=== PATIENT | female | born 1980 | race Caucasian/White ===

== ENCOUNTER 2016-09-11 19:09 | Emergency (ER) | payer MEDICAID ==
[~2016-09-11] VITALS: Ht 162.6 cm; Wt 68.0 kg
[~2016-09-11 19:09] MED LIST: CLIN1CAP6 PO; MAGICADU2 SWISH-SWAL; ZANT150T2 PO
[2016-09-11 19:13] VITALS: BP 128/76; PULSE 98; RESP 14; TEMP 98.2; O2SAT 96
== END 2016-09-11 22:10 | disposition left against medical advice (07) ==
LOC: NED 19:09
DX: R50.9 Fever, unspecified (principal)
CPT/HCPCS: 99281

== ENCOUNTER 2016-09-21 12:05 | Emergency (ER) | payer MEDICAID ==
[~2016-09-21] VITALS: Ht 162.6 cm; Wt 86.4 kg
[2016-09-21 12:07] VITALS: BP 119/68; PULSE 84; RESP 14; TEMP 98; O2SAT 98
--- NOTE | 2016-09-21 12:49 | PD ---
HPI . nausea and vomiting since yesterday Chief Complaint: Abdominal Pain Time Seen by Provider: 12:48 Travel History International Travel<30 days: No Contact w/Intl Traveler<30days: No Traveled to known affect area: No History of Present Illness HPI 36-year-old female with anxiety and depression here stating that she is 10 weeks and has had nausea for 1 day. Patient says she has been unable to keep down any food or liquids and was concerned about dehydration. She was treated approximately 2 weeks ago at another hospital for urinary tract infection. She tells me that she is urinating frequently and often time coincides with her vomiting. She denies any abdominal pain. She is concerned that she may have the flu. She has not yet established with an LAW RESEARCHER in the area. Patient denies any fever, chills, shortness of breath, chest pain, abdominal pain, weakness or fatigue. PFSH Past Medical History Arthritis: Yes Bipolar Disorder: Yes Anxiety: Yes Depression: Yes Cancer: No Cardiovascular Problems: No Diabetes: No Headaches: No Psychiatric: Yes (Reports treatment for bipolar disorder since age 13) Schizophrenia: Yes Seizures: No ?: : 8 Para: 5 Social History Alcohol Use: Yes Tobacco Use: Yes (07/27 ppd) Substance Use: Yes Allergies-Medications (Allergen,Severity, Reaction): Coded Allergies: Erythromycin (Verified Allergy, Severe, Anaphylaxis, 09/21/16) Penicillin (Verified Allergy, Severe, Anaphylaxis, 09/21/16) Naproxen (Verified Allergy, Intermediate, Hives, 09/21/16) Sulfa (Verified Allergy, Unknown, 09/21/16) Reported Meds & Prescriptions Reported Meds & Active Scripts Active Reglan (Metoclopramide HCl) 5 Mg Tab 5 Mg PO TIDAC Zantac (Ranitidine HCl) 150 Mg Tab 150 Mg PO BID Clindamycin (Clindamycin HCl) 300 Mg Cap 300 Mg PO TID Magic Mouthwash Adult Liq (Multi-Ingredient Mouthwash/Gargle) 120 Ml Susp 5 Ml SWISH-SWAL QID Each 5 mL contains: Nystatin 200,000 units, Diphenhydramine 4.25 mg, Viscous Lidocaine 10 mg, Talley syrup 0.8 mL Review of Systems General / Constitutional: No: Fever Eyes: No: Visual changes HENT: No: Headaches Cardiovascular: No: Chest Pain or Discomfort Respiratory: No: Shortness of Breath Gastrointestinal: Positive: Nausea, Vomiting, No: Abdominal Pain Genitourinary: No: Dysuria Musculoskeletal: No: Pain Skin: No Rash Neurologic: No: Weakness Psychiatric: No: Depression Endocrine: No: Polydipsia Hematologic/Lymphatic: No: Easy Bruising Physical Exam Narrative GENERAL: AAO x 3, no acute distress, Well-nourished, well-developed patient. Comfortable without any signs of distress. SKIN: Warm and dry. No visible rashes or bruising. HEAD: Normocephalic and atraumatic. EYES: No scleral icterus. No injection or drainage. EOM intact, PERRLA ENT: No nasal drainage noted. Mucous membranes pink. Airway patent. NECK: Supple, trachea midline. No JVD. CARDIOVASCULAR: Regular rate and rhythm without murmurs, gallops, or rubs. RESPIRATORY: Breath sounds equal bilaterally. No accessory muscle use. No rhonchi or rales. GASTROINTESTINAL: Abdomen soft, non-tender, nondistended. EXTREMITIES: No cyanosis or edema. BACK: Nontender without obvious deformity. No CVA tenderness. PSYCH: AAO x 3, normal affect. Data Data Last Documented VS Vital Signs Date Time Temp Pulse Resp B/P Pulse Ox O2 Delivery O2 Flow Rate FiO2 09/21/16 15:02 148/61 09/21/16 12:07 98.0 84 14 98 Orders Complete Blood Count With Diff (09/21/16 12:56) Urinalysis - C+S If Indicated (09/21/16 12:56) Influenzae A/B Antigen (09/21/16 12:56) Beta Hcg (Quant/Titer) (09/21/16 12:59) Sodium Chlor 0.9% 1000 Ml Inj (Ns 1000 M (09/21/16 14:00) Prochlorperazine Inj (Compazine Inj) (09/21/16 14:00) Basic Metabolic Panel (Bmp) (09/21/16 13:30) Metoclopramide Inj (Reglan Inj) (09/21/16 14:15) Sodium Chlor 0.9% 1000 Ml Inj (Ns 1000 M (09/21/16 15:30) Labs Laboratory Tests Test 09/21/16 13:30 White Blood Count 17.6 TH/MM3 Red Blood Count 4.74 MIL/MM3 Hemoglobin 14.5 GM/DL Hematocrit 42.8 % Mean Corpuscular Volume 90.2 FL Mean Corpuscular Hemoglobin 30.5 PG Mean Corpuscular Hemoglobin 33.8 % Concent Red Cell Distribution Width 12.9 % Platelet Count 310 TH/MM3 Mean Platelet Volume 8.7 FL Neutrophils (%) (Auto) 74.7 % Lymphocytes (%) (Auto) 20.0 % Monocytes (%) (Auto) 4.7 % Eosinophils (%) (Auto) 0.2 % Basophils (%) (Auto) 0.4 % Neutrophils # (Auto) 13.1 TH/MM3 Lymphocytes # (Auto) 3.5 TH/MM3 Monocytes # (Auto) 0.8 TH/MM3 Eosinophils # (Auto) 0.0 TH/MM3 Basophils # (Auto) 0.1 TH/MM3 CBC Comment DIFF FINAL Differential Comment Urine Color YELLOW Urine Turbidity CLEAR Urine pH 6.0 Urine Specific [place] 1.030 Urine Protein TRACE mg/dL Urine Glucose (UA) NEG mg/dL Urine Ketones 80 mg/dL Urine Occult Blood NEG Urine Nitrite NEG Urine Bilirubin NEG Urine Urobilinogen LESS THAN 2.0 MG/DL Urine Leukocyte Esterase NEG Urine RBC 3 /hpf Urine WBC 2 /hpf Urine Squamous Epithelial 4 /hpf Cells Urine Mucus MANY /lpf Microscopic Urinalysis Comment CULT NOT INDICATED Sodium Level 139 MEQ/L Potassium Level 4.3 MEQ/L Chloride Level 107 MEQ/L Carbon Dioxide Level 22.4 MEQ/L Anion Gap 10 MEQ/L Blood Urea Nitrogen 12 MG/DL Creatinine 0.62 MG/DL Estimat Glomerular Filtration 108 ML/MIN Rate Random Glucose 78 MG/DL Calcium Level 9.2 MG/DL Human Chorionic Gonadotropin, [id number] MIU/ML Quant [facility] Medical Decision Making Medical Screen Exam Complete: Yes Emergency Medical Condition: Yes Medical Record Reviewed: Yes Differential Diagnosis Gastroenteritis, hyperemesis gravidarum, influenza Narrative Course 36-year-old female with anxiety and depression here stating that she is 10 weeks and has had nausea for 1 day. Patient says she has been unable to keep down any food or liquids and was concerned about dehydration. She was treated approximately 2 weeks ago at another hospital for urinary tract infection. She tells me that she is urinating frequently and often time coincides with her vomiting. She denies any abdominal pain. She is concerned that she may have the flu. She has not yet established with an LAW RESEARCHER in the area. Patient denies any fever, chills, shortness of breath, chest pain, abdominal pain, weakness or fatigue. Labs ordered. Results appreciated. Laboratory Tests Test 09/21/16 13:30 White Blood Count 17.6 TH/MM3 Red Blood Count 4.74 MIL/MM3 Hemoglobin 14.5 GM/DL Hematocrit 42.8 % Mean Corpuscular Volume 90.2 FL Mean Corpuscular Hemoglobin 30.5 PG Mean Corpuscular Hemoglobin 33.8 % Concent Red Cell Distribution Width 12.9 % Platelet Count 310 TH/MM3 Mean Platelet Volume 8.7 FL Neutrophils (%) (Auto) 74.7 % Lymphocytes (%) (Auto) 20.0 % Monocytes (%) (Auto) 4.7 % Eosinophils (%) (Auto) 0.2 % Basophils (%) (Auto) 0.4 % Neutrophils # (Auto) 13.1 TH/MM3 Lymphocytes # (Auto) 3.5 TH/MM3 Monocytes # (Auto) 0.8 TH/MM3 Eosinophils # (Auto) 0.0 TH/MM3 Basophils # (Auto) 0.1 TH/MM3 CBC Comment DIFF FINAL Differential Comment Urine Color YELLOW Urine Turbidity CLEAR Urine pH 6.0 Urine Specific [place] 1.030 Urine Protein TRACE mg/dL Urine Glucose (UA) NEG mg/dL Urine Ketones 80 mg/dL Urine Occult Blood NEG Urine Nitrite NEG Urine Bilirubin NEG Urine Urobilinogen LESS THAN 2.0 MG/DL Urine Leukocyte Esterase NEG Urine RBC 3 /hpf Urine WBC 2 /hpf Urine Squamous Epithelial 4 /hpf Cells Urine Mucus MANY /lpf Microscopic Urinalysis Comment CULT NOT INDICATED Sodium Level 139 MEQ/L Potassium Level 4.3 MEQ/L Chloride Level 107 MEQ/L Carbon Dioxide Level 22.4 MEQ/L Anion Gap 10 MEQ/L Blood Urea Nitrogen 12 MG/DL Creatinine 0.62 MG/DL Estimat Glomerular Filtration 108 ML/MIN Rate Random Glucose 78 MG/DL Calcium Level 9.2 MG/DL Human Chorionic Gonadotropin, [id number] MIU/ML Quant Date/Time Procedure Status Source Growth 09/21/16 13:30 Influenza Types A,B Antigen ([facility]) - Final Complete Nasal Washing NEGATIVE FOR FLU A AND B ANTIGEN.... discussed with Dr. Boyd. Will provide 2 liters of fluid and discharge. Patient has been instructed to f/u with endoscopy support specialist Provided short rx of Reglan Patient verbalized understanding of instructions, questions were answered, and thanked me for their care. I advised them if their condition worsens, please return to the nearest emergency room for further care. Diagnosis Primary Impression: Nausea & vomiting Qualified Code: R11.2 - Non-intractable vomiting with nausea, unspecified vomiting type Additional Impression: Hyperemesis gravidarum Patient Instructions: General Instructions, Hyperemesis Gravidarum (ED) Additional Instructions: Please return to emergency department if your symptoms return or worsen. Follow up with your primary care provider. You will need to establish with an ob /scrum project manager as soon as possible. Take medications as prescribed. Med/Other Pt SpecificInfo: Prescription(s) given Scripts Metoclopramide (Reglan)5 Mg Tab5 Mg PO TIDAC #20 TAB Ref 0 Prov:Shanta Seymour 09/21/16 Disposition: 01 DISCHARGE HOME Condition: Stable Shanta Seymour Sep 21, 2016 12:49
[2016-09-21] MEDS ORDERED: SODIUM CHLOR 0.9% 1000 ML INJ 1,000 ML IV ONE ×2 (14:00→15:30)
[2016-09-21] MEDS ORDERED: PROCHLORPERAZINE INJ 10 MG/2 ML VIAL IVS ONE (14:00)
[2016-09-21 14:02] LABS: AUTOMATED NEUTROPHIL # 13.1 TH/MM3 (1.8-7.7); BASOPHIL # 0.1 TH/MM3 (0-0.2); BASOPHIL % 0.4 % (0.0-2.0); EOSINOPHIL % 0.2 % (0.0-4.0); HEMATOCRIT 42.8 % (35.0-46.0); HEMO FLAGS DIFF FINAL; LYMPHOCYTE # 3.5 TH/MM3 (1.0-4.8); MEAN CELL VOLUME 90.2 FL (80.0-100.0); MEAN CORPUSCULAR HEMOGLOBIN 30.5 PG (27.0-34.0); MEAN CORPUSCULAR HGB CONC 33.8 % (32.0-36.0); MONO % 4.7 % (0.0-8.0); NEUT % 74.7 % (16.0-70.0); PLATELET COUNT 310 TH/MM3 (150-450); RED BLOOD COUNT 4.74 MIL/MM3 (4.00-5.30); RED CELL DISTRIBUTION WIDTH 12.9 % (11.6-17.2); WHITE BLOOD COUNT 17.6 TH/MM3 (4.0-11.0)
[2016-09-21] MEDS ORDERED: METOCLOPRAMIDE HCL 10 MG/2 ML VIAL IV PUSH ONE (14:15)
[2016-09-21 14:20] LABS: BICARBONATE 22.4 MEQ/L (21.0-32.0)
[2016-09-21 14:23] LABS: POTASSIUM 4.3 MEQ/L (3.5-5.1)
[2016-09-21 14:36] LABS: BLOOD, URINE NEG (NEG); COMMENT (UR) CULT NOT INDICATED; CULTURE IF INDICATED CULT NOT INDICATED; GLUCOSE,URINE NEG (NEG); KETONE, URINE 80 mg/dL (NEG); MUCUS URINE MANY /lpf (OCC); NITRITE,URINE NEG (NEG); SQUAMOUS EPITHELIAL CELL URINE 4 /hpf (0-5); URINE COLOR YELLOW (YELLW/STRAW)
[2016-09-21 15:02] VITALS: BP 148/61
[2016-09-21] MEDS ORDERED: REGL5TAB PO (15:48)
[2016-09-21 16:46] VITALS: BP 142/75
== END 2016-09-21 16:50 | disposition home or self-care (01) ==
LOC: NEPC 12:05
DX: O21.0 Mild hyperemesis gravidarum (principal); R35.0 Frequency of micturition; F17.200 Nicotine dependence, unspecified, uncomplicated; Z87.39 Personal history of other diseases of the musculoskeletal system and connective tissue; Z86.59 Personal history of other mental and behavioral disorders; Z3A.10 10 weeks gestation of pregnancy
CPT/HCPCS: 80048; 81001; 84702; 85025; 87804; 96361; 96374; 99284; J2765; J7030

== ENCOUNTER 2016-12-28 04:00 | Emergency (ER) | payer MEDICAID ==
[~2016-12-28] VITALS: Ht 162.6 cm; Wt 90.0 kg
[~2016-12-28 04:00] MED LIST changes: +REGL5TAB PO
[2016-12-28 04:01] VITALS: BP 105/63; PULSE 79; RESP 18; TEMP 97.9; O2SAT 98
[2016-12-28 04:51] LABS: BLOOD, URINE NEG (NEG); GLUCOSE,URINE NEG (NEG); KETONE, URINE NEG (NEG); NITRITE,URINE NEG (NEG); PH, URINE 5.5 (5.0-8.5); URINE COLOR YELLOW (YELLW/STRAW)
[2016-12-28 04:56] LABS: WBC, URINE 0-2 /hpf (0-5)
[2016-12-28 04:57] LABS: BACTERIA, URINE RARE /hpf; COMMENT (UR) CULT NOT INDICATED; CULTURE IF INDICATED CULT NOT INDICATED; SQUAMOUS EPITHELIAL CELL URINE > 8 /hpf (0-5)
--- NOTE | 2016-12-28 06:25 | PD ---
HPI Chief Complaint: Complaint Time Seen by Provider: 04:31 Travel History International Travel<30 days: No Contact w/Intl Traveler<30days: No Traveled to known affect area: No History of Present Illness HPI The patient is a 36 year old female reportedly at 6 months gestation who presents to the [facility] emergency department with a history of abdominal cramping that began last night. She reports having a cramping sensation over her bladder with stress incontinence when she coughs. The patient reports that she believes she has a urinary tract infection. She denies having any vaginal discharge or vaginal bleeding. The patient reports that her due date is in April. The patient reports that she is feeling the baby move well. The patient reports that her [facility] The patient denies any recent fevers, cough, congestion, neck pain, chest pain, shortness of breath, vomiting, diarrhea, or neurologic symptoms. 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 Arthritis: Yes Bipolar Disorder: Yes Anxiety: Yes Depression: Yes Cancer: No Cardiovascular Problems: No Diabetes: No Headaches: No Psychiatric: Yes (Reports treatment for bipolar disorder since age 13) Schizophrenia: Yes Seizures: No ?: LMP: 05/2016 : 8 Para: 5 Past Surgical History Narrative Surgical The patient's past surgical history is reportedly none. Social History Alcohol Use: No Tobacco Use: Yes (2 packs over a week) Substance Use: No Allergies-Medications (Allergen,Severity, Reaction): Coded Allergies: Erythromycin (Verified Allergy, Severe, Anaphylaxis, 09/21/16) Penicillin (Verified Allergy, Severe, Anaphylaxis, 09/21/16) Naproxen (Verified Allergy, Intermediate, Hives, 09/21/16) Sulfa (Verified Allergy, Unknown, 09/21/16) Reported Meds & Prescriptions Reported Meds & Active Scripts Active Reglan (Metoclopramide HCl) 5 Mg Tab 5 Mg PO TIDAC Zantac (Ranitidine HCl) 150 Mg Tab 150 Mg PO BID Clindamycin (Clindamycin HCl) 300 Mg Cap 300 Mg PO TID Magic Mouthwash Adult Liq (Multi-Ingredient Mouthwash/Gargle) 120 Ml Susp 5 Ml SWISH-SWAL QID Each 5 mL contains: Nystatin 200,000 units, Diphenhydramine 4.25 mg, Viscous Lidocaine 10 mg, Talley syrup 0.8 mL Review of Systems Except as stated in HPI: all other systems reviewed are Neg General / Constitutional: No: Fever Eyes: No: Visual changes HENT: No: Headaches Cardiovascular: No: Chest Pain or Discomfort Respiratory: No: Shortness of Breath Gastrointestinal: Positive: Abdominal Pain, No: Nausea, Vomiting, Diarrhea Genitourinary: Positive: Urgency, Frequency, Dribbling, Incontinence, No: Dysuria, Discharge, Vaginal Bleeding Musculoskeletal: No: Pain Skin: No Rash Neurologic: No: Weakness Psychiatric: No: Depression Endocrine: No: Polydipsia Hematologic/Lymphatic: No: Easy Bruising Physical Exam Narrative General: The patient is a well-developed well-nourished female in no acute distress. Head and Neck exam: Head is normocephalic atraumatic. Eyes: EOMI, pupils are equal round and reactive to light. Nose: Midline septum with pink mucous membranes Mouth: Dentition unremarkable. Moist mucus membranes. Posterior oropharynx is not erythematous. No tonsillar hypertrophy. Uvula midline. Airway patent. Neck: No palpable lymphadenopathy. No nuchal rigidity. No thyromegaly. Cardiovascular: Regular rate and rhythm without murmurs, gallops, or rubs. Lungs: Clear to auscultation bilaterally. No wheezes, rhonchi, or rales. Abdomen: Soft, with the fundus well above the umbilicus on palpation. No tenderness on palpation of the 4 quadrants of the abdomen No guarding, rebound, or rigidity. Negative [place] sign. Normal bowel sounds are audible. No tenderness on palpation of McBurney's point. Extremities: No clubbing or cyanosis. The patient has trace pedal edema bilateral lower extremities. 2+ pulses in all 4 extremities. No calf tenderness on palpation. Back: No costovertebral angle tenderness to palpation. Neurologic Exam: Cranial nerves 2-12 were intact on exam. Strength is 5/5 in all 4 extremities. No sensory deficits noted. The patient is oriented to person, place, time, and situation. Skin Exam: No rash noted. Intact skin that is warm and dry. Data Data Last Documented VS Vital Signs Date Time Temp Pulse Resp B/P Pulse Ox O2 Delivery O2 Flow Rate FiO2 6//17 04:01 97.9 79 18 105/63 98 Room Air Orders Urinalysis - C+S If Indicated (12/28/16 04:31) Gc And Chlamydia Pcr (12/28/16 05:25) Wet Prep Profile (12/28/16 05:25) Ed Urine Pregnancytest Poc (12/28/16 05:25) Labs Laboratory Tests Test 12/28/16 04:30 Urine Color YELLOW Urine Turbidity HAZY Urine pH 5.5 Urine Specific [place] 1.010 Urine Protein NEG mg/dL Urine Glucose (UA) NEG mg/dL Urine Ketones NEG mg/dL Urine Occult Blood NEG Urine Nitrite NEG Urine Bilirubin NEG Urine Urobilinogen LESS THAN 2.0 MG/DL Urine Leukocyte Esterase NEG Urine WBC 0-2 /hpf Urine Squamous Epithelial > 8 /hpf Cells Urine Bacteria RARE /hpf Microscopic Urinalysis Comment CULT NOT INDICATED MDM Medical Decision Making Medical Screen Exam Complete: Yes Emergency Medical Condition: Yes Medical Record Reviewed: Yes Differential Diagnosis labor, versus urinary tract infection, versus dehydration, versus premature rupture of membranes Narrative Course During the course of the patients emergency department visit, the patients history, examination, and differential diagnosis were reviewed with the patient. Initially, the patient's nurse was not aware that the patient was as far along as she is in this . Initially, the patient had not reported cramping in the suprapubic area. After my initial evaluation of the patient, it was deemed necessary for the patient to be evaluated in OB ED. I explained this patient is a patient could be in labor, versus have premature rupture of membranes, however in spite of this the patient refused to go to labor and delivery. She reports that she will instead follow-up with her OB/ [employer] ABATEMENT TECHNICIAN later today. I explained that if she is in labor reports experiencing cervical dilatation this could be too late for treatment. In spite of this the patient has elected to leave AGAINST MEDICAL ADVICE. The patients laboratory studies were reviewed and remarkable for a urinalysis that shows hazy urine, greater than 8 squamous epithelial cells. Bedside test is positive. AMA: The risks of leaving against medical advice without further evaluation treatment were discussed with the patient. These risks include premature delivery, versus demise, versus endometritis. The patient indicated understanding of these risks and appeared to have the capacity to make this decision. Diagnosis Primary Impression: Abdominal pain affecting Referrals: Registered Art Therapist Patient Instructions: Abdominal Pain in (ED), General Instructions Disposition: 07 AGAINST MEDICAL ADVICE Condition: Stable Gabrielle Vazquez MD Dec 28, 2016 06:25
== END 2016-12-28 06:25 | disposition left against medical advice (07) ==
LOC: NEPE 04:00 → HOBED 06:25
DX: O26.899 Other specified pregnancy related conditions, unspecified trimester (principal); R10.9 Unspecified abdominal pain; Z3A.00 Weeks of gestation of pregnancy not specified
CPT/HCPCS: 81001; 84703; 99282

== ENCOUNTER 2017-01-17 11:27 | Emergency (ER) | payer MEDICAID ==
[2017-01-17] MEDS ORDERED: ONDANSETRON HCL 4 MG/2 ML VIAL IV ONE (12:00)
[2017-01-17] MEDS ORDERED: METOCLOPRAMIDE HCL 10 MG/2 ML VIAL IV PUSH ONE (12:00)
[2017-01-17] MEDS ORDERED: LACTATED RINGER'S 1000 ML INJ 1,000 ML IV SCH (12:00)
[2017-01-17] MEDS ORDERED: PROM25TA10 PO (12:11)
--- NOTE | 2017-01-17 12:11 | PD ---
HPI Chief Complaint Nausea and vomiting Date Seen: Jan 17, 2017 Travel History International Travel<30 Days: No Contact w/Intl Traveler<30Days: No Known Affected Area: No History of Present Illness HPI Patient is 36-year-old white female A2 at 28 weeks who presents complaining of nausea and vomiting last several days. Denies bleeding or rupture the membranes baby is moving, no contractions seen, and heart rate tracing is reactive 28 weeks [facility] but that was discharged from them because she keep her appointments she's trying to get a new doctor in the area locally. She denies fever or diarrhea Para: 5 : 8 History Obstetric History Obstetric History 5 vaginal deliveries 2 early losses and 1 termination Social History Alcohol Use: No Tobacco Use: Yes Substance Abuse: No Allergies-Medications (Allergen,Severity, Reaction): Coded Allergies: Erythromycin (Verified Allergy, Severe, Anaphylaxis, 09/21/16) Penicillin (Verified Allergy, Severe, Anaphylaxis, 09/21/16) Naproxen (Verified Allergy, Intermediate, Hives, 09/21/16) Sulfa (Verified Allergy, Unknown, 09/21/16) Home Meds Active Scripts Metoclopramide (Reglan)5 Mg Tab5 Mg PO TIDAC #20 TAB Ref 0 Prov:Shanta Seymour 09/21/16 Ranitidine (Zantac)150 Mg [id number] Mg PO BID #60 TAB Ref 0 Prov:Amy Rubin MD 07/11/16 Clindamycin 300 Mg [id number] Mg PO TID #21 CAP Ref 0 Prov:Amy Rubin MD 07/11/16 Hpmblywi-Dpczhzatdglqkvd-Swrgswnks Liq (Magic Mouthwash Adult Liq)120 Ml Susp5 Ml SWISH-SWAL QID #120 ML Ref 0 Each 5 mL contains: Nystatin 200,000 units, Diphenhydramine 4.25 mg, Viscous Lidocaine 10 mg, Talley syrup 0.8 mL Prov:Maricruz Rutherford MD 05/31/16 Review of Systems General / Constitutional: No: Fever, Weight Gain, Chills, Other Eyes: No: Diploplia, Blurred Vision, Visual changes, Pain, Photophobia HENT: No: Headaches, Vertigo, Lightheadedness Cardiovascular: No: Irregular Rhythm, Chest Pain or Discomfort, Palpitations, Tachycardia, Syncope, Varicosities, Edema, Cyanosis Respiratory: No: Cough, Short of Breath, Other Gastrointestinal: Nausea, Vomiting, No: Diarrhea Genitourinary: No: Decreased Urinary Output, Oliguria Musculoskeletal: No: Limited ROM, Weakness, Cramping, Edema, Pain Skin: No Rash, No Itching, No Dryness, No Lumps, No Change in Pigmentation, No Change in Nails, No Alopecia, No Lesions Neurologic: No: Weakness, Dizziness, Syncope, Focal Abnormalities, Coordination Problem, Headache, Slurred Speech, Seizures Psychiatric: No: Depression, Suicidal Ideations, Homicidal Ideation Endocrine: No: Heat Intolerance, Cold Intolerance, Polydipsia, Polyuria, Other Physical Exam Narrative GENERAL: Well-nourished, well-developed patient. SKIN: Warm and dry. HEAD: Normocephalic and atraumatic. EYES: No scleral icterus. No injection or drainage. ENT: No nasal drainage noted. Mucous membranes pink. Airway patent. NECK: Supple, trachea midline. No JVD. CARDIOVASCULAR: Regular rate and rhythm without murmurs, gallops, or rubs. RESPIRATORY: Breath sounds equal bilaterally. No accessory muscle use. BREASTS: Bilateral exam showed no masses , no retractions, no nipple discharge. ABDOMEN/GI: Abdomen soft, non-tender, bowel sounds present, no rebound, no guarding Gravid to [-28] weeks size Fundal Height: [28-] GENITOURINARY: External Genitalia: intact and normal in appearance BUS glands: [-] Cervix: [-] Dilatation: [Closed-] Effacement: [-] Thick Station: [-3] Membranes: [intact ] Uterine Contractions: [none-] FHT's: Category: [1-] Baseline: [133-] Reactive: [-yes] Variability: [mod-] Decels: [0-] EXTREMITIES: No cyanosis or edema. BACK: Nontender without obvious deformity. No CVA tenderness. NEUROLOGICAL: Awake and alert. Motor and sensory grossly within normal limits. Five out of 5 muscle strength in all muscle groups. Normal speech. Data Data Orders Vital Signs (Adult) .ON ADMISSION (01/17/17 11:58) ^ Labor Status (01/17/17 11:58) Urinalysis - C+S If Indicated (01/17/17 11:58) Comprehensive Metabolic Panel (01/17/17 11:58) Lactated Ringer's 1000 Ml Inj (Lr 1000 M (01/17/17 11:58) Ondansetron Inj (Zofran Inj) (01/17/17 12:00) Ob/Psych Drug Screen, Urine (01/17/17 11:58) Metoclopramide Inj (Reglan Inj) (01/17/17 12:00) MDM Interpretation(s) Patient is 36-year-old white female A2 28 weeks presents complaining of nausea and vomiting for a few days to a week, denies bleeding or leakage of fluid baby is active heart rate tracing is reactive and she is not damaris. Cervix is closed. Patient received a liter of IV fluid for hydration IV Zofran 4 mg and a prescription for Phenergan by mouth to use at home also instructed on bland diet and how to proceed to take in foods Plan Plan for her to continue bland diet at home also, increase oral fluid intake, Tylenol as needed when necessary, continue to use Phenergan orally and follow up with her OB provider in the near future. Bedrest, heating pad or hot bath or discomforts Diagnosis Diagnosis: Primary Impression: Nausea and vomiting during Disposition: 01 DISCHARGE HOME Condition: Stable Scripts Promethazine (Phenergan)25 Mg [id number] Mg PO Q6H PRN (NAUSEA OR VOMITING) #20 TAB Ref 0 Prov:Dylon Arroyo II, MD 01/17/17 Dylon Arroyo II, MD Jan 17, 2017 12:11
== END 2017-01-17 13:10 | disposition home or self-care (01) ==
LOC: HOBED 11:27
DX: O21.2 Late vomiting of pregnancy (principal); Z3A.28 28 weeks gestation of pregnancy
CPT/HCPCS: 96361; 96374; 99284; J2405; J7120

== ENCOUNTER 2017-02-08 18:10 | Emergency (ER) | payer MEDICAID ==
[~2017-02-08 18:10] MED LIST changes: +PROM25TA10 PO
--- NOTE | 2017-02-08 19:14 | PD ---
HPI Chief Complaint Cramping with occasional nausea Date Seen: Feb 08, 2017 Time Seen: 19:10 Travel History International Travel<30 Days: No Contact w/Intl Traveler<30Days: No Known Affected Area: No History of Present Illness HPI 36-year-old who is at 28 weeks 6 days comes in complaining of occasional pelvic cramping with nausea. Patient is successfully treating her nausea with Phenergan but ran out of her prescription. She was discharged from her OB practice due to missed appointments. Patient states that she occasionally has some lower abdominal cramping but none is present now. Patient is not had any emesis several days and is able to keep down fluids and solid food. She is looking for an OB practice to reinitiate her care. Para: 5 : 8 Miscarriage: 2 : 1 History Past Medical History Medical History: Denies Significant Hx Obstetric History Obstetric History Spontaneous vaginal delivery at term 5 Past Surgical History Surgical History: No Previous Surgery Family History Family History: Negative Social History Alcohol Use: No Tobacco Use: No Substance Abuse: No Allergies-Medications (Allergen,Severity, Reaction): Coded Allergies: Erythromycin (Verified Allergy, Severe, Anaphylaxis, 09/21/16) Penicillin (Verified Allergy, Severe, Anaphylaxis, 09/21/16) Naproxen (Verified Allergy, Intermediate, Hives, 09/21/16) Sulfa (Verified Allergy, Unknown, 09/21/16) Home Meds Active Scripts Promethazine (Phenergan)25 Mg [id number] Mg PO Q6H PRN (NAUSEA OR VOMITING) #20 TAB Ref 0 Prov:Dylon Arroyo II, MD 01/17/17 Metoclopramide (Reglan)5 Mg Tab5 Mg PO TIDAC #20 TAB Ref 0 Prov:Shanta Seymour 09/21/16 Ranitidine (Zantac)150 Mg [id number] Mg PO BID #60 TAB Ref 0 Prov:Amy Rubin MD 07/11/16 Clindamycin 300 Mg [id number] Mg PO TID #21 CAP Ref 0 Prov:Amy Rubin MD 07/11/16 Huzhypbz-Njentmcjobbdjep-Mesobpeax Liq (Magic Mouthwash Adult Liq)120 Ml Susp5 Ml SWISH-SWAL QID #120 ML Ref 0 Each 5 mL contains: Nystatin 200,000 units, Diphenhydramine 4.25 mg, Viscous Lidocaine 10 mg, Talley syrup 0.8 mL Prov:Maricruz Rutherford MD 05/31/16 Review of Systems Except as stated in HPI: all other systems reviewed are Neg Physical Exam Narrative GENERAL: Well-nourished, well-developed patient. SKIN: Warm and dry. HEAD: Normocephalic and atraumatic. EYES: No scleral icterus. No injection or drainage. ENT: No nasal drainage noted. Mucous membranes pink. Airway patent. NECK: Supple, trachea midline. No JVD. CARDIOVASCULAR: Regular rate and rhythm without murmurs, gallops, or rubs. RESPIRATORY: Breath sounds equal bilaterally. No accessory muscle use. BREASTS: Bilateral exam showed no masses , no retractions, no nipple discharge. ABDOMEN/GI: Abdomen soft, non-tender, bowel sounds present, no rebound, no guarding Gravid to [-28] weeks size Fundal Height: [-] GENITOURINARY: External Genitalia: intact and normal in appearance BUS glands: [-Normal] Cervix: [Posterior-] Dilatation: [Closed-] Effacement: [-Long] Station: [-High] Presentation: [Vertex-] Membranes: [intact ] Uterine Contractions: [-Absent] FHT's: Category: [-1] Baseline: [140-] Reactive: [-Moderate] Variability: [-Moderate] Decels: [-Absent] EXTREMITIES: No cyanosis or edema. BACK: Nontender without obvious deformity. No CVA tenderness. NEUROLOGICAL: Awake and alert. Motor and sensory grossly within normal limits. Five out of 5 muscle strength in all muscle groups. Normal speech. Data Data Vital Signs Reviewed: Yes [facility] Medical Record Reviewed: Yes Plan 36-year-old at 28 weeks 6 days no signs of labor at this time, patient has nausea and desires medication but she has no emesis. Patient was referred to care for women for transfer of care Phenergan was sent electronically to [facility] for the patient Diagnosis Diagnosis: Primary Impression: 28 weeks gestation of Additional Impressions: Advanced maternal age in multigravida Nausea and vomiting during Pelvic pain during in third trimester, antepartum Disposition: 01 DISCHARGE HOME Mackenzie Nolasco MD Feb 08, 2017 19:14
[2017-02-08] MEDS ORDERED: PROM25TA10 PO (19:18)
== END 2017-02-08 19:34 | disposition home or self-care (01) ==
LOC: HOBED 18:10
DX: O09.523 Supervision of elderly multigravida, third trimester (principal); O21.9 Vomiting of pregnancy, unspecified; O26.893 Other specified pregnancy related conditions, third trimester; R10.2 Pelvic and perineal pain; Z3A.28 28 weeks gestation of pregnancy
CPT/HCPCS: 99283

== ENCOUNTER 2017-04-29 07:51 | Inpatient (IN) | payer MEDICAID ==
[~2017-04-29] VITALS: Ht 162.6 cm; Wt 104.5 kg
[2017-04-29] VITALS (46 sets, daily range): BP systolic 88–126; BP diastolic 25–96; PULSE 76–165; RESP 18–20; TEMP 98.1–99.6
[~2017-04-29 07:51] MED LIST changes: -CLIN1CAP6 PO; -MAGICADU2 SWISH-SWAL; -REGL5TAB PO; -ZANT150T2 PO
[2017-04-29] MEDS ORDERED: LACTATED RINGER'S 1000 ML INJ 1,000 ML IV SCH (08:59)
[2017-04-29] MEDS ORDERED: LACTATED RINGER'S 1000 ML INJ 1,000 ML IV PRN (08:59)
[2017-04-29] MEDS ORDERED: LIDOCAINE HCL 1% 50 ML VIAL I-DERMAL PRN (09:00)
[2017-04-29] MEDS ORDERED: CITRIC ACID-SODIUM CITRATE LIQ 30 ML UDC PO SCH (09:00)
[2017-04-29] MEDS ORDERED: ONDANSETRON HCL 4 MG/2 ML VIAL IV PUSH PRN (09:00)
[2017-04-29] MEDS ORDERED: SODIUM CHLORID 0.9% 500 ML INJ 500 ML IV PRN (09:00)
[2017-04-29] MEDS ORDERED: MINERAL OIL 10 ML VIAL TOPICAL PRN (09:00)
[2017-04-29] MEDS ORDERED: LIDOCAINE HCL 1% 50 ML VIAL INFIL PRN (09:00)
[2017-04-29] MEDS ORDERED: OXYTOCIN 30 UNITS-500ML PREMIX 500 ML IV ONE (09:00)
[2017-04-29] MEDS ORDERED: OXYTOCIN 30 UNITS-500ML PREMIX 500 ML IV SCH ×2 (09:15→18:15)
[2017-04-29 09:18] LABS: AUTOMATED NEUTROPHIL # 12.1 TH/MM3 (1.8-7.7); BASOPHIL % 0.1 % (0.0-2.0); EOSINOPHIL # 0.1 TH/MM3 (0-0.4); EOSINOPHIL % 0.8 % (0.0-4.0); HEMATOCRIT 34.5 % (35.0-46.0); HEMO FLAGS DIFF FINAL; LYMPH % 23.6 % (9.0-44.0); LYMPHOCYTE # 4.1 TH/MM3 (1.0-4.8); MEAN CELL VOLUME 89.2 FL (80.0-100.0); MEAN CORPUSCULAR HGB CONC 33.6 % (32.0-36.0); MONO % 5.4 % (0.0-8.0); NEUT % 70.1 % (16.0-70.0); PLATELET COUNT 277 TH/MM3 (150-450); RED BLOOD COUNT 3.87 MIL/MM3 (4.00-5.30); RED CELL DISTRIBUTION WIDTH 13.6 % (11.6-17.2); WHITE BLOOD COUNT 17.3 TH/MM3 (4.0-11.0)
[2017-04-29] MEDS ORDERED: SODIUM CHLOR 0.9% 1000 ML INJ 1,000 ML IV PRN (09:19)
[2017-04-29 09:41] LABS: BACTERIA, URINE FEW /hpf; BLOOD, URINE TRACE (NEG); COMMENT (UR) CULT NOT INDICATED; CULTURE IF INDICATED CULT NOT INDICATED; GLUCOSE,URINE NEG (NEG); KETONE, URINE NEG (NEG); MUCUS URINE FEW /lpf (OCC); NITRITE,URINE NEG (NEG); PH, URINE 6.5 (5.0-8.5); SQUAMOUS EPITHELIAL CELL URINE 9 /hpf (0-5); URINE COLOR YELLOW (YELLW/STRAW)
--- NOTE | 2017-04-29 09:54 | PD ---
HPI Chief Complaint scheduled induction (Aarti Barry MD R1) Travel History International Travel<30 Days: No Contact w/Intl Traveler<30Days: No Known Affected Area: No (Aarti Barry MD R1) History of Present Illness HPI 36y/o @40/2 weeks presenting for scheduled induction. OB is Dr. Del Rosario. States induction was recommended due to baby's size (8lb. 6oz). +contractions +FM -leakage of fluid +vaginal blood spotting (noted since yesterday) course has been uneventful. GBS negative. Denies h/a, visual change, upper abdominal pain, leg swelling, dysuria. Weeks Gestation: 40 Para: 5 : 8 Miscarriage: 1 : 2 (Aarti Barry MD) History Past Medical History Medical History: Denies Significant Hx (Aarti Barry MD) Past Surgical History Surgical History: No Previous Surgery (Aarti Barry MD) Family History Narrative Family History Mom: ovarian cancer which was treated and in remission. Unfortunately, returned and spread to brain, causing . (Aarti Barry MD R1) Social History Alcohol Use: No Tobacco Use: Yes (2cigarretes/day) Substance Abuse: No (Aarti Barry MD) Allergies-Medications (Allergen,Severity, Reaction): Coded Allergies: erythromycin base (Unverified Allergy, Severe, Anaphylaxis, 04/28/17) penicillin G (Unverified Allergy, Severe, Anaphylaxis, 04/28/17) naproxen (Unverified Allergy, Intermediate, Hives, 04/28/17) Sulfa (Sulfonamide Antibiotics) (Unverified Allergy, Unknown, 04/28/17) Home Meds Active Scripts Promethazine (Phenergan) 25 Mg Tablet, 25 MG PO ONCE for Nausea/Vomiting, #20 TAB 1 Refill Prov:Chay Lyle MD 03/23/17 Promethazine (Phenergan) 25 Mg Tablet, 25 MG PO Q6H Y for NAUSEA OR VOMITING, # 20 TAB 1 Refill Prov:Carmella Burns 02/26/17 Review of Systems General / Constitutional: No: Fever, Chills Eyes: No: Blurred Vision, Visual changes HENT: No: Headaches Cardiovascular: No: Chest Pain or Discomfort, Palpitations Respiratory: No: Cough Gastrointestinal: Abdominal Pain (contractions since last evening), No: Nausea , Vomiting, Diarrhea Genitourinary: Vaginal Bleeding (spotted last evening), No: Urgency, Frequency , Dysuria, Discharge Musculoskeletal: No: Limited ROM, Weakness Skin: No Rash, No Itching, No Lesions Neurologic: No: Focal Abnormalities, Coordination Problem (Kenia Stiles MD ) Physical Exam Vital Signs Date Time Temp Pulse Resp B/P (MAP) Pulse Ox O2 Delivery O2 Flow Rate FiO2 04/29/17 08:30 98.7 20 04/29/17 08:23 87 110/64 (79) Narrative GENERAL: Well-nourished, well-developed patient. SKIN: Warm and dry. HEAD: Normocephalic and atraumatic. EYES: No scleral icterus. No injection or drainage. NECK: Supple, No JVD. CARDIOVASCULAR: Regular rate and rhythm without murmurs, gallops, or rubs. RESPIRATORY: Breath sounds equal bilaterally. No accessory muscle use. ABDOMEN/GI: Abdomen soft, non-tender, bowel sounds present, no rebound, no guarding Gravid to 40 weeks size GENITOURINARY: External Genitalia: intact and normal in appearance Cervix: post Dilatation: 4cm Effacement: 50% Station: -2 Presentation: [-] Membranes: [-] Uterine Contractions: yes FHT's: Category: 1 Baseline: 120 Reactive: yes Variability: mod Decels: no EXTREMITIES: No cyanosis or edema. NEUROLOGICAL: Awake and alert. Motor and sensory grossly within normal limits. Normal speech. (Aarti Barry MD R1) Data Data Orders Orders Admit To Inpatient (04/29/17 ) Code Status (04/29/17 08:59) Vital Signs (Adult) .Per protocol (04/29/17 08:59) Activity Oob Ad Leeann (04/29/17 08:59) Heart (04/29/17 08:59) Amnioinfusion (04/29/17 08:59) Urinary Catheter Management .ONCE (04/29/17 08:59) Diet Liquid (04/29/17 Breakfast) Lactated Ringer's 1000 Ml Inj (Lr 1000 M (04/29/17 08:59) Lactated Ringer's 1000 Ml Inj (Lr 1000 M (10/5/17 08:59) Sodium Chlorid 0.9% 500 Ml Inj (Ns 500 M (04/29/17 09:00) Sodium Chlor 0.9% 1000 Ml Inj (Ns 1000 M (04/29/17 09:19) Lidocaine 1% Inj (50 Ml) (Xylocaine 1% I (04/29/17 09:00) Citric Acid-Sodium Citrate Liq (Bicitra (04/29/17 09:00) Ondansetron Inj (Zofran Inj) (04/29/17 09:00) Fentanyl Inj (Fentanyl Inj) (04/29/17 09:00) Fentanyl Inj (Fentanyl Inj) (04/29/17 09:00) Complete Blood Count With Diff (04/29/17 08:59) Hold Clot (04/29/17 08:59) Abo/Rh Blood Type (04/29/17 08:59) Resp Oxygen Non Rebreathe Mask (04/29/17 ) ^ Epidural / Intrathecal Infus (04/29/17 08:59) Oxytocin 30 Units-500ml Premix (Pitocin (04/29/17 09:00) Lidocaine 1% Inj (50 Ml) (Xylocaine 1% I (04/29/17 09:00) Light Mineral Oil (Muri-Lube Oil) (04/29/17 09:00) Inpatient Certification (04/29/17 ) ^ Non Stress Test (04/29/17 09:10) Response To Medication .Post New Med Administration, Reaction (04/29/17 09:10) ^ Discontinue Medication (04/29/17 09:10) Oxytocin 30 Units-500ml Premix (Pitocin (04/29/17 09:15) Urinalysis - C+S If Indicated (04/29/17 09:21) Specimen To Be Collected PRN (04/29/17 09:21) Labs Laboratory Tests Test 04/29/17 08:20 White Blood Count 17.3 Red Blood Count 3.87 Hemoglobin 11.6 Hematocrit 34.5 Mean Corpuscular Volume 89.2 Mean Corpuscular Hemoglobin 30.0 Mean Corpuscular Hemoglobin Concent 33.6 Red Cell Distribution Width 13.6 Platelet Count 277 Mean Platelet Volume 10.4 Neutrophils (%) (Auto) 70.1 Lymphocytes (%) (Auto) 23.6 Monocytes (%) (Auto) 5.4 Eosinophils (%) (Auto) 0.8 Basophils (%) (Auto) 0.1 Neutrophils # (Auto) 12.1 Lymphocytes # (Auto) 4.1 Monocytes # (Auto) 0.9 Eosinophils # (Auto) 0.1 Basophils # (Auto) 0.0 CBC Comment DIFF FINAL Differential Comment Urine Color YELLOW Urine Turbidity HAZY Urine pH 6.5 Urine Specific [place] 1.017 Urine Protein NEG Urine Glucose (UA) NEG Urine Ketones NEG Urine Occult Blood TRACE Urine Nitrite NEG Urine Bilirubin NEG Urine Urobilinogen LESS THAN 2.0 Urine Leukocyte Esterase LARGE Urine RBC 3 Urine WBC 7 Urine Squamous Epithelial Cells 9 Urine Bacteria FEW Urine Mucus FEW Microscopic Urinalysis Comment CULT NOT INDICATED (Aarti Barry MD R1) MDM Interpretation(s) 36 y/o @ 40/2weeks admitted for labor induction. Plan - GBS negative, mom is smoker, baby expected weight 8lb 12 oz - FHT reassuring - cervix soft and dilated at 4 cm - start pitocin - expectant management DW Dr. Stiles (Aarti Barry MD R1) Attending Attestation 40 weeks Grandmultiparous Latent labor with irregular UC Augmentation of labor with Pitocin/AROM today Discussed with patient risks of PPH and shoulder dystocia. CAT I FHT. (Kenia Stiles MD) Diagnosis Diagnosis: Primary Impression: 40 weeks gestation of Aarti Barry MD R1 Apr 29, 2017 09:54 Kenia Stiles MD Apr 29, 2017 10:08
--- NOTE | 2017-04-29 10:06 | HHI.HP ---
History & Physical H&P HPI HPI Chief Complaint scheduled induction Travel History International Travel<30 Days: No Contact w/Intl Traveler<30Days: No Known Affected Area: No History of Present Illness HPI 36y/o @40/2 weeks presenting for scheduled induction. OB is Dr. Del Rosario. States induction was recommended due to baby's size (8lb. 6oz). +contractions +FM -leakage of fluid +vaginal blood spotting (noted since yesterday) course has been uneventful. GBS negative. Denies h/a, visual change, upper abdominal pain, leg swelling, dysuria. Weeks Gestation: 40 Para: 5 : 8 Miscarriage: 1 : 2 History (Limited) History Past Medical History Medical History: Denies Significant Hx Past Surgical History Surgical History: No Previous Surgery Family History Narrative Family History Mom: ovarian cancer which was treated and in remission. Unfortunately, returned and spread to brain, causing . Social History Alcohol Use: No Tobacco Use: Yes (2cigarretes/day) Substance Abuse: No Allergies-Medications Allergies-Medications (Allergen,Severity, Reaction): Coded Allergies: erythromycin base (Unverified Allergy, Severe, Anaphylaxis, 04/28/17) penicillin G (Unverified Allergy, Severe, Anaphylaxis, 04/28/17) naproxen (Unverified Allergy, Intermediate, Hives, 04/28/17) Sulfa (Sulfonamide Antibiotics) (Unverified Allergy, Unknown, 04/28/17) Home Meds Active Scripts Promethazine (Phenergan) 25 Mg Tablet, 25 MG PO ONCE for Nausea/Vomiting, #20 TAB 1 Refill Prov:Chay Lyle MD 03/23/17 Promethazine (Phenergan) 25 Mg Tablet, 25 MG PO Q6H Y for NAUSEA OR VOMITING, # 20 TAB 1 Refill Prov:Carmella Burns 02/26/17 ROS Review of Systems Physical Exam Physical Exam Vital Signs Date Time Temp Pulse Resp B/P (MAP) Pulse Ox O2 Delivery O2 Flow Rate FiO2 04/29/17 08:30 98.7 20 04/29/17 08:23 87 110/64 (79) Narrative GENERAL: Well-nourished, well-developed patient. SKIN: Warm and dry. HEAD: Normocephalic and atraumatic. EYES: No scleral icterus. No injection or drainage. NECK: Supple, No JVD. CARDIOVASCULAR: Regular rate and rhythm without murmurs, gallops, or rubs. RESPIRATORY: Breath sounds equal bilaterally. No accessory muscle use. ABDOMEN/GI: Abdomen soft, non-tender, bowel sounds present, no rebound, no guarding Gravid to 40 weeks size GENITOURINARY: External Genitalia: intact and normal in appearance Cervix: post Dilatation: 4cm Effacement: 50% Station: -2 Presentation: [-] Membranes: [-] Uterine Contractions: yes FHT's: Category: 1 Baseline: 120 Reactive: yes Variability: mod Decels: no EXTREMITIES: No cyanosis or edema. NEUROLOGICAL: Awake and alert. Motor and sensory grossly within normal limits. Normal speech. Data Data Data Orders Orders Admit To Inpatient (04/29/17 ) Code Status (04/29/17 08:59) Vital Signs (Adult) .Per protocol (04/29/17 08:59) Activity Oob Ad Leeann (04/29/17 08:59) Heart (04/29/17 08:59) Amnioinfusion (04/29/17 08:59) Urinary Catheter Management .ONCE (04/29/17 08:59) Diet Liquid (04/29/17 Breakfast) Lactated Ringer's 1000 Ml Inj (Lr 1000 M (04/29/17 08:59) Lactated Ringer's 1000 Ml Inj (Lr 1000 M (04/29/17 08:59) Sodium Chlorid 0.9% 500 Ml Inj (Ns 500 M (04/29/17 09:00) Sodium Chlor 0.9% 1000 Ml Inj (Ns 1000 M (04/29/17 09:19) Lidocaine 1% Inj (50 Ml) (Xylocaine 1% I (04/29/17 09:00) Citric Acid-Sodium Citrate Liq (Bicitra (04/29/17 09:00) Ondansetron Inj (Zofran Inj) (04/29/17 09:00) Fentanyl Inj (Fentanyl Inj) (04/29/17 09:00) Fentanyl Inj (Fentanyl Inj) (04/29/17 09:00) Complete Blood Count With Diff (04/29/17 08:59) Hold Clot (04/29/17 08:59) Abo/Rh Blood Type (04/29/17 08:59) Resp Oxygen Non Rebreathe Mask (04/29/17 ) ^ Epidural / Intrathecal Infus (04/29/17 08:59) Oxytocin 30 Units-500ml Premix (Pitocin (04/29/17 09:00) Lidocaine 1% Inj (50 Ml) (Xylocaine 1% I (04/29/17 09:00) Light Mineral Oil (Muri-Lube Oil) (04/29/17 09:00) Inpatient Certification (04/29/17 ) ^ Non Stress Test (04/29/17 09:10) Response To Medication .Post New Med Administration, Reaction (04/29/17 09:10) ^ Discontinue Medication (04/29/17 09:10) Oxytocin 30 Units-500ml Premix (Pitocin (04/29/17 09:15) Urinalysis - C+S If Indicated (04/29/17 09:21) Specimen To Be Collected PRN (04/29/17 09:21) Labs Laboratory Tests Test 04/29/17 08:20 White Blood Count 17.3 Red Blood Count 3.87 Hemoglobin 11.6 Hematocrit 34.5 Mean Corpuscular Volume 89.2 Mean Corpuscular Hemoglobin 30.0 Mean Corpuscular Hemoglobin Concent 33.6 Red Cell Distribution Width 13.6 Platelet Count 277 Mean Platelet Volume 10.4 Neutrophils (%) (Auto) 70.1 Lymphocytes (%) (Auto) 23.6 Monocytes (%) (Auto) 5.4 Eosinophils (%) (Auto) 0.8 Basophils (%) (Auto) 0.1 Neutrophils # (Auto) 12.1 Lymphocytes # (Auto) 4.1 Monocytes # (Auto) 0.9 Eosinophils # (Auto) 0.1 Basophils # (Auto) 0.0 CBC Comment DIFF FINAL Differential Comment Urine Color YELLOW Urine Turbidity HAZY Urine pH 6.5 Urine Specific [place] 1.017 Urine Protein NEG Urine Glucose (UA) NEG Urine Ketones NEG Urine Occult Blood TRACE Urine Nitrite NEG Urine Bilirubin NEG Urine Urobilinogen LESS THAN 2.0 Urine Leukocyte Esterase LARGE Urine RBC 3 Urine WBC 7 Urine Squamous Epithelial Cells 9 Urine Bacteria FEW Urine Mucus FEW Microscopic Urinalysis Comment CULT NOT INDICATED MDM MDM Interpretation(s) 36 y/o @ 40/2weeks admitted for labor induction. Plan - GBS negative, mom is smoker, baby expected weight 8lb 12 oz - FHT reassuring - cervix soft and dilated at 4 cm - start pitocin - expectant management DW Dr. Stiles Diagnosis Diagnosis: Primary Impression: 40 weeks gestation of (Aarti Barry MD R1) H&P 40 weeks Grandmultiparous Latent labor with irregular UC Augmentation of labor with Pitocin/AROM today Discussed with patient risks of PPH and shoulder dystocia. CAT I FHT. (Kenia Stiles MD) Aarti Barry MD R1 Apr 29, 2017 10:06 Kenia Stiles MD Apr 29, 2017 10:08
[2017-04-29] MEDS ORDERED: DIPHTH/TETANUS/ACEL PERTUSSIS (BOOSTER) 0.5 ML VIAL/PFS IM ONE (16:00)
[2017-04-29] MEDS ORDERED: MEASLES, MUMPS, RUBELLA VACCINE 0.5 ML VIAL SQ ONE (16:00)
[2017-04-29] MEDS ORDERED: DOCUSATE SODIUM 50 MG/SENNA 8.6 MG TAB PO PRN (18:15)
[2017-04-29] MEDS ORDERED: WITCH HAZEL 50%/GLYCERIN 12.5% 40 PAD JAR TOPICAL PRN (18:15)
[2017-04-29] MEDS ORDERED: SODIUM CHLORIDE 0.9% FLUSH 10 ML FLUSH IV FLUSH PRN (18:15)
[2017-04-29] MEDS ORDERED: oxyCODONE/ACETAMINOPHEN 5 MG/325 MG TAB PO PRN (18:15)
[2017-04-29] MEDS ORDERED: BENZOCAINE 20% TOPICAL SPRAY 60 ML CAN TOPICAL PRN (18:15)
[2017-04-29] MEDS ORDERED: ONDANSETRON ODT 4 MG TAB PO PRN (18:15)
[2017-04-29] MEDS ORDERED: ALUMINUM/MAGNESIUM/SIMETH 30 ML CUP PO PRN (18:15)
[2017-04-29] MEDS ORDERED: ACETAMINOPHEN 325 MG TAB PO PRN (18:15)
[2017-04-29] MEDS ORDERED: ZOLPIDEM TARTRATE 5 MG TAB PO PRN (18:15)
--- NOTE | 2017-04-29 18:19 | PD.OB.DELI ---
Weeks gestation: 40 Gest age assessed date: Apr 29, 2017 Gest age assessed time: 10:00 Pt started active labor?: Yes Active labor start date: Apr 29, 2017 Medical induction of labor?: Yes Artificial rupture of membrane: Yes Artificial ROM date: Apr 29, 2017 Artifical ROM time: 11:00 Anesthesia: None Episiotomy: None Vaginal Delivery: Normal Presentation: Occiput posterior Nuchal Cord: x1 Delayed cord clamping (45 sec): Yes Infant: Female Delivery date: Apr 29, 2017 Delivery time: 18:07 One Minute : 8 Five Minute : 9 Weight: 3785g Placenta: Spontaneous delivery, Intact, 3 vessel cord Laceration: No lacerations Estimated blood loss: 250cc Additional Information Supervised by Juanita Jaramillo MD, R3 Apr 29, 2017 18:19
[2017-04-29] MEDS: oxyCODONE/ACETAMINOPHEN 5 MG/325 MG TAB PO PRN ×2 (19:08→23:02)
[2017-04-29] MEDS ORDERED: SODIUM CHLORIDE 0.9% FLUSH 10 ML FLUSH IV FLUSH SCH (21:00)
[2017-04-30 02:00] VITALS: BP 100/54; PULSE 92; RESP 18; TEMP 97.9
[2017-04-30 07:41] VITALS: BP 104/69; PULSE 83; RESP 18; TEMP 98.2; O2SAT 98
[2017-04-30] MEDS: oxyCODONE/ACETAMINOPHEN 5 MG/325 MG TAB PO PRN ×4 (08:40→21:36)
--- NOTE | 2017-04-30 09:30 | HHI.OB ---
Subjective Post Day: 1 Remarks day #1. AFVSS overnight. Pain controlled with medications. Decreased lochia. Denies dysuria. No breast tenderness. She is feeding the baby via breast/bottle. Appetite good. No nausea or vomiting. Endorses flatus. No bowel movement. Ambulating well. Denies calf pain, shortness of breath, or cough. Otherwise, she is doing well this morning and has no other complaints. Objective Vitals/I&O Vital Signs Date Time Temp Pulse Resp B/P (MAP) Pulse Ox O2 Delivery O2 Flow Rate FiO2 04/30/17 07:41 98.2 18 98 04/30/17 07:41 83 104/69 (81) 04/30/17 02:00 97.9 18 04/30/17 02:00 92 100/54 (69) 04/29/17 22:05 90 95/52 (66) 04/29/17 22:05 98.1 18 04/29/17 20:35 18 04/29/17 20:31 99 110/58 (75) 04/29/17 20:20 18 04/29/17 20:15 95 104/56 (72) 04/29/17 20:05 18 04/29/17 20:01 153 89/58 (68) 04/29/17 19:50 98.9 18 04/29/17 19:45 109/96 (100) 04/29/17 19:35 18 04/29/17 19:35 98.9 04/29/17 19:34 91 103/53 (70) 04/29/17 19:31 91 115/84 (94) 04/29/17 19:01 98 121/45 (70) 04/29/17 18:50 20 04/29/17 18:35 20 04/29/17 18:31 94 122/49 (73) 04/29/17 18:22 94 126/46 (72) 04/29/17 18:20 99.6 20 04/29/17 18:01 138 103/65 (78) 04/29/17 17:30 128 112/64 (80) 04/29/17 17:00 90 112/73 (86) 04/29/17 16:23 20 04/29/17 16:22 120 92/38 (56) 04/29/17 15:30 90 110/58 (75) 04/29/17 15:00 102/73 (83) 04/29/17 15:00 119 04/29/17 14:30 117/78 (91) 04/29/17 14:00 86 125/66 (85) 04/29/17 13:30 88 108/60 (76) 04/29/17 13:12 98.5 04/29/17 13:08 20 04/29/17 13:04 85 100/53 (69) 04/29/17 13:02 88/72 (77) 04/29/17 12:31 76 106/56 (73) 04/29/17 12:15 18 04/29/17 12:00 90 106/69 (81) 04/29/17 11:45 18 04/29/17 11:32 139 104/32 (56) 04/29/17 11:15 82 112/65 (81) 04/29/17 11:09 18 04/29/17 10:20 165 105/52 (69) 04/29/17 10:16 95 04/29/17 10:04 85 105/54 (71) 04/29/17 10:01 84 102/25 (50) 04/29/17 09:47 102/54 (70) Objective Remarks GENERAL: Well-nourished, well-developed patient. CARDIOVASCULAR: Regular rate and rhythm without murmurs, gallops, or rubs. RESPIRATORY: Breath sounds equal bilaterally. No accessory muscle use. ABDOMEN/GI: Abdomen soft, non-tender. Fundus: Firm, non-tender at umbilicus. GENITOURINARY: Light to moderate bleeding. EXTREMITIES: No cyanosis or edema, non-tender, without signs of DVT. Medications and IVs Current Medications Medications (Trade) Dose Ordered Sig/Elena Route Start Time Stop Time Status Last Admin (NS Flush) 2 ml BID IV FLUSH 04/29/17 21:00 (NS Flush) 2 ml UNSCH PRN IV FLUSH 04/29/17 18:15 (Tylenol) 650 mg Q4H PRN PO 04/29/17 18:15 (Percocet 5-325 Mg) 1 tab Q4H PRN PO 04/29/17 18:15 (Percocet 5-325 Mg) 2 tab Q4H PRN PO 04/29/17 18:15 04/30/17 08:40 (Americaine 20% Top Spr) 1 spray Q4H PRN TOPICAL 04/29/17 18:15 (Tucks Pads) 1 applic QID PRN TOPICAL 04/29/17 18:15 (Sonia-Colace) 2 tab Q12H PRN PO 04/29/17 18:15 (Ambien) 5 mg HS PRN PO 04/29/17 18:15 (Mag-Al Plus Susp Liq) 15 ml Q8H PRN PO 04/29/17 18:15 (Zofran Odt) 4 mg Q6H PRN PO 04/29/17 18:15 Assessment/Plan Assessment and Plan 36y/o who is PPD#1 s/p . -Continue routine care. -Percocet and Motrin PRN pain. -Encouraged OOB. Advised pelvic rest for 6 wks. -Will need a f/u appt. within 6 wks. -Re: ctrl, she is undecided -D/c in 1-2 more days. dw OB attending Pete Brown MD, R2 Apr 30, 2017 09:30
[2017-04-30 20:30] VITALS: BP 103/66; PULSE 92; RESP 16; TEMP 98.2; O2SAT 98
[2017-05-01] MEDS: oxyCODONE/ACETAMINOPHEN 5 MG/325 MG TAB PO PRN ×3 (01:40→10:01)
[2017-05-01] MEDS ORDERED: SENN1TAB PO (07:51)
[2017-05-01] MEDS ORDERED: OXYC1TAB63 PO (07:51)
[2017-05-01 07:57] VITALS: BP 105/65; PULSE 80; RESP 18; TEMP 98
--- NOTE | 2017-05-01 08:15 | HHI.DCPOC ---
Discharge Care Plan Diagnosis: (1) care following vaginal delivery Report Symptoms to Your Doctor -Temperature above 100.5 degrees -Redness, of incision or excessive or foul smelling drainage -Unusual pain or calf pain -Increased vaginal bleeding -Painful or difficulty urinating -Feelings of extreme sadness or anxiety after 2 weeks Goals to Promote Your Health * To prevent worsening of your condition and complications * To maintain your health at the optimal level Directions to Meet Your Goals Take your medications as prescribed Follow your dietary instruction Follow activity as directed Ensure plenty of rest for recovery Drink fluids for hydration Keep your appointments as scheduled Take your immunizations and boosters as scheduled If your symptoms worsen call your PCP, if no PCP go to Urgent Care Center or Emergency Room Smoking is Dangerous to Your Health. Avoid second hand smoke Call the 24-hour crisis hotline for domestic abuse at Pete Brown MD, R2 May 01, 2017 08:15
--- NOTE | 2017-05-01 08:15 | HHI.OB ---
Subjective Post Day: 2 Remarks day #2. AFVSS overnight. Pain minimal. Decreased lochia. Denies dysuria. No breast tenderness. She is feeding the baby via bottle. Appetite good. No nausea or vomiting. Endorses flatus. Endorses bowel movement. Ambulating well. Denies calf pain, shortness of breath, or cough. Otherwise, she is doing well this morning and has no other complaints. Objective Vitals/I&O Vital Signs Date Time Temp Pulse Resp B/P (MAP) Pulse Ox O2 Delivery O2 Flow Rate FiO2 05/01/17 07:57 80 18 105/65 (78) 05/01/17 07:57 98.0 04/30/17 20:30 98.2 92 16 103/66 (78) 98 Objective Remarks GENERAL: Well-nourished, well-developed patient. CARDIOVASCULAR: Regular rate and rhythm without murmurs, gallops, or rubs. RESPIRATORY: Breath sounds equal bilaterally. No accessory muscle use. ABDOMEN/GI: Abdomen soft, non-tender. Fundus: Firm, non-tender at umbilicus. GENITOURINARY: Light to moderate bleeding. EXTREMITIES: No cyanosis or edema, non-tender, without signs of DVT. Medications and IVs Current Medications Medications (Trade) Dose Ordered Sig/Elena Route Start Time Stop Time Status Last Admin (NS Flush) 2 ml BID IV FLUSH 04/29/17 21:00 (NS Flush) 2 ml UNSCH PRN IV FLUSH 04/29/17 18:15 (Tylenol) 650 mg Q4H PRN PO 04/29/17 18:15 (Percocet 5-325 Mg) 1 tab Q4H PRN PO 04/29/17 18:15 (Percocet 5-325 Mg) 2 tab Q4H PRN PO 04/29/17 18:15 05/01/17 05:40 (Americaine 20% Top Spr) 1 spray Q4H PRN TOPICAL 04/29/17 18:15 (Tucks Pads) 1 applic QID PRN TOPICAL 04/29/17 18:15 (Sonia-Colace) 2 tab Q12H PRN PO 04/29/17 18:15 (Ambien) 5 mg HS PRN PO 04/29/17 18:15 (Mag-Al Plus Susp Liq) 15 ml Q8H PRN PO 04/29/17 18:15 (Zofran Odt) 4 mg Q6H PRN PO 04/29/17 18:15 Assessment/Plan Assessment and Plan 36y/o who is PPD#2 s/p . -Continue routine care. -Percocet and Motrin PRN pain. -Encouraged OOB. Advised pelvic rest for 6 wks. -Will need a f/u appt. within 6 wks. -Re: ctrl, she would like the depo shot -D/c today dw OB attending Pete Brown MD, R2 May 01, 2017 08:14
[2017-05-01] MEDS ORDERED: medroxyPROGESTERone ACETATE SUSP 150 MG/ML SYRINGE IM ONE (09:00)
[2017-05-03 09:39] LABS: BATH SALTS (MDPV) UR NEG (NEG); ECSTASY (MDMA) UR NEG (NEG); GABAPENTIN UR NEG (NEG); HEROIN (6-ACETYLMORPHINE) UR NEG (NEG); HYDROMORPHONE U NEG (NEG); K2 SPICE UR NEG (NEG); OBMETHADONE UR NEG (NEG); PHENCYCLIDINE URINE NEG (NEG)
[2017-05-17] MEDS ORDERED: IBUP800T23 PO (10:18)
== END 2017-05-01 11:19 | disposition home or self-care (01) | DRG 775 ==
LOC: H2EB 07:51 → H1EA 20:54
PROVIDERS: ADMIT Obstetrics & Gynecology; ATTEND Obstetrics & Gynecology
PROC: 10907ZC Drainage of Amniotic Fluid, Therapeutic from Products of Conception, Via Natural or Artificial Opening (ICD-10-PCS; principal; 2017-04-29)
PROC: 10E0XZZ Delivery of Products of Conception, External Approach (ICD-10-PCS; 2017-04-29)
DX: O99.334 Smoking (tobacco) complicating childbirth (principal); O69.81X0 Labor and delivery complicated by cord around neck, without compression, not applicable or unspecified; Z37.0 Single live birth; Z3A.40 40 weeks gestation of pregnancy
CPT/HCPCS: 59025; 80307; 81001; 85025; 86900; 86901; 87641; G0481; J1050; J2590; J3010; J7120

== ENCOUNTER 2017-05-11 00:58 | Inpatient (IN) | payer MEDICAID ==
[~2017-05-11] VITALS: Ht 157.5 cm; Wt 81.3 kg
[2017-05-11] VITALS (8 sets, daily range): BP systolic 117–139; BP diastolic 53–74; PULSE 53–70; RESP 14–20; TEMP 97.6–98.3; O2SAT 94–100
[~2017-05-11 00:58] MED LIST changes: +OXYC1TAB63 PO; -PROM25TA10 PO; +SENN1TAB PO
--- NOTE | 2017-05-11 02:08 | PD ---
HPI Chief Complaint: Pain: Acute or Chronic Time Seen by Provider: 01:46 Travel History International Travel<30 days: No Contact w/Intl Traveler<30days: No Traveled to known affect area: No History of Present Illness HPI The patient is a 36 year old female who presents to the [facility] emergency department with a history of flank pain that began left flank pain that began Ike AM. It is constant. It is a throbbing sensation. It radiates down into the left side of the abdomen. She has had urinary frequency and urgency with urinating over the last 2 days. She has also had diarrhea a few times per day since delivering. She reports that she delivered on April 29. She denies having an epidural. She denies having a catheter placed while she was in the hospital. She reports that this was a term vaginal delivery. She reports that her baby is a 8 lb 6 ounces. She denies breast-feeding. She reports that her lochia is decreasing. She denies having any foul odor to her discharge. On review of systems, the patient denies having any known fevers, recent cough or congestion, neck pain, chest pain, shortness of breath, or neurologic symptoms. [facility] Past Medical History Narrative Medical The patient's past medical history is significant for anxiety, depression, arthritis. She denies any prior history of kidney stones. Arthritis: Yes Bipolar Disorder: Yes Anxiety: Yes Depression: Yes Cancer: No Cardiovascular Problems: No Diabetes: No Headaches: No Psychiatric: Yes (Reports treatment for bipolar disorder since age 13) Schizophrenia: Yes Seizures: No : 8 Para: 5 Past Surgical History Surgical History: No Previous Surgery Social History Alcohol Use: No Tobacco Use: Yes (3-4 cigarretes/day) Substance Use: No Allergies-Medications (Allergen,Severity, Reaction): Coded Allergies: erythromycin base (Unverified Allergy, Severe, Anaphylaxis, 05/11/17) penicillin G (Unverified Allergy, Severe, Anaphylaxis, 05/11/17) naproxen (Unverified Allergy, Intermediate, Hives, 05/11/17) Sulfa (Sulfonamide Antibiotics) (Unverified Allergy, Unknown, 05/11/17) Reported Meds & Prescriptions Reported Meds & Active Scripts Active Oxycodone-Acetaminophen 5-325 mg Tab 1 Tab PO Q4H PRN Senna Plus 8.6-50 mg (Sennosides-Docusate Sodium) 8.6 Mg-50 Mg Tab 2 Tab PO Q12H PRN Narrative Medication motrin Review of Systems Except as stated in HPI: all other systems reviewed are Neg General / Constitutional: No: Fever Eyes: No: Visual changes HENT: No: Headaches Cardiovascular: No: Chest Pain or Discomfort Respiratory: No: Shortness of Breath Gastrointestinal: Positive: Diarrhea, Abdominal Pain, Changes in Bowel Habits, No: Nausea, Vomiting, Indigestion, Loss of Appetite Genitourinary: Positive: Urgency, Frequency, Flank Pain (left ) Musculoskeletal: No: Pain Skin: No Rash Neurologic: No: Weakness Psychiatric: No: Depression Endocrine: No: Polydipsia Hematologic/Lymphatic: No: Easy Bruising Physical Exam Narrative General: The patient is a well-developed well-nourished female, uncomfortable appearing on arrival holding her left flank. Head and Neck exam: Head is normocephalic atraumatic. Eyes: EOMI, pupils are equal round and reactive to light. Nose: Midline septum with pink mucous membranes Mouth: Dentition unremarkable. Moist mucus membranes. Posterior oropharynx is not erythematous. No tonsillar hypertrophy. Uvula midline. Airway patent. Neck: No palpable lymphadenopathy. No nuchal rigidity. No thyromegaly. Cardiovascular: Regular rate and rhythm without murmurs, gallops, or rubs. Lungs: Clear to auscultation bilaterally. No wheezes, rhonchi, or rales. Abdomen: Soft, with reported tenderness on palpation in the left upper and left lower quadrant of the abdomen, no other tenderness on palpation of the other quadrants of the abdomen. No guarding, rebound, or rigidity. Normal bowel sounds are audible. No tenderness on palpation of McBurney's point. Negative Medeiros's sign. Extremities: No clubbing, cyanosis, or edema. 2+ pulses in all 4 extremities. No calf tenderness on palpation. Back: No spinous process tenderness to palpation. Left-sided CVA tenderness is noted on palpation Neurologic Exam: Grossly nonfocal. Skin Exam: No rash noted. Intact skin that is warm and dry. Data Data Last Documented VS Vital Signs Date Time Temp Pulse Resp B/P (MAP) Pulse Ox O2 Delivery O2 Flow Rate FiO2 05/11/17 01:01 98.1 66 16 119/66 (83) 99 Orders Orders Complete Blood Count With Diff (05/11/17 01:48) Comprehensive Metabolic Panel (05/11/17 01:48) C-Reactive Protein (Crp) (05/11/17 01:48) Lipase (05/11/17 01:48) Urinalysis - C+S If Indicated (05/11/17 01:48) Iv Access Insert/Monitor (05/11/17 01:48) Ecg Monitoring (05/11/17 01:48) Oximetry (05/11/17 01:48) Urine Culture (05/11/17 02:00) Ct Abd/Pel W/O Iv Contrast (05/11/17 02:55) Sodium Chlor 0.9% 1000 Ml Inj (Ns 1000 M (05/11/17 03:30) Morphine Inj (Morphine Inj) (05/11/17 03:30) Ondansetron Inj (Zofran Inj) (05/11/17 03:30) Ciprofloxacin 400 Mg Premix (Cipro 400 M (05/11/17 03:45) Ketorolac Inj (Toradol Inj) (05/11/17 04:45) Admit Order (Ed Use Only) (05/11/17 05:32) Labs Laboratory Tests Test 05/11/17 02:00 05/11/17 02:20 05/11/17 02:50 Urine Color YELLOW Urine Turbidity HAZY Urine pH 5.5 Urine Specific [place] 1.031 Urine Protein 30 mg/dL Urine Glucose (UA) NEG mg/dL Urine Ketones NEG mg/dL Urine Occult Blood MOD Urine Nitrite NEG Urine Bilirubin NEG Urine Urobilinogen LESS THAN 2.0 MG/DL Urine Leukocyte Esterase LARGE Urine RBC 76 /hpf Urine WBC /hpf Urine Squamous Epithelial Cells 5 /hpf Urine Transitional Epithelial Cells 2 /hpf Urine Amorphous Sediment RARE Urine Bacteria MANY /hpf Urine Mucus FEW /lpf Microscopic Urinalysis Comment CULTURE INDICATED Blood Urea Nitrogen 17 MG/DL Creatinine 1.07 MG/DL Random Glucose 88 MG/DL Total Protein 6.9 GM/DL Albumin 2.9 GM/DL Calcium Level 8.2 MG/DL Alkaline Phosphatase 137 U/L Aspartate Amino Transf (AST/SGOT) 25 U/L Alanine Aminotransferase (ALT/SGPT) 25 U/L Total Bilirubin 0.4 MG/DL Sodium Level 141 MEQ/L Potassium Level 4.3 MEQ/L Chloride Level 111 MEQ/L Carbon Dioxide Level 20.9 MEQ/L Anion Gap 9 MEQ/L Estimat Glomerular Filtration Rate 57 ML/MIN C-Reactive Protein 1.33 MG/DL Lipase 72 U/L White Blood Count 16.5 TH/MM3 Red Blood Count 4.01 MIL/MM3 Hemoglobin 11.9 GM/DL Hematocrit 36.1 % Mean Corpuscular Volume 90.0 FL Mean Corpuscular Hemoglobin 29.6 PG Mean Corpuscular Hemoglobin Concent 32.9 % Red Cell Distribution Width 13.8 % Platelet Count 490 TH/MM3 Mean Platelet Volume 8.0 FL Neutrophils (%) (Auto) 74.2 % Lymphocytes (%) (Auto) 19.5 % Monocytes (%) (Auto) 4.5 % Eosinophils (%) (Auto) 0.9 % Basophils (%) (Auto) 0.9 % Neutrophils # (Auto) 12.3 TH/MM3 Lymphocytes # (Auto) 3.2 TH/MM3 Monocytes # (Auto) 0.8 TH/MM3 Eosinophils # (Auto) 0.1 TH/MM3 Basophils # (Auto) 0.1 TH/MM3 CBC Comment DIFF FINAL Differential Comment MDM Medical Decision Making Medical Screen Exam Complete: Yes Emergency Medical Condition: Yes Medical Record Reviewed: Yes Interpretation(s) Last Impressions Abdomen/Pelvis CT 05/11/17 0255 Signed Impressions: Service Date/Time: Thursday, May 11, 2017 03:43 - CONCLUSION: 1. 2 mm left ureterovesical junction stone 2. Cholelithiasis Tho Otoole MD Differential Diagnosis Pyelonephritis, versus kidney stone, versus endometritis, versus septic thrombophlebitis Narrative Course During the course of the patients emergency department visit, the patients history, examination, and differential diagnosis were reviewed with the patient. The patient had IV access obtained and blood work sent for analysis. The patient was placed on a respite provider with oximetry and blood pressure monitoring. A CT scan of the abdomen and pelvis was ordered to evaluate for possible underlying kidney stone. The patient was initially provided normal saline IV fluids, morphine for pain, Zofran for nausea. The patient continued to have pain and was given Toradol 15 mg IV. The patients laboratory studies were reviewed and remarkable for a white count of 16.5, hemoglobin 11.9, platelets 490 with 74.2 neutrophils, CMP is remarkable for a chloride of 111, CO2 20.9, creatinine 1.07, calcium 8.2, alkaline phosphatase 137, C-reactive protein 1.33, lipase 72. Urinalysis shows large leukocyte esterase, 76 RBCs, innumerable WBCs, many bacteria, culture indicated. The patient was given Cipro 400 mg IV for antibiotic coverage for a urinary tract infection. Radiology studies were reviewed and remarkable for a CT scan of the abdomen and pelvis that shows a 2 mm left UVJ stone, cholelithiasis, no other acute abnormality. Given the patient's signs of pyelonephritis associated with a UVJ stone, and intractable pain, the patient will be admitted to the hospital for continued IV fluids. The patients results were discussed with the patient, including the plan of care. I explained that further testing and/ or monitoring is indicated based on the patients history, examination, and/ or laboratory findings. Therefore, I recommended admission for additional evaluation. The patient expressed understanding and was agreeable with this plan. The patient was admitted to the hospital in stable condition and [facility] Sepsis Criteria SIRS Criteria (2 or more): WBC > 80295, < 4000 or > 10% bands Physician Communication Physician Communication The patient's case was discussed with Dr. Lopez who did agree to admit the patient for further evaluation and treatment at this time. Diagnosis Primary Impression: Pyelonephritis Additional Impression: Left ureteral calculus Admitting Information Admitting Physician Requests: Admit Gabrielle Vazquez MD May 11, 2017 02:07
[2017-05-11 02:38] LABS: BACTERIA, URINE MANY /hpf; BLOOD, URINE MOD (NEG); COMMENT (UR) CULTURE INDICATED; CULTURE IF INDICATED CULTURE INDICATED; GLUCOSE,URINE NEG (NEG); KETONE, URINE NEG (NEG); MUCUS URINE FEW /lpf (OCC); NITRITE,URINE NEG (NEG); PH, URINE 5.5 (5.0-8.5); SQUAMOUS EPITHELIAL CELL URINE 5 /hpf (0-5); TRANSITIONAL EPI CELLS, URINE 2 /hpf; URINE COLOR YELLOW (YELLW/STRAW)
[2017-05-11 02:53] LABS: ALKALINE PHOSPHATASE 137 U/L (45-117); TOTAL BILIRUBIN ADULT 0.4 MG/DL (0.2-1.0)
[2017-05-11 03:05] LABS: ALT (GPT) 25 U/L (10-53); ANION GAP 9 MEQ/L (5-15); AST (GOT) 25 U/L (15-37); BICARBONATE 20.9 MEQ/L (21.0-32.0); BLOOD UREA NITROGEN 17 MG/DL (7-18); CHLORIDE 111 MEQ/L (98-107); GLOMERULAR FILTRATION RATE 57 ML/MIN (>89); POTASSIUM 4.3 MEQ/L (3.5-5.1); SODIUM (NA) 141 MEQ/L (136-145)
[2017-05-11 03:18] LABS: AUTOMATED NEUTROPHIL # 12.3 TH/MM3 (1.8-7.7); BASOPHIL # 0.1 TH/MM3 (0-0.2); BASOPHIL % 0.9 % (0.0-2.0); EOSINOPHIL # 0.1 TH/MM3 (0-0.4); EOSINOPHIL % 0.9 % (0.0-4.0); HEMATOCRIT 36.1 % (35.0-46.0); HEMO FLAGS DIFF FINAL; LYMPH % 19.5 % (9.0-44.0); LYMPHOCYTE # 3.2 TH/MM3 (1.0-4.8); MEAN CORPUSCULAR HEMOGLOBIN 29.6 PG (27.0-34.0); MEAN CORPUSCULAR HGB CONC 32.9 % (32.0-36.0); MONO % 4.5 % (0.0-8.0); NEUT % 74.2 % (16.0-70.0); PLATELET COUNT 490 TH/MM3 (150-450); RED BLOOD COUNT 4.01 MIL/MM3 (4.00-5.30); RED CELL DISTRIBUTION WIDTH 13.8 % (11.6-17.2); WHITE BLOOD COUNT 16.5 TH/MM3 (4.0-11.0)
[2017-05-11] MEDS ORDERED: SODIUM CHLOR 0.9% 1000 ML INJ 1,000 ML IV ONE (03:30)
[2017-05-11] MEDS ORDERED: ONDANSETRON HCL 4 MG/2 ML VIAL IV PUSH ONE (03:30)
[2017-05-11] MEDS ORDERED: MORPHINE SULFATE 4 MG/ML INJ IV PUSH ONE (03:30)
[2017-05-11] MEDS ORDERED: CIPROFLOXACIN 400 MG PREMIX 200 ML IV ONE (03:45)
--- NOTE | 2017-05-11 04:39 | RADRPT ---
EXAM DATE/TIME: 05/11/2017 03:43 [place] COMPARISON: No previous studies available for comparison. INDICATIONS : Left flank and pelvic pain, post . ORAL CONTRAST: No oral contrast ingested. RADIATION DOSE: 12.71 CTDIvol (mGy) MEDICAL HISTORY : None SURGICAL HISTORY : Back surgery. ENCOUNTER: Initial ACUITY: 1 day PAIN SCALE: 6/10 LOCATION: Left flank TECHNIQUE: Volumetric scanning of the abdomen and pelvis was performed. Using automated exposure control and ad justment of the mA and/or kV according to patient size, radiation dose was kept as low as reasonably achievable to obtain optimal diagnostic quality images. DICOM format image data is available electro nically for review and comparison. FINDINGS: The visualized portion of the liver and spleen are normal. There is a single stone within the gallbla dder without wall thickening or pericholecystic fluid measuring 4 mm. The pancreas demonstrates no ev idence of mass and there is no dilatation of the pancreatic duct. The adrenal glands are unremarkable . The right kidney is unremarkable. There is a 2 mm left ureterovesical junction stone with mild hydr onephrosis. There is an enlarged uterus. No free fluid is identified. CONCLUSION: 1. 2 mm left ureterovesical junction stone 2. Cholelithiasis Tho Otoole MD on May 11, 2017 at 4:35 Board Certified Radiologist. This report was verified electronically.
[2017-05-11] MEDS ORDERED: KETOROLAC TROMETHAMINE 30 MG/ML (IVP) VIAL IV PUSH ONE (04:45)
[2017-05-11] MEDS ORDERED: NALOXONE HCL 0.4 MG/ML AMP IV PUSH PRN ×2 (06:00→18:30)
[2017-05-11] MEDS ORDERED: SODIUM CHLORIDE 0.9% FLUSH 10 ML FLUSH IV FLUSH PRN (06:00)
[2017-05-11] MEDS: SODIUM CHLOR 0.9% 1000 ML INJ 1,000 ML IV SCH ×3 (06:45→23:50)
[2017-05-11] MEDS: HYDROmorphone HCL PF 1 MG/ML VIAL IV PUSH PRN ×2 (06:45→10:47)
--- NOTE | 2017-05-11 08:52 | PD.PN.STU ---
Subjective Remarks CC: low back pain HPI: Pt is a 36yo female with a h/o arthritis, depression, anxiety, schizophrenia and bipolar disorder who presented in the ER early this morning for severe low back pain. Pt reports left-sided back pain starting a couple of days ago that was relieved by motrin. The pain worsened through Wednesday and was associated with increased urinary frequency, Lt abdominal pain and pressure, nausea, and fever/chills. She recently had a full term vaginal delivery on 04/29 with no epidural and reports that the pelvic pressure she is experiencing feels worse than when she felt post-. She denies experiencing these symptoms in the past and any h/o kidney stones. She reports h /o of UTI's and reports that "this pain feels different from a UTI". She rates the pain at a 7/10 currently, but at its worst a 10/10 and radiates from the back to the front of the abdomen mostly on the left side. She describes the pain as dull, constant, and throbbing. Aggravating factors include palpation and increased pressure. Alleviating factors include standing up. Reports " seeing spots" due to the pain, pleuritic chest pain and mild SOB she attributes to the back pain, abdominal pain, leg swelling, leg pain on the shins, increased urinary frequency, dark brown urine, nausea, fever, chills, diarrhea ( >5 BM/day), increased straining for a BM, blood in the stools, decreased appetite and oral intake, and inability to sleep due to the pain. She reports continued lochia but is decreasing. Denies MOORE, lightheadedness, cough, vomiting , extremity weakness, paresthesias, rash, bruising, and malodorous vaginal discharge. PMH: arthritis, depression, anxiety, schizophrenia, bipolar disorder PSH: no prior hospitalizations other than during labor and delivery. FH: mother had ovarian cancer with brain mets and at 46yo. father from a car accident when pt was a year old. 2 brothers are living and healthy. denies family history of DM, HTN, or CAD. SH: denies alcohol and illegal drug use. reports smoking 2-3 cigarettes/day Allergies: penicillin, azithromycin, and sulfas- reports anaphylaxis when she was a child, never taken them since. naproxen- breaks out in hives Objective Vitals Vital Signs Date Time Temp Pulse Resp B/P (MAP) Pulse Ox O2 Delivery O2 Flow Rate FiO2 05/11/17 06:29 05/11/17 06:07 70 14 139/74 (95) 99 Room Air 05/11/17 01:01 98.1 66 16 119/66 (83) 99 I/O 05/10/17 05/10/17 05/10/17 05/11/17 05/11/17 05/11/17 07:00 15:00 23:00 07:00 15:00 23:00 Intake Total 1200 ml Balance 1200 ml Intake IV Total 1200 ml Result Diagram: 05/11/17 0250 05/11/17 0220 Other Results Laboratory Tests Test 05/11/17 02:00 05/11/17 02:20 05/11/17 02:50 Urine Turbidity HAZY (CLEAR) Urine Protein 30 mg/dL (NEG-TRACE) Urine Occult Blood MOD (NEG) Urine Leukocyte Esterase LARGE (NEG) Urine RBC 76 /hpf (0-3) Urine Bacteria MANY /hpf (NONE) Urine Mucus FEW /lpf (OCC) Creatinine 1.07 MG/DL (0.50-1.00) Albumin 2.9 GM/DL (3.4-5.0) Calcium Level 8.2 MG/DL (8.5-10.1) Alkaline Phosphatase 137 U/L (45-117) Chloride Level 111 MEQ/L (98-107) Carbon Dioxide Level 20.9 MEQ/L (21.0-32.0) Estimat Glomerular Filtration Rate 57 ML/MIN (>89) C-Reactive Protein 1.33 MG/DL (0.00-0.30) Lipase 72 U/L (73-393) White Blood Count 16.5 TH/MM3 (4.0-11.0) Platelet Count 490 TH/MM3 (150-450) Neutrophils (%) (Auto) 74.2 % (16.0-70.0) Neutrophils # (Auto) 12.3 TH/MM3 (1.8-7.7) Imaging Last Impressions Abdomen/Pelvis CT 05/11/17 0258 Signed Impressions: Service Date/Time: Thursday, May 11, 2017 03:43 - CONCLUSION: 1. 2 mm left ureterovesical junction stone 2. Cholelithiasis Tho Otoole MD Objective Remarks GENERAL: pleasant, WDWN, tired-appearing obese female who was in NAD SKIN: Warm and dry. HEAD: Atraumatic. Normocephalic. EYES: Pupils equal and round. EOMI. No scleral icterus. No injection or drainage. ENT: No nasal bleeding or discharge. Mucous membranes pink and moist. NECK: Trachea midline. No JVD. CARDIOVASCULAR: Regular rate and rhythm. S1 and S2 heard, no murmurs, gallops, rubs. RESPIRATORY: No accessory muscle use. Clear to auscultation. Breath sounds equal bilaterally. GASTROINTESTINAL: Bowel sounds heard in all 4 quadrants. No erythema or ecchymoses. Abdomen soft, nondistended, but tender to palpation that is worse on the LLQ. No rebound or rigidity. No masses or hernias appreciated. Mild guarding when palpated on the left side. Hepatic and splenic margins not palpable. Negative Medeiros's sign. MUSCULOSKELETAL: Able to move all 4 extremities with no difficulty. No obvious deformities. No clubbing or cyanosis. Mild LE edema bilaterally. Anterior shins and right calf mildly tender to palpation. Dorsalis pedis and posterior tibial arteries 2+ bilaterally. NEUROLOGICAL: Awake, alert, and orientedx4 to self, place, time, and situation. No obvious cranial nerve deficits. Motor grossly within normal limits. Five out of 5 muscle strength in the arms and legs. Normal speech. PSYCHIATRIC: Appropriate mood and affect; insight and judgment normal. Medications and IVs Reported Meds & Active Scripts Active Oxycodone-Acetaminophen 5-325 mg Tab 1 Tab PO Q4H PRN Senna Plus 8.6-50 mg (Sennosides-Docusate Sodium) 8.6 Mg-50 Mg Tab 2 Tab PO Q12H PRN Current Medications Medications (Trade) Dose Ordered Sig/Elena Route Start Time Stop Time Status Last Admin (NS Flush) 2 ml UNSCH PRN IV FLUSH 05/11/17 06:00 (NS Flush) 2 ml BID IV FLUSH 05/11/17 09:00 (Narcan Inj) 0.4 mg UNSCH PRN IV PUSH 05/11/17 06:00 Ciprofloxacin/ Dextrose 200 ml @ 200 mls/hr Q12H IV 05/11/17 16:00 (Dilaudid Pf Inj) 0.2 mg Q4H PRN IV PUSH 05/11/17 06:00 05/11/17 06:45 Sodium Chloride 1,000 ml @ 125 mls/hr Q8H IV 05/11/17 06:00 05/11/17 06:45 A/P Assessment and Plan Pyelonephritis - CT abdomen/pelvis showed 2 mm left ureterovesical junction stone with mild hydronephrosis and no free fluid cont IVF cont ciprofloxacin cont pain management urine culture pending Urology consulted Cholelithiasis- asymptomatic CT abdomen/pelvis showed a single 4mm stone within the gallbladder without wall thickening or pericholecystic fluid Leukocytosis WBC 16.5 cont IVF and cipro monitor labs Pleuritic Chest Pain cont EKG monitoring Nausea on zofran Diarrhea cont IVF monitor labs Tobacco Use- counseled and discussed tobacco cessation Discussed at length with Miss Penny Del Cid MS III. Agree with above Penny Del Cid M3 May 11, 2017 08:52 Riddhi Velez MD May 11, 2017 16:48
[2017-05-11] MEDS: SODIUM CHLORIDE 0.9% FLUSH 10 ML FLUSH IV FLUSH SCH ×2 (09:00→21:00)
[2017-05-11] MEDS ORDERED: HYDROmorphone HCL PF 0.5 MG/0.5 ML SYRINGE IV PRN (11:45)
[2017-05-11] MEDS ORDERED: oxyCODONE/ACETAMINOPHEN 5 MG/325 MG TAB PO PRN (14:00)
--- NOTE | 2017-05-11 14:00 | PD.CONS ---
HPI Service Urology Consult Requested By Dr. Velez Reason for Consult Left ureteral calculus Primary Care Physician Unknown Diagnosis: History of Present Illness 36-year-old female with no prior history nephrolithiasis and who recently had a normal spontaneous vaginal delivery on April 29 of this year who presented to the emergency room with a 24 hour history of left flank pain that has gotten progressively worse. The patient also reports lower urinary tract symptoms of frequency and urgency over the past 48 hours. Workup in the emergency room included a CT scan stone protocol that demonstrated a 2 mm left distal ureteral calculus. Patient was admitted for IV hydration, analgesic support and a urology consult was placed. At the time of consultation, the patient was resting comfortably with her pain well controlled. She denies fever or shaking chills. She denies any previous urologic history. I reviewed the actual CT scan images and concur with the radiologist impression. Review of Systems Constitutional: DENIES: Fever, Chills Gastrointestinal: COMPLAINS OF: Abdominal pain (left lower abdomen) Genitourinary: COMPLAINS OF: Urinary frequency, Urgency, DENIES: Hematuria Musculoskeletal: COMPLAINS OF: Back pain (left flank) Except as stated in HPI: all other systems reviewed are Neg Past Family Social History Past Medical History Anxiety/depression Arthritis Bipolar disorder Past Surgical History Denies prior major surgery Status post recent full-term normal spontaneous vaginal delivery Reported Medications Refer to EMR Allergies: Coded Allergies: erythromycin base (Unverified Allergy, Severe, Anaphylaxis, 05/11/17) penicillin G (Unverified Allergy, Severe, Anaphylaxis, 05/11/17) naproxen (Unverified Allergy, Intermediate, Hives, 05/11/17) Sulfa (Sulfonamide Antibiotics) (Unverified Allergy, Unknown, 05/11/17) Active Ordered Medications Refer to EMR Family History Reviewed and noncontributory Social History Smoker of 3-4 cigarettes per day Denies history of alcohol or intravenous drug abuse Physical Exam Vital Signs Date Time Temp Pulse Resp B/P (MAP) Pulse Ox O2 Delivery O2 Flow Rate FiO2 05/11/17 12:37 53 05/11/17 12:00 98.2 66 20 117/53 (74) 97 05/11/17 08:00 98.1 59 20 128/61 (83) 97 05/11/17 06:29 05/11/17 06:07 70 14 139/74 (95) 99 Room Air 05/11/17 01:01 98.1 66 16 119/66 (83) 99 Physical Exam GENERAL: This is a well-nourished, well-developed patient, in no apparent distress. SKIN: No rashes, ecchymoses or lesions. Cool and dry. HEAD: Atraumatic. Normocephalic. No temporal or scalp tenderness. EYES: Pupils equal round and reactive. Extraocular motions intact. No scleral icterus. No injection or drainage. ENT: Nose without bleeding, purulent drainage or septal hematoma. Throat without erythema, tonsillar hypertrophy or exudate. Uvula midline. Airway patent. NECK: Trachea midline. No JVD or lymphadenopathy. Supple, nontender, no meningeal signs. CARDIOVASCULAR: Regular rate and rhythm without murmurs, gallops, or rubs. RESPIRATORY: Clear to auscultation. Breath sounds equal bilaterally. No wheezes , rales, or rhonchi. GASTROINTESTINAL: Abdomen soft, non-tender, nondistended. No hepato-splenomegaly , or palpable masses. No guarding. GENITOURINARY: No CVA tenderness. Bladder not distended MUSCULOSKELETAL: Extremities without clubbing, cyanosis, or edema. No joint tenderness, effusion, or edema noted. No calf tenderness. Negative Homans sign bilaterally. NEUROLOGICAL: Awake and alert. Cranial nerves II through XII intact. Motor and sensory grossly within normal limits. Five out of 5 muscle strength in all muscle groups. Normal speech. Lab results reviewed: Yes Laboratory Tests Test 05/11/17 02:00 05/11/17 02:20 05/11/17 02:50 Urine Color YELLOW Urine Turbidity HAZY Urine pH 5.5 Urine Specific [place] 1.031 Urine Protein 30 Urine Glucose (UA) NEG Urine Ketones NEG Urine Occult Blood MOD Urine Nitrite NEG Urine Bilirubin NEG Urine Urobilinogen LESS THAN 2.0 Urine Leukocyte Esterase LARGE Urine RBC 76 Urine WBC Urine Squamous Epithelial Cells 5 Urine Transitional Epithelial Cells 2 Urine Amorphous Sediment RARE Urine Bacteria MANY Urine Mucus FEW Microscopic Urinalysis Comment CULTURE INDICATED Blood Urea Nitrogen 17 Creatinine 1.07 Random Glucose 88 Total Protein 6.9 Albumin 2.9 Calcium Level 8.2 Alkaline Phosphatase 137 Aspartate Amino Transf (AST/SGOT) 25 Alanine Aminotransferase (ALT/SGPT) 25 Total Bilirubin 0.4 Sodium Level 141 Potassium Level 4.3 Chloride Level 111 Carbon Dioxide Level 20.9 Anion Gap 9 Estimat Glomerular Filtration Rate 57 C-Reactive Protein 1.33 Lipase 72 White Blood Count 16.5 Red Blood Count 4.01 Hemoglobin 11.9 Hematocrit 36.1 Mean Corpuscular Volume 90.0 Mean Corpuscular Hemoglobin 29.6 Mean Corpuscular Hemoglobin Concent 32.9 Red Cell Distribution Width 13.8 Platelet Count 490 Mean Platelet Volume 8.0 Neutrophils (%) (Auto) 74.2 Lymphocytes (%) (Auto) 19.5 Monocytes (%) (Auto) 4.5 Eosinophils (%) (Auto) 0.9 Basophils (%) (Auto) 0.9 Neutrophils # (Auto) 12.3 Lymphocytes # (Auto) 3.2 Monocytes # (Auto) 0.8 Eosinophils # (Auto) 0.1 Basophils # (Auto) 0.1 CBC Comment DIFF FINAL Differential Comment Date/Time Source Procedure Growth Status 05/11/17 02:00 Urine Random Urine Urine Culture Pending Worksheet Result Diagram: 05/11/17 0250 05/11/17 0220 Personally reviewed images: Yes Imaging Last Impressions Abdomen/Pelvis CT 05/11/17 0255 Signed Impressions: Service Date/Time: Thursday, May 11, 2017 03:43 - CONCLUSION: 1. 2 mm left ureterovesical junction stone 2. Cholelithiasis hTo Otoole MD Assessment and Plan Assessment and Plan Urologic impression: #1 left flank pain related to a 2 mm left distal ureteral calculus #2 due to size location of the stone there is a good chance that it will pass spontaneously Recommendations: #1 IV hydration #2 analgesic support #3 strain all urine #4 regular diet #5 discharged home when stone passes or when pain well managed with oral meds Davion Francis MD May 11, 2017 13:59
[2017-05-11] MEDS: CIPROFLOXACIN 400 MG PREMIX 200 ML IV SCH (16:00)
--- NOTE | 2017-05-11 16:41 | HHI.HP ---
HPI Service [facility] Primary Care Physician Unknown Admission Diagnosis Pyleonephritis, left ureteral stone Diagnoses: Chief Complaint: pain Travel History International Travel<30 Days: No Contact w/Intl Traveler <30 Da: No Traveled to Known Affected Are: No History of Present Illness 36yo female with a h/o arthritis, depression, anxiety, schizophrenia and bipolar disorder who presented in the ER early this morning for severe low back pain. Pt reports left-sided back pain starting a couple of days ago that was relieved by motrin. The pain worsened through Wednesday and was associated with increased urinary frequency, Lt abdominal pain and pressure, nausea, and fever/chills. She recently had a full term vaginal delivery on 04/29 with no epidural and reports that the pelvic pressure she is experiencing feels worse than when she felt post-. She denies experiencing these symptoms in the past and any h/o kidney stones. She reports h/o of UTI's and reports that "this pain feels different from a UTI". She rates the pain at a 7/10 currently, but at its worst a 10/10 and radiates from the back to the front of the abdomen mostly on the left side. She describes the pain as dull, constant, and throbbing. Aggravating factors include palpation and increased pressure. Alleviating factors include standing up. Reports "seeing spots" due to the pain , pleuritic chest pain and mild SOB she attributes to the back pain, abdominal pain, leg swelling, leg pain on the shins, increased urinary frequency, dark brown urine, nausea, fever, chills, diarrhea (>5 BM/day), increased straining for a BM, blood in the stools, decreased appetite and oral intake, and inability to sleep due to the pain. She reports continued lochia but is decreasing. Denies MOORE, lightheadedness, cough, vomiting, extremity weakness, paresthesias, rash, bruising, and malodorous vaginal discharge. Review of Systems Except as stated in HPI: all other systems reviewed are Neg Past Family Social History Past Medical History arthritis, depression, anxiety, schizophrenia, bipolar disorder Past Surgical History no prior hospitalizations other than during labor and delivery. Reported Medications Reported Meds & Active Scripts Active Oxycodone-Acetaminophen 5-325 mg Tab 1 Tab PO Q4H PRN Senna Plus 8.6-50 mg (Sennosides-Docusate Sodium) 8.6 Mg-50 Mg Tab 2 Tab PO Q12H PRN Allergies: Coded Allergies: erythromycin base (Unverified Allergy, Severe, Anaphylaxis, 05/11/17) penicillin G (Unverified Allergy, Severe, Anaphylaxis, 05/11/17) naproxen (Unverified Allergy, Intermediate, Hives, 05/11/17) Sulfa (Sulfonamide Antibiotics) (Unverified Allergy, Unknown, 05/11/17) Family History mother had ovarian cancer with brain mets and at 46yo. father from a car accident when pt was a year old. 2 brothers are living and healthy. denies family history of DM, HTN, or CAD. Social History denies alcohol and illegal drug use. reports smoking 2-3 cigarettes/day Physical Exam Vital Signs Vital Signs Date Time Temp Pulse Resp B/P (MAP) Pulse Ox O2 Delivery O2 Flow Rate FiO2 05/11/17 12:37 53 05/11/17 12:00 98.2 66 20 117/53 (74) 97 05/11/17 08:00 98.1 59 20 128/61 (83) 97 05/11/17 06:29 05/11/17 06:07 70 14 139/74 (95) 99 Room Air 05/11/17 01:01 98.1 66 16 119/66 (83) 99 Physical Exam GENERAL: This is a well-nourished, well-developed patient, in no apparent distress. SKIN: No rashes, ecchymoses or lesions. Cool and dry. HEAD: Atraumatic. Normocephalic. No temporal or scalp tenderness. EYES: Pupils equal round and reactive. Extraocular motions intact. No scleral icterus. No injection or drainage. ENT: Nose without bleeding, purulent drainage or septal hematoma. Throat without erythema, tonsillar hypertrophy or exudate. Uvula midline. Airway patent. NECK: Trachea midline. No JVD or lymphadenopathy. Supple, nontender, no meningeal signs. CARDIOVASCULAR: Regular rate and rhythm without murmurs, gallops, or rubs. RESPIRATORY: Clear to auscultation. Breath sounds equal bilaterally. No wheezes , rales, or rhonchi. GASTROINTESTINAL: Bowel sounds heard in all 4 quadrants. No erythema or ecchymoses. Abdomen soft, nondistended, but tender to palpation that is worse on the LLQ. No rebound or rigidity. No masses or hernias appreciated. Mild guarding when palpated on the left side. Hepatic and splenic margins not palpable. Negative Medeiros's sign. MUSCULOSKELETAL: Able to move all 4 extremities with no difficulty. No obvious deformities. No clubbing or cyanosis. Mild LE edema bilaterally. Anterior shins and right calf mildly tender to palpation. Dorsalis pedis and posterior tibial arteries 2+ bilaterally. NEUROLOGICAL: Awake and alert. Cranial nerves II through XII intact. Motor and sensory grossly within normal limits. Five out of 5 muscle strength in all muscle groups. Normal speech. Laboratory Laboratory Tests Test 05/11/17 02:00 05/11/17 02:20 05/11/17 02:50 Urine Color YELLOW Urine Turbidity HAZY Urine pH 5.5 Urine Specific [place] 1.031 Urine Protein 30 Urine Glucose (UA) NEG Urine Ketones NEG Urine Occult Blood MOD Urine Nitrite NEG Urine Bilirubin NEG Urine Urobilinogen LESS THAN 2.0 Urine Leukocyte Esterase LARGE Urine RBC 76 Urine WBC Urine Squamous Epithelial Cells 5 Urine Transitional Epithelial Cells 2 Urine Amorphous Sediment RARE Urine Bacteria MANY Urine Mucus FEW Microscopic Urinalysis Comment CULTURE INDICATED Blood Urea Nitrogen 17 Creatinine 1.07 Random Glucose 88 Total Protein 6.9 Albumin 2.9 Calcium Level 8.2 Alkaline Phosphatase 137 Aspartate Amino Transf (AST/SGOT) 25 Alanine Aminotransferase (ALT/SGPT) 25 Total Bilirubin 0.4 Sodium Level 141 Potassium Level 4.3 Chloride Level 111 Carbon Dioxide Level 20.9 Anion Gap 9 Estimat Glomerular Filtration Rate 57 C-Reactive Protein 1.33 Lipase 72 White Blood Count 16.5 Red Blood Count 4.01 Hemoglobin 11.9 Hematocrit 36.1 Mean Corpuscular Volume 90.0 Mean Corpuscular Hemoglobin 29.6 Mean Corpuscular Hemoglobin Concent 32.9 Red Cell Distribution Width 13.8 Platelet Count 490 Mean Platelet Volume 8.0 Neutrophils (%) (Auto) 74.2 Lymphocytes (%) (Auto) 19.5 Monocytes (%) (Auto) 4.5 Eosinophils (%) (Auto) 0.9 Basophils (%) (Auto) 0.9 Neutrophils # (Auto) 12.3 Lymphocytes # (Auto) 3.2 Monocytes # (Auto) 0.8 Eosinophils # (Auto) 0.1 Basophils # (Auto) 0.1 CBC Comment DIFF FINAL Differential Comment Date/Time Source Procedure Growth Status 05/11/17 02:00 Urine Random Urine Urine Culture Pending Worksheet Result Diagram: 05/11/1724905/11/17219 Imaging Last Impressions Abdomen/Pelvis CT 05/11/17254 Signed Impressions: Service Date/Time: Thursday, May 11, 2017 03:43 - CONCLUSION: 1. 2 mm left ureterovesical junction stone 2. Cholelithiasis MD Canelo Vera VTE Risk Assessment Canelo VTE Risk Assessment: No/Low Risk (score <= 1) Caprini Risk Assessment Model Point Value = 1 Point Value = 2 Point Value = 3 Point Value = 5 Age 41-60 Minor surgery BMI > 25 kg/m2 Swollen legs Varicose veins or History of unexplained or recurrent spontaneous Oral contraceptives or hormone replacement Sepsis (< 1 month) Serious lung disease, including pneumonia (< 1 month) Abnormal pulmonary function Acute myocardial infarction Congestive heart failure (< 1 month) History of inflammatory bowel disease Medical patient at bed rest Age 61-74 Arthroscopic surgery Major open surgery (> 45 min) Laparoscopic surgery (> 45 min) Malignancy Confined to bed (> 72 hours) Immobilizing plaster cast Central venous access Age >= 75 History of VTE Family history of VTE Factor V Leiden Prothrombin [id number] Lupus anticoagulant Anticardiolipin antibodies Elevated serum homocysteine Heparin-induced thrombocytopenia Other congenital or acquired thrombophilia Stroke (< 1 month) Elective arthroplasty Hip, pelvis, or leg fracture Acute spinal cord injury (< 1 month) Prophylaxis Regimen Total Risk Factor Score Risk Level Prophylaxis Regimen 0-1 Low Early ambulation 2 Moderate Order ONE of the following: *Sequential Compression Device (SCD) *Heparin 5000 units SQ BID 3-4 Higher Order ONE of the following medications: *Heparin 5000 units SQ TID *Enoxaparin/Lovenox 40 mg SQ daily (WT < 150 kg, CrCl > 30 mL/min) *Enoxaparin/Lovenox 30 mg SQ daily (WT < 150 kg, CrCl > 10-29 mL/min) *Enoxaparin/Lovenox 30 mg SQ BID (WT < 150 kg, CrCl > 30 mL/min) AND/OR *Sequential Compression Device (SCD) 5 or more Highest Order ONE of the following medications: *Heparin 5000 units SQ TID (Preferred with Epidurals) *Enoxaparin/Lovenox 40 mg SQ daily (WT < 150 kg, CrCl > 30 mL/min) *Enoxaparin/Lovenox 30 mg SQ daily (WT < 150 kg, CrCl > 10-29 mL/min) *Enoxaparin/Lovenox 30 mg SQ BID (WT < 150 kg, CrCl > 30 mL/min) AND *Sequential Compression Device (SCD) Assessment and Plan Assessment and Plan Pyelonephritis - CT abdomen/pelvis showed 2 mm left ureterovesical junction stone with mild hydronephrosis and no free fluid cont IVF cont ciprofloxacin cont pain management urine culture pending Urology consulted Cholelithiasis- asymptomatic CT abdomen/pelvis showed a single 4mm stone within the gallbladder without wall thickening or pericholecystic fluid Leukocytosis WBC 16.5 cont IVF and cipro monitor labs Pleuritic Chest Pain cont EKG monitoring Nausea on zofran Diarrhea cont IVF monitor labs Tobacco Use- counseled and discussed tobacco cessation DVT ppx ambulation DC plan Poss DC tomorrow if improves on po antibiotic and pain meds Discussed Condition With patient, nurse, family at bedside Physician Certification 2 Midnight Certification Type: Admission for Inpatient Services Order for Inpatient Services The services are ordered in accordance with Medicare regulations or non- Medicare payer requirements, as applicable. In the case of services not specified as inpatient-only, they are appropriately provided as inpatient services in accordance with the 2-midnight benchmark. Estimated LOS (days): 3 days is the estimated time the patient will need to remain in the hospital, assuming treatment plan goals are met and no additional complications. Post-Hospital Plan: Home Riddhi Velez MD May 11, 2017 16:41
[2017-05-11] MEDS ORDERED: HYDROmorphone HCL PF 1 MG/ML VIAL IV PUSH PRN (18:30)
[2017-05-11] MEDS: oxyCODONE/ACETAMINOPHEN 5 MG/325 MG TAB PO PRN (18:45)
[2017-05-12] VITALS: BP 111/56; PULSE 61; RESP 18; TEMP 98; O2SAT 96
[2017-05-12] MEDS: oxyCODONE/ACETAMINOPHEN 5 MG/325 MG TAB PO PRN ×2 (01:00→07:53)
[2017-05-12] MEDS: CIPROFLOXACIN 400 MG PREMIX 200 ML IV SCH (03:01)
[2017-05-12 04:00] VITALS: BP 114/57; PULSE 63; RESP 18; TEMP 98.2; O2SAT 97
[2017-05-12 07:17] VITALS: PULSE 58
[2017-05-12 08:37] VITALS: BP 108/59; PULSE 61; RESP 20; TEMP 98.4; O2SAT 98
[2017-05-12] MEDS: SODIUM CHLORIDE 0.9% FLUSH 10 ML FLUSH IV FLUSH SCH (09:00)
[2017-05-12] MEDS ORDERED: SENN1TAB PO (10:05)
[2017-05-12] MEDS ORDERED: OXYC1TAB63 PO (10:05)
[2017-05-12] MEDS ORDERED: CIPR500T2 PO (10:05)
--- NOTE | 2017-05-12 10:05 | HHI.DCPOC ---
Discharge Care Plan Goals to Promote Your Health * To prevent worsening of your condition and complications * To maintain your health at the optimal level Directions to Meet Your Goals Take your medications as prescribed Follow your dietary instruction Follow activity as directed Keep your appointments as scheduled Take your immunizations and boosters as scheduled If your symptoms worsen call your PCP, if no PCP go to Urgent Care Center or Emergency Room Smoking is Dangerous to Your Health. Avoid second hand smoke Call the 24-hour hour crisis hotline for domestic abuse at Riddhi Velez MD May 12, 2017 10:05
[2017-05-12 10:45] LABS: AUTOMATED NEUTROPHIL # 8.1 TH/MM3 (1.8-7.7); BASOPHIL # 0.1 TH/MM3 (0-0.2); BASOPHIL % 0.4 % (0.0-2.0); EOSINOPHIL # 0.2 TH/MM3 (0-0.4); EOSINOPHIL % 1.3 % (0.0-4.0); HEMATOCRIT 36.1 % (35.0-46.0); HEMO FLAGS DIFF FINAL; LYMPHOCYTE # 3.9 TH/MM3 (1.0-4.8); MEAN CELL VOLUME 90.9 FL (80.0-100.0); MONO % 3.6 % (0.0-8.0); NEUT % 63.7 % (16.0-70.0); PLATELET COUNT 483 TH/MM3 (150-450); RED BLOOD COUNT 3.97 MIL/MM3 (4.00-5.30); RED CELL DISTRIBUTION WIDTH 13.8 % (11.6-17.2); WHITE BLOOD COUNT 12.7 TH/MM3 (4.0-11.0)
[2017-05-12 11:15] LABS: BICARBONATE 19.9 MEQ/L (21.0-32.0); POTASSIUM 3.4 MEQ/L (3.5-5.1)
[2017-05-17] MEDS ORDERED: IBUP800T23 PO (10:18)
== END 2017-05-12 11:15 | disposition home or self-care (01) | DRG 690 ==
LOC: NEPC 00:58 → NEDA 05:35 → N05A 07:06
PROVIDERS: ADMIT Hospitalist; ATTEND Hospitalist
DX: N13.6 Pyonephrosis (principal); N20.1 Calculus of ureter; M54.5 Low back pain; M19.90 Unspecified osteoarthritis, unspecified site; F20.9 Schizophrenia, unspecified; F31.9 Bipolar disorder, unspecified; G47.00 Insomnia, unspecified; Z72.0 Tobacco use; Z80.41 Family history of malignant neoplasm of ovary
CPT/HCPCS: 74176; 80048; 80053; 81001; 83690; 85025; 86140; 87077; 87086; 87186; 94150; 96365; 96375; J1170; J0744; J1885; J2270; J2405; J7030

== ENCOUNTER 2017-06-04 17:52 | Emergency (ER) | payer MEDICAID ==
[~2017-06-04] VITALS: Ht 160 cm; Wt 86.0 kg
[~2017-06-04 17:52] MED LIST changes: +CIPR500T2 PO; +IBUP1TAB7 PO; +PROCHCT RECTAL; +TUCKPAD5 TOPICAL
[2017-06-04 17:53] VITALS: BP 133/68; PULSE 81; RESP 16; TEMP 98.9; O2SAT 99
[2017-06-04] MEDS ORDERED: SODIUM CHLOR 0.9% 1000 ML INJ 1,000 ML IV SCH (19:52)
[2017-06-04] MEDS ORDERED: ONDANSETRON HCL 4 MG/2 ML VIAL IVP ONE (20:00)
[2017-06-04] MEDS ORDERED: MORPHINE SULFATE 4 MG/ML INJ IV PUSH ONE (20:00)
--- NOTE | 2017-06-04 20:14 | PD ---
HPI Chief Complaint: Flank/Kidney Pain Time Seen by Provider: 19:47 Travel History International Travel<30 days: No Contact w/Intl Traveler<30days: No Traveled to known affect area: No History of Present Illness HPI 36-year-old female that presents to the ED for evaluation of left flank pain. Per patient she's had a history of kidney stones and feels similar. Per patient she is not sure she didn't pass the stone or she has any 1. She was recently seen on April a week after she gave to her child secondary to the flank pain. She was found to have a kidney stone as well as infection. She was admitted for 2 days and released. Per patient for the most per the pain seemed to have improve but never completely went away. She states that today the pain became more severe which is what prompted her evaluation. He denies any nausea or vomiting. She denies but states that she is not sure. She did go the Depo-Provera shot. She denies any chest pain or shortness of breath. Pain per patient is 7 out of 10 minutes significant to the point where she cannot sit on the left flank. Denies any numbness, tilling , weakness. No injuries. No vaginal discharge or bleeding. States that she does have some diarrhea on occasion. Denies any recent surgeries. She had a vaginal delivery. She is not breast-feeding currently. She does have allergies to different medications. PFSH Past Medical History Arthritis: Yes Bipolar Disorder: Yes Anxiety: Yes Depression: Yes Cancer: No Cardiovascular Problems: No Diabetes: No Endocrine: No Genitourinary: No Headaches: No Immune Disorder: No Musculoskeletal: No Neurologic: No Psychiatric: Yes (Reports treatment for bipolar disorder since age 13) Reproductive: No Respiratory: No Schizophrenia: Yes Seizures: No ?: Not : 8 Para: 5 Social History Alcohol Use: No Tobacco Use: Yes (3-4 cigarretes/day) Substance Use: Yes (etoh) Allergies-Medications (Allergen,Severity, Reaction): Coded Allergies: erythromycin base (Unverified Allergy, Severe, Anaphylaxis, 05/17/17) penicillin G (Unverified Allergy, Severe, Anaphylaxis, 05/17/17) naproxen (Unverified Allergy, Intermediate, Hives, 05/17/17) Sulfa (Sulfonamide Antibiotics) (Unverified Allergy, Unknown, 05/17/17) Reported Meds & Prescriptions Reported Meds & Active Scripts Active Hydrocodone-Acetaminophen 5-325 mg Tab 1 Tab PO Q6H PRN Cipro (Ciprofloxacin HCl) 500 Mg Tab 500 Mg PO BID 7 Days Tucks Medicated Topical (Witch Doris Topical) 50 % Pad 1 Pad TOPICAL Q4H PRN Proctofoam Hc Rectal (Hydrocortisone/Pramoxine) 1-1% Foam 1 Applic RECTAL Q8H PRN 14 Days Ibuprofen 800 Mg Tab 800 Mg PO Q6HR PRN Ciprofloxacin (Ciprofloxacin HCl) 500 Mg Tab 500 Mg PO BID Oxycodone-Acetaminophen 5-325 mg Tab 1 Tab PO Q4H PRN Senna Plus 8.6-50 mg (Sennosides-Docusate Sodium) 8.6 Mg-50 Mg Tab 2 Tab PO Q12H PRN Review of Systems Except as stated in HPI: all other systems reviewed are Neg Physical Exam Narrative GENERAL: SKIN: Warm and dry. HEAD: Atraumatic. Normocephalic. EYES: Pupils equal and round. No scleral icterus. No injection or drainage. ENT: No nasal bleeding or discharge. Mucous membranes pink and moist. Tongue is midline. No uvula deviation. NECK: Trachea midline. No JVD. CARDIOVASCULAR: Regular rate and rhythm. No murmurs, S3, S4. RESPIRATORY: No accessory muscle use. Clear to auscultation. Breath sounds equal bilaterally. GASTROINTESTINAL: Abdomen soft, non-tender, nondistended. Hepatic and splenic margins not palpable. Left CVA tenderness noted on exam. MUSCULOSKELETAL: Extremities without clubbing, cyanosis, or edema. No obvious deformities. Full range of motion of the upper and lower extremities bilaterally. 2+ pulses bilaterally. NEUROLOGICAL: Awake and alert. No obvious cranial nerve deficits. Motor grossly within normal limits. Five out of 5 muscle strength in the arms and legs. Normal speech. PSYCHIATRIC: Appropriate mood and affect; insight and judgment normal. Data Data Last Documented VS Vital Signs Date Time Temp Pulse Resp B/P (MAP) Pulse Ox O2 Delivery O2 Flow Rate FiO2 06/04/17 17:53 98.9 81 16 133/68 (89) 99 Orders Orders Complete Blood Count With Diff (06/04/17 19:52) Comprehensive Metabolic Panel (06/04/17 19:52) Lipase (06/04/17 19:52) Urinalysis - C+S If Indicated (06/04/17 19:52) Ct Abd/Pel W/O Iv Contrast (06/04/17 19:52) Iv Access Insert/Monitor (06/04/17 19:52) Ecg Monitoring (06/04/17 19:52) Morphine Inj (Morphine Inj) (06/04/17 20:00) Ondansetron Inj (Zofran Inj) (06/04/17 20:00) Sodium Chlor 0.9% 1000 Ml Inj (Ns 1000 M (06/04/17 19:52) Ed Urine Pregnancytest Poc (06/04/17 19:52) Urine Culture (06/04/17 19:57) Ciprofloxacin 400 Mg Premix (Cipro 400 M (06/04/17 20:45) Ed Discharge Order (06/04/17 20:57) Labs Laboratory Tests Test 06/04/17 19:57 06/04/17 20:05 Urine Color YELLOW Urine Turbidity CLOUDY Urine pH 5.5 Urine Specific [place] 1.019 Urine Protein 30 mg/dL Urine Glucose (UA) NEG mg/dL Urine Ketones NEG mg/dL Urine Occult Blood TRACE Urine Nitrite NEG Urine Bilirubin NEG Urine Urobilinogen LESS THAN 2.0 MG/DL Urine Leukocyte Esterase LARGE Urine RBC 53 /hpf Urine WBC 173 /hpf Urine WBC Clumps RARE Urine Squamous Epithelial Cells 109 /hpf Urine Amorphous Sediment MOD Urine Bacteria MOD /hpf Urine Mucus FEW /lpf Microscopic Urinalysis Comment CULTURE INDICATED White Blood Count 13.3 TH/MM3 Red Blood Count 4.27 MIL/MM3 Hemoglobin 12.9 GM/DL Hematocrit 38.2 % Mean Corpuscular Volume 89.6 FL Mean Corpuscular Hemoglobin 30.2 PG Mean Corpuscular Hemoglobin Concent 33.8 % Red Cell Distribution Width 13.5 % Platelet Count 324 TH/MM3 Mean Platelet Volume 8.9 FL Neutrophils (%) (Auto) 48.9 % Lymphocytes (%) (Auto) 42.6 % Monocytes (%) (Auto) 5.2 % Eosinophils (%) (Auto) 1.8 % Basophils (%) (Auto) 1.5 % Neutrophils # (Auto) 6.5 TH/MM3 Lymphocytes # (Auto) 5.7 TH/MM3 Monocytes # (Auto) 0.7 TH/MM3 Eosinophils # (Auto) 0.2 TH/MM3 Basophils # (Auto) 0.2 TH/MM3 CBC Comment AUTO DIFF Blood Urea Nitrogen 10 MG/DL Creatinine 0.91 MG/DL Random Glucose 81 MG/DL Total Protein 7.3 GM/DL Albumin 3.6 GM/DL Calcium Level 8.8 MG/DL Alkaline Phosphatase 101 U/L Aspartate Amino Transf (AST/SGOT) 20 U/L Alanine Aminotransferase (ALT/SGPT) 29 U/L Total Bilirubin 0.7 MG/DL Sodium Level 139 MEQ/L Potassium Level 3.9 MEQ/L Chloride Level 107 MEQ/L Carbon Dioxide Level 24.0 MEQ/L Anion Gap 8 MEQ/L Estimat Glomerular Filtration Rate 69 ML/MIN Lipase 137 U/L MDM Medical Decision Making Medical Screen Exam Complete: Yes Emergency Medical Condition: Yes Medical Record Reviewed: Yes Interpretation(s) CBC & BMP Diagram 06/04/17 20:05 Total Protein 7.3, Albumin 3.6, Calcium Level 8.8, Alkaline Phosphatase 101, Aspartate Amino Transf (AST/SGOT) 20, Alanine Aminotransferase (ALT/SGPT) 29, Total Bilirubin 0.7 Urine shows signs of infection. Last Impressions Abdomen/Pelvis CT 06/04/171951 Signed Impressions: Service Date/Time: Sunday, June 04, 2017 20:10 - CONCLUSION: 1. The previously seen left UVJ stone has passed. No remaining hydronephrosis. 2. 1 mm nonobstructing right renal stone. 3. Cholelithiasis. Chava Richardson Jr., MD Differential Diagnosis Flank pain versus kidney stone versus pyelonephritis versus pelvic pain versus UTI versus muscle strain versus acute on chronic pain Narrative Course 36-year-old female that presents to the ED for evaluation of left flank pain. Patient was properly examined and was found to have signs and symptoms consistent with appears to be flank pain. Unclear etiology at this time. Concerning for kidney stone versus infection. Labs and imaging were ordered. Patient was given IV pain medications and antiemetics as well as fluids. Labs and imaging showed signs of infection. No sign of kidney stone. Patient was pressure. This time I recommend trial of antibiotics. Patient was given a dose of Cipro here IV. She was given a prescription for Cipro and Lortab to use only as needed. Drink plenty of fluids. Follow with PCP. See ED worsening symptoms. She agrees and understands plan. Diagnosis Primary Impression: Pyelonephritis Patient Instructions: General Instructions, Narcotic given in the ED Additional Instructions: Take medications as prescribed. Follow-up with PCP. See ED for any worsening symptoms. Do not drink or drive while taking pain medication. Apply ice or heat as needed for pain Drink plenty of fluids. Med/Other Pt SpecificInfo: Prescription(s) given Scripts Hydrocodone-Acetaminophen (Hydrocodone-Acetaminophen) 5-325 mg Tab 1 TAB PO Q6H Y for PAIN, #12 TAB 0 Refills Prov: Daryl Lennon MD 06/04/17 Ciprofloxacin (Cipro) 500 Mg Tab 500 MG PO BID for Infection for 7 Days, #14 TAB 0 Refills Prov: Daryl Lennon MD 06/04/17 Disposition: 01 DISCHARGE HOME Condition: Ortega Huerta Jun 04, 2017 20:14
[2017-06-04 20:21] LABS: AUTOMATED NEUTROPHIL # 6.5 TH/MM3 (1.8-7.7); BASOPHIL # 0.2 TH/MM3 (0-0.2); BASOPHIL % 1.5 % (0.0-2.0); EOSINOPHIL # 0.2 TH/MM3 (0-0.4); EOSINOPHIL % 1.8 % (0.0-4.0); HEMATOCRIT 38.2 % (35.0-46.0); LYMPH % 42.6 % (9.0-44.0); LYMPHOCYTE # 5.7 TH/MM3 (1.0-4.8); MEAN CELL VOLUME 89.6 FL (80.0-100.0); MEAN CORPUSCULAR HEMOGLOBIN 30.2 PG (27.0-34.0); MEAN CORPUSCULAR HGB CONC 33.8 % (32.0-36.0); MONO % 5.2 % (0.0-8.0); NEUT % 48.9 % (16.0-70.0); PLATELET COUNT 324 TH/MM3 (150-450); RED BLOOD COUNT 4.27 MIL/MM3 (4.00-5.30); RED CELL DISTRIBUTION WIDTH 13.5 % (11.6-17.2); WHITE BLOOD COUNT 13.3 TH/MM3 (4.0-11.0)
[2017-06-04 20:23] LABS: HEMO FLAGS AUTO DIFF
--- NOTE | 2017-06-04 20:23 | RADRPT ---
EXAM DATE/TIME: 06/04/2017 20:10 [facility] COMPARISON: CT ABDOMEN & PELVIS W/O CONTRAST, May 11, 2017, 3:43. INDICATIONS : Left flank pain; possible renal calculi. ORAL CONTRAST: No oral contrast ingested. RADIATION DOSE: 8.49 CTDIvol (mGy) MEDICAL HISTORY : Renal calculi. SURGICAL HISTORY : None. ENCOUNTER: Subsequent ACUITY: 1 month PAIN SCALE: 7/10 LOCATION: Left flank abdomen TECHNIQUE: Volumetric scanning of the abdomen and pelvis was performed. Using automated exposure control and ad justment of the mA and/or kV according to patient size, radiation dose was kept as low as reasonably achievable to obtain optimal diagnostic quality images. DICOM format image data is available electro nically for review and comparison. FINDINGS: LOWER LUNGS: The visualized lower lungs are clear. LIVER: Homogeneous density without lesion. There is no dilation of the biliary tree. Small calcified gallst ones within an otherwise normal-appearing gallbladder. SPLEEN: Normal size without lesion. PANCREAS: Within normal limits. KIDNEYS: Normal in size and shape. There is no mass or hydronephrosis. A 1 mm stone is seen involving the low er pole of the right kidney. No ureteral stones. The previously seen stone at the left UVJ has passed . No hydronephrosis remaining on the left. ADRENAL GLANDS: Within normal limits. VASCULAR: There is no aortic aneurysm. BOWEL/MESENTERY: The stomach, small bowel, and colon demonstrate no acute abnormality. There is no free intraperitone al air or fluid. ABDOMINAL WALL: Within normal limits. RETROPERITONEUM: There is no lymphadenopathy. BLADDER: No wall thickening or mass. REPRODUCTIVE: Within normal limits. INGUINAL: There is no lymphadenopathy or hernia. MUSCULOSKELETAL: Within normal limits for patient age. CONCLUSION: 1. The previously seen left UVJ stone has passed. No remaining hydronephrosis. 2. 1 mm nonobstructing right renal stone. 3. Cholelithiasis. Chava Richardson Jr., MD on June 04, 2017 at 20:18 Board Certified Radiologist. This report was verified electronically.
[2017-06-04 20:31] LABS: BACTERIA, URINE MOD /hpf; BLOOD, URINE TRACE (NEG); COMMENT (UR) CULTURE INDICATED; CULTURE IF INDICATED CULTURE INDICATED; GLUCOSE,URINE NEG (NEG); KETONE, URINE NEG (NEG); MUCUS URINE FEW /lpf (OCC); NITRITE,URINE NEG (NEG); PH, URINE 5.5 (5.0-8.5); SQUAMOUS EPITHELIAL CELL URINE 109 /hpf (0-5); URINE COLOR YELLOW (YELLW/STRAW)
[2017-06-04] MEDS ORDERED: CIPROFLOXACIN 400 MG PREMIX 200 ML IV ONE (20:45)
[2017-06-04 20:47] LABS: ANION GAP 8 MEQ/L (5-15); AST (GOT) 20 U/L (15-37); BLOOD UREA NITROGEN 10 MG/DL (7-18); CHLORIDE 107 MEQ/L (98-107); GLOMERULAR FILTRATION RATE 69 ML/MIN (>89); POTASSIUM 3.9 MEQ/L (3.5-5.1); SODIUM (NA) 139 MEQ/L (136-145)
[2017-06-04 20:48] LABS: ALT (GPT) 29 U/L (10-53)
[2017-06-04 20:50] LABS: ALKALINE PHOSPHATASE 101 U/L (45-117); TOTAL BILIRUBIN ADULT 0.7 MG/DL (0.2-1.0)
[2017-06-04] MEDS ORDERED: HYDR-3516 PO (20:56)
[2017-06-04] MEDS ORDERED: CIPR-9 PO (20:56)
[2017-06-04 21:19] LABS: EOSINOPHILS 1 % (0-4); NEUTROPHIL # MANUAL DIFF 6.3 TH/MM3 (1.8-7.7); POLYS (SEG NEUTROPHILS) 47 % (16-70); WBC DIFF SAMPLE 100
[2017-06-04 21:27] LABS: PLATELET ESTIMATE SMEAR NORMAL (NORMAL); PLATELET MORPHOLOGY NORMAL (NORMAL); SCAN/DIFF FINAL DIFF MANUAL
[2017-06-15] MEDS ORDERED: IBUP1TAB7 PO (14:09)
== END 2017-06-04 22:13 | disposition home or self-care (01) ==
LOC: NEPE 17:52
DX: N12 Tubulo-interstitial nephritis, not specified as acute or chronic (principal); N20.0 Calculus of kidney; K80.20 Calculus of gallbladder without cholecystitis without obstruction; B96.89 Other specified bacterial agents as the cause of diseases classified elsewhere; M19.90 Unspecified osteoarthritis, unspecified site; F31.9 Bipolar disorder, unspecified; F41.9 Anxiety disorder, unspecified; F20.9 Schizophrenia, unspecified; F17.210 Nicotine dependence, cigarettes, uncomplicated
CPT/HCPCS: 74176; 80053; 81001; 83690; 84703; 85007; 85027; 87086; 96361; 96374; 96375; 99285; J0744; J2270; J2405; J7030

== ENCOUNTER 2017-06-18 09:42 | Emergency (ER) | payer MEDICAID ==
[~2017-06-18] VITALS: Ht 157.5 cm; Wt 85.0 kg
[~2017-06-18 09:42] MED LIST changes: -CIPR500T2 PO; -OXYC1TAB63 PO; -PROCHCT RECTAL; -SENN1TAB PO; -TUCKPAD5 TOPICAL
[2017-06-18 09:45] VITALS: BP 119/64; PULSE 80; RESP 16; TEMP 98.4; O2SAT 99
[2017-06-18] MEDS ORDERED: MORPHINE SULFATE 4 MG/ML INJ IV PUSH ONE (10:00)
[2017-06-18] MEDS ORDERED: ONDANSETRON HCL 4 MG/2 ML VIAL IVP ONE (10:00)
[2017-06-18] MEDS ORDERED: SODIUM CHLORIDE 0.9% FLUSH 10 ML FLUSH IVF PRN (10:00)
[2017-06-18] MEDS ORDERED: KETOROLAC TROMETHAMINE 30 MG/ML (IVP) VIAL IVP ONE (10:00)
[2017-06-18 10:34] LABS: BLOOD, URINE MOD (NEG); COMMENT (UR) CULT NOT INDICATED; CULTURE IF INDICATED CULT NOT INDICATED; GLUCOSE,URINE NEG (NEG); KETONE, URINE NEG (NEG); NITRITE,URINE NEG (NEG); SQUAMOUS EPITHELIAL CELL URINE 2 /hpf (0-5); URINE COLOR LIGHT-YELLOW (YELLW/STRAW)
--- NOTE | 2017-06-18 10:36 | PD ---
HPI . Flank pain Chief Complaint: Flank/Kidney Pain Time Seen by Provider: 09:48 Travel History International Travel<30 days: No Contact w/Intl Traveler<30days: No Traveled to known affect area: No History of Present Illness HPI This patient presents with chief complaint of left flank pain. Onset was a few days ago. She reports no change in her symptoms over the course of last couple of days. She rates her pain 8/10. She states her pain is exacerbated by eating and by pressing on the area. She reports a subjective fever. She denies any urinary tract symptoms such as dysuria, frequency, urgency or hematuria. Patient reports a couple of recent similar episodes. She states that she was actually hospitalized for this recently. She states that she had a kidney stone as well as an infection. PFSH Past Medical History Arthritis: Yes Bipolar Disorder: Yes Anxiety: Yes Depression: Yes Cancer: No Cardiovascular Problems: No Diabetes: No Endocrine: No Genitourinary: No Headaches: No Immune Disorder: No Musculoskeletal: No Neurologic: No Psychiatric: Yes (Reports treatment for bipolar disorder since age 13) Reproductive: No Respiratory: No Schizophrenia: Yes Seizures: No ?: Not LMP: 06/14/17 : 8 Para: 5 Social History Alcohol Use: No Tobacco Use: Yes (3-4 cigarretes/day) Substance Use: Yes (etoh) Allergies-Medications (Allergen,Severity, Reaction): Coded Allergies: erythromycin base (Unverified Allergy, Severe, Anaphylaxis, 06/15/17) penicillin G (Unverified Allergy, Severe, Anaphylaxis, 06/15/17) naproxen (Unverified Allergy, Intermediate, Hives, 06/15/17) Sulfa (Sulfonamide Antibiotics) (Unverified Allergy, Unknown, 06/15/17) Reported Meds & Prescriptions Reported Meds & Active Scripts Active Ibuprofen 800 Mg Tab 800 Mg PO Q8H PRN Review of Systems Except as stated in HPI: all other systems reviewed are Neg General / Constitutional: Positive: Fever, Chills Gastrointestinal: No: Nausea, Vomiting, Diarrhea Genitourinary: Positive: Flank Pain, No: Urgency, Frequency, Dysuria, Hematuria , Discharge Physical Exam Narrative GENERAL: This patient looks very comfortable. She does not have the typical appearance of the patient with a kidney stone. SKIN: warm/dry. Normal color. HEAD: Normocephalic. Atraumatic. EYES: Pupils equal and round. No scleral icterus. No injection or drainage. ENT: No nasal bleeding or discharge. Mucous membranes pink and moist. NECK: Trachea midline. Full range of motion without pain.. CARDIOVASCULAR: Regular rate and rhythm. Heart sounds are normal. RESPIRATORY: No accessory muscle use. Clear to auscultation. Breath sounds equal bilaterally. GASTROINTESTINAL: Abdomen soft. Tenderness on her left side. Bowel sounds present. Nondistended. Positive left CVA tenderness. MUSCULOSKELETAL: No obvious deformities. NEUROLOGICAL: Awake and alert. No obvious cranial nerve deficits. Motor grossly within normal limits. Normal speech. PSYCHIATRIC: Appropriate mood and affect; insight and judgment normal. Data Data Last Documented VS Vital Signs Date Time Temp Pulse Resp B/P (MAP) Pulse Ox O2 Delivery O2 Flow Rate FiO2 06/18/17 09:45 98.4 80 16 119/64 (82) 99 Orders Orders Urinalysis - C+S If Indicated (06/18/17 09:49) Ct Abd/Pel W/O Iv Contrast (06/18/17 09:49) Iv Access Insert/Monitor (06/18/17 09:49) Ketorolac Inj (Toradol Inj) (06/18/17 10:00) Ondansetron Inj (Zofran Inj) (06/18/17 10:00) Sodium Chloride 0.9% Flush (Ns Flush) (06/18/17 10:00) Morphine Inj (Morphine Inj) (06/18/17 10:00) Ed Urine Pregnancytest Poc (06/18/17 09:51) Labs Laboratory Tests Test 06/18/17 10:10 Urine Color LIGHT-YELLOW Urine Turbidity CLEAR Urine pH 6.0 Urine Specific [place] 1.008 Urine Protein NEG mg/dL Urine Glucose (UA) NEG mg/dL Urine Ketones NEG mg/dL Urine Occult Blood MOD Urine Nitrite NEG Urine Bilirubin NEG Urine Urobilinogen LESS THAN 2.0 MG/DL Urine Leukocyte Esterase NEG Urine RBC 1 /hpf Urine WBC 1 /hpf Urine Squamous Epithelial Cells 2 /hpf Microscopic Urinalysis Comment CULT NOT INDICATED MDM Medical Decision Making Medical Screen Exam Complete: Yes Emergency Medical Condition: Yes Medical Record Reviewed: Yes (patient was admitted to the hospital on 05/11 with a 2 mm left UVJ stone associated with pyelonephritis. She was seen again on 11/10 with similar symptoms. Her stone had passed. She did have a urinary tract infection.) Differential Diagnosis Differential diagnosis of flank pain includes but is not limited to kidney stone , pyelonephritis, musculoskeletal pain, PE Narrative Course This patient presents with left flank pain. She has had since similar episodes of both kidney colic and pyelonephritis. However, she looks very comfortable. He is in progress. She is being treated with IV Toradol and morphine. UA is also in progress. UA>>mod blood, 1 RBC. nitrite and LE neg. Last Impressions Abdomen/Pelvis CT 06/18/17 0949 Signed Impressions: Service Date/Time: Sunday, June 18, 2017 10:55 - CONCLUSION: 1. No acute abnormality to explain the patient's pain. 2. Cholelithiasis. 3. 1 mm nonobstructing right renal stone. Chava Richardson Jr., MD This patient has no evidence of either pyelonephritis or nephrolithiasis. Her pain is probably musculoskeletal. She'll be discharged home with prescription for Relafen and Flexeril. Diagnosis Primary Impression: Left flank pain Patient Instructions: Flank Pain (ED), General Instructions Med/Other Pt SpecificInfo: Prescription(s) given Scripts Cyclobenzaprine (Flexeril) 10 Mg Tab 10 MG PO TID for Muscle Spasm, #30 TAB 0 Refills Prov: Khalida Soto MD 06/18/17 Nabumetone (Nabumetone) 500 Mg Tab 500 MG PO BID for Pain-Inflammation, #60 TAB 0 Refills Prov: Khalida Soto MD 06/18/17 Disposition: 01 DISCHARGE HOME Condition: Stable Khalida Soto MD Jun 18, 2017 10:36
--- NOTE | 2017-06-18 11:32 | RADRPT ---
EXAM DATE/TIME: 06/18/2017 10:55 [facility] COMPARISON: CT ABDOMEN & PELVIS W/O CONTRAST, June 04, 2017, 20:10. INDICATIONS : Left flank pain. ORAL CONTRAST: No oral contrast ingested. RADIATION DOSE: 21.30 CTDIvol (mGy) MEDICAL HISTORY : Renal calculi. SURGICAL HISTORY : Back surgery. ENCOUNTER: Initial ACUITY: 1 day PAIN SCALE: 5/10 LOCATION: Left flank TECHNIQUE: Volumetric scanning of the abdomen and pelvis was performed. Using automated exposure control and ad justment of the mA and/or kV according to patient size, radiation dose was kept as low as reasonably achievable to obtain optimal diagnostic quality images. DICOM format image data is available electro nically for review and comparison. FINDINGS: LOWER LUNGS: The visualized lower lungs are clear. LIVER: Homogeneous density without lesion. There is no dilation of the biliary tree. Tiny calcified gallst ones layering within an otherwise normal-appearing gallbladder. SPLEEN: Normal size without lesion. PANCREAS: Within normal limits. KIDNEYS: Normal in size and shape. There is no mass or hydronephrosis. A 1 mm nonobstructing stone is seen in volving the lower pole of the right kidney. ADRENAL GLANDS: Within normal limits. VASCULAR: There is no aortic aneurysm. BOWEL/MESENTERY: The stomach, small bowel, and colon demonstrate no acute abnormality. There is no free intraperitone al air or fluid. ABDOMINAL WALL: Within normal limits. RETROPERITONEUM: There is no lymphadenopathy. BLADDER: No wall thickening or mass. REPRODUCTIVE: Within normal limits. INGUINAL: There is no lymphadenopathy or hernia. MUSCULOSKELETAL: Within normal limits for patient age. CONCLUSION: 1. No acute abnormality to explain the patient's pain. 2. Cholelithiasis. 3. 1 mm nonobstructing right renal stone. Chava Richardson Jr., MD on June 18, 2017 at 11:19 Board Certified Radiologist. This report was verified electronically.
[2017-06-18] MEDS ORDERED: NABU1TAB37 PO (11:40)
[2017-06-18] MEDS ORDERED: CYCL10TA PO (11:40)
[2017-06-18 11:53] VITALS: RESP 20
== END 2017-06-18 12:15 | disposition home or self-care (01) ==
LOC: NEPD 09:42
DX: K80.20 Calculus of gallbladder without cholecystitis without obstruction (principal); N20.0 Calculus of kidney; M19.90 Unspecified osteoarthritis, unspecified site; F31.9 Bipolar disorder, unspecified; F41.9 Anxiety disorder, unspecified; F20.9 Schizophrenia, unspecified; F17.210 Nicotine dependence, cigarettes, uncomplicated; Z88.0 Allergy status to penicillin; Z88.2 Allergy status to sulfonamides
CPT/HCPCS: 74176; 81001; 84703; 96374; 96375; 99285; J1885; J2270; J2405

== ENCOUNTER 2017-06-23 20:08 | Emergency (ER) | payer MEDICAID ==
[~2017-06-23 20:08] MED LIST changes: +CYCL10TA PO; +NABU1TAB37 PO
[2017-06-23 20:10] VITALS: BP 128/62; PULSE 98; RESP 16; TEMP 97.9; O2SAT 100
--- NOTE | 2017-06-23 22:11 | PD ---
HPI Chief Complaint: Back/ Neck Pain or Injury Time Seen by Provider: 21:58 Travel History International Travel<30 days: No Contact w/Intl Traveler<30days: No Traveled to known affect area: No History of Present Illness HPI 36-year-old white female presents to emergency Department with complaints of acute exacerbation of chronic back pain. She states that she was seen in the ER 2 days ago for back pain which she states that was related to possible kidney stones. Patient has made an appointment to see her pain management doctor this past . She is waiting to be seen the next week or 2. She states that she's had exacerbation of her chronic pain by an injury today getting holiday lights. He reports that the door hit her in her back. She reports an exacerbation of the pain. She denies any injury to her head. No nausea vomiting. No numbness, tingling or weakness. No acute bowel or bladder changes. History Past Medical Histgory Narrative Medical Bipolar, chronic back pain, kidney stones Hx Cancer: No Social History Alcohol Use: No Tobacco Use: Yes (3-4 cigarretes/day) Allergies-Medications (Allergen,Severity, Reaction): Coded Allergies: erythromycin base (Unverified Allergy, Severe, Anaphylaxis, 06/15/17) penicillin G (Unverified Allergy, Severe, Anaphylaxis, 06/15/17) naproxen (Unverified Allergy, Intermediate, Hives, 06/15/17) Sulfa (Sulfonamide Antibiotics) (Unverified Allergy, Unknown, 06/15/17) Reported Meds & Prescriptions Reported Meds & Active Scripts Active Flexeril (Cyclobenzaprine HCl) 10 Mg Tab 10 Mg PO TID Nabumetone 500 Mg Tab 500 Mg PO BID Ibuprofen 800 Mg Tab 800 Mg PO Q8H PRN Review of Systems General / Constitutional: No: Fever Eyes: No: Visual changes HENT: No: Headaches Cardiovascular: No: Chest Pain or Discomfort Respiratory: No: Shortness of Breath Gastrointestinal: No: Abdominal Pain Genitourinary: No: Dysuria, Hematuria Musculoskeletal: Positive: Myalgias, Limited ROM, Pain, No: Weakness, Cramping Skin: No Rash Neurologic: No: Weakness Psychiatric: No: Depression Endocrine: No: Polydipsia Hematologic/Lymphatic: No: Easy Bruising Physical Exam Narrative GENERAL: Well-developed, well-nourished in no apparent distress. Nontoxic appearing. The patient is laying down in the examination room on her left side. She appears to be sleeping. She is somnolent but arousable. She sits up for exam. Her speech is somewhat slurred. Patient appears under the influence of medications. HEAD: Normocephalic, atraumatic. EYES: Pupils equal round and reactive. Extraocular motions intact. No scleral icterus. No injection or drainage. ENT: Nose clear. Throat without erythema, tonsillar hypertrophy or exudate. Uvula midline. Airway patent. NECK: Trachea midline. Supple, nontender, moves head freely. No central bony tenderness or spasm. CARDIOVASCULAR: Regular rate and rhythm without murmurs, gallops, or rubs. RESPIRATORY: Clear to auscultation. Breath sounds equal bilaterally. No wheezes , rales, or rhonchi. GASTROINTESTINAL: Abdomen soft, non-tender, nondistended. No hepato-splenomegaly , or palpable masses. No guarding. EXTREMITIES: No clubbing, cyanosis, or edema. No joint tenderness. BACK: Nontender without deformity. No flank tenderness. No gross spasm. No localizing tenderness. Patient does not appear to be having any limitations of movement or range of motion in NEUROLOGICAL: Awake, alert and oriented x 3 .Cranial nerves grossly intact. Motor and sensory grossly within normal limits. Somewhat slurred speech. Data Data Last Documented VS Vital Signs Date Time Temp Pulse Resp B/P (MAP) Pulse Ox O2 Delivery O2 Flow Rate FiO2 06/23/17 20:10 97.9 98 16 128/62 (84) 100 Room Air MDM Medical Screen Exam Complete: Yes Emergency Medical Condition: No Differential Diagnosis MDM: High Differential diagnoses: Fracture, sprain, strain, HNP, nerve or vascular injury , epidural abscess, nephrolithiasis Narrative Course A medical screening exam was performed: At the time of evaluation the presenting medical condition was determined not to be of an emergent nature. The patient was given the option of receiving additional care, but declined. Patient was given options for additional community resources from which to obtain care. The Patient Has Been advised to seek medical attention for their presenting complaint. The patient has been advised to return to the ER at any time if an emergent condition develops. Primary Impression: Encounter for medical screening examination Condition: Stable Hill Sheehan Jun 23, 2017 22:11
== END 2017-06-23 22:28 | disposition left against medical advice (07) ==
LOC: NEPK 20:08
DX: M54.9 Dorsalgia, unspecified (principal); G89.29 Other chronic pain; M79.1 Myalgia; F31.9 Bipolar disorder, unspecified; F17.210 Nicotine dependence, cigarettes, uncomplicated; Z88.1 Allergy status to other antibiotic agents; Z87.442 Personal history of urinary calculi; Z88.2 Allergy status to sulfonamides; Z79.899 Other long term (current) drug therapy
CPT/HCPCS: 99281

== ENCOUNTER 2017-07-14 12:04 | Emergency (ER) | payer MEDICAID ==
[2017-07-14 12:06] VITALS: BP 152/64; PULSE 101; RESP 18; TEMP 99.4; O2SAT 96
--- NOTE | 2017-07-14 12:17 | PD ---
HPI Chief Complaint: GI Complaint Time Seen by Provider: 12:16 Travel History International Travel<30 days: No Contact w/Intl Traveler<30days: No Traveled to known affect area: No History of Present Illness HPI 36-year-old female came to the emergency room with history of left flank pain coming from the mid back wrapping around all the way to the anterior abdomen in the middle. Patient says that this pain has been going on for past 3 days. Has history of kidney stones and feels like this is similar to when she passed a kidney stone. The pain is just there constantly with no aggravating or relieving factors identified. No history of vomiting. The patient has been nauseous today. She has had some diarrhea in past 2 days as well. As that she has been having difficulty hearing out of her right ear. She says she tried to clean it up with peroxide yesterday. Today it is itchy but no pain. No history of fever or chills. No history of hematuria. PFSH Past Medical History Narrative Medical List of her past medical, surgical, social and family history is reviewed from the nursing note. Arthritis: Yes Bipolar Disorder: Yes Anxiety: Yes Depression: Yes Cancer: No Cardiovascular Problems: No Diabetes: No Endocrine: No Genitourinary: No Headaches: No Immune Disorder: No Musculoskeletal: No Neurologic: No Psychiatric: Yes (Reports treatment for bipolar disorder since age 13) Reproductive: No Respiratory: No Schizophrenia: Yes Seizures: No ?: Not LMP: on depo, 06/25/17 : 8 Para: 5 Social History Alcohol Use: No Tobacco Use: Yes (3-4 cigarretes/day) Substance Use: Yes (etoh) Allergies-Medications (Allergen,Severity, Reaction): Coded Allergies: erythromycin base (Unverified Allergy, Severe, Anaphylaxis, 06/15/17) penicillin G (Unverified Allergy, Severe, Anaphylaxis, 06/15/17) naproxen (Unverified Allergy, Intermediate, Hives, 06/15/17) Sulfa (Sulfonamide Antibiotics) (Unverified Allergy, Unknown, 06/15/17) Comments List of her allergies reviewed from the nursing note. List of her allergies reviewed from the nursing note. Reported Meds & Prescriptions Reported Meds & Active Scripts Active Clindamycin (Clindamycin HCl) 300 Mg Cap 300 Mg PO TID 10 Days Flexeril (Cyclobenzaprine HCl) 10 Mg Tab 10 Mg PO TID Nabumetone 500 Mg Tab 500 Mg PO BID Ibuprofen 800 Mg Tab 800 Mg PO Q8H PRN Narrative Medication List of her home medications reviewed from the nursing note. Review of Systems Except as stated in HPI: all other systems reviewed are Neg Gastrointestinal: Positive: Diarrhea Genitourinary: Positive: Flank Pain Physical Exam Narrative GENERAL: Awake, alert, obese, mild distress SKIN: Focused skin assessment warm/dry. HEAD: Atraumatic. Normocephalic. EYES: Pupils equal and round. No scleral icterus. No injection or drainage. ENT: No nasal bleeding or discharge. Mucous membranes pink and moist. Right TM is significantly inflamed, erythematous and dull. Partial occlusion with cerumen NECK: Trachea midline. No JVD. CARDIOVASCULAR: Regular rate and rhythm. No murmur appreciated. RESPIRATORY: No accessory muscle use. Clear to auscultation. Breath sounds equal bilaterally. GASTROINTESTINAL: Abdomen soft, non-tender, nondistended. Hepatic and splenic margins not palpable. MUSCULOSKELETAL: No obvious deformities. No clubbing. No cyanosis. No edema. NEUROLOGICAL: Awake and alert. No obvious cranial nerve deficits. Motor grossly within normal limits. Normal speech. PSYCHIATRIC: Appropriate mood and affect; insight and judgment normal. Data Data Last Documented VS Orders Orders Complete Blood Count With Diff (07/14/17 12:36) Comprehensive Metabolic Panel (07/14/17 12:36) Urinalysis - C+S If Indicated (07/14/17 12:36) Ct Abd/Pel W/O Iv Contrast (07/14/17 12:36) Iv Access Insert/Monitor (07/14/17 12:36) Ecg Monitoring (07/14/17 12:36) Oximetry (07/14/17 12:36) Ondansetron Inj (Zofran Inj) (07/14/17 12:45) Sodium Chlor 0.9% 1000 Ml Inj (Ns 1000 M (07/14/17 12:36) Sodium Chloride 0.9% Flush (Ns Flush) (07/14/17 12:45) Ed Urine Pregnancytest Poc (07/14/17 12:36) Ed Discharge Order (07/14/17 14:43) Labs Laboratory Tests Test 07/14/17 12:45 07/14/17 13:30 Urine Color LIGHT-YELLOW Urine Turbidity HAZY Urine pH 5.5 Urine Specific [place] 1.010 Urine Protein NEG mg/dL Urine Glucose (UA) NEG mg/dL Urine Ketones NEG mg/dL Urine Occult Blood NEG Urine Nitrite NEG Urine Bilirubin NEG Urine Urobilinogen LESS THAN 2.0 MG/DL Urine Leukocyte Esterase LARGE Urine RBC 2 /hpf Urine WBC 2 /hpf Urine Squamous Epithelial Cells 9 /hpf Urine Bacteria FEW /hpf Urine Mucus FEW /lpf Microscopic Urinalysis Comment CULT NOT INDICATED White Blood Count 13.6 TH/MM3 Red Blood Count 4.72 MIL/MM3 Hemoglobin 14.5 GM/DL Hematocrit 41.8 % Mean Corpuscular Volume 88.6 FL Mean Corpuscular Hemoglobin 30.6 PG Mean Corpuscular Hemoglobin Concent 34.6 % Red Cell Distribution Width 13.9 % Platelet Count 263 TH/MM3 Mean Platelet Volume 8.9 FL Neutrophils (%) (Auto) 54.3 % Lymphocytes (%) (Auto) 36.7 % Monocytes (%) (Auto) 6.5 % Eosinophils (%) (Auto) 1.9 % Basophils (%) (Auto) 0.6 % Neutrophils # (Auto) 7.4 TH/MM3 Lymphocytes # (Auto) 5.0 TH/MM3 Monocytes # (Auto) 0.9 TH/MM3 Eosinophils # (Auto) 0.3 TH/MM3 Basophils # (Auto) 0.1 TH/MM3 CBC Comment DIFF FINAL Differential Comment Blood Urea Nitrogen 9 MG/DL Creatinine 0.74 MG/DL Random Glucose 77 MG/DL Total Protein 7.4 GM/DL Albumin 3.7 GM/DL Calcium Level 8.8 MG/DL Alkaline Phosphatase 91 U/L Aspartate Amino Transf (AST/SGOT) 18 U/L Alanine Aminotransferase (ALT/SGPT) 31 U/L Total Bilirubin 0.5 MG/DL Sodium Level 140 MEQ/L Potassium Level 3.9 MEQ/L Chloride Level 111 MEQ/L Carbon Dioxide Level 24.8 MEQ/L Anion Gap 4 MEQ/L Estimat Glomerular Filtration Rate 88 ML/MIN [facility] Medical Decision Making Medical Screen Exam Complete: Yes Emergency Medical Condition: Yes Medical Record Reviewed: Yes Differential Diagnosis Ureteral colic, otitis media, UTI Narrative Course 2:[address] scan of the abdomen was negative for any kidney or ureteral stones. Blood test results were within acceptable limit except for WBC count that was slightly elevated. Patient's right ear was irrigated. Please refer to my procedure note. She tolerated the procedure well. I'll discharge her home on antibiotic prescription. Procedures Procedure Narrative Right ear irrigation: Right ear was irrigated with 500 cc of normal saline mixed with 250 cc of peroxide. This was pulled in a 60 cc syringe attached to a 14-gauge Angiocath and continuous irrigation was done. He'll specks us cerumen debris came out but no big bulk of cerumen seen. Patient tolerated the procedure well. EKG Prior to Arrival: No Diagnosis Primary Impression: Abdominal pain, unspecified site Additional Impressions: Otitis media Qualified Codes: H65.191 - Other acute nonsuppurative otitis media, right ear Decreased hearing of right ear Referrals: Primary Care Physician Additional Instructions: Take the medication as per the prescription direction. Return to your primary care physician if you still have decreased hearing after the antibiotic course. Her primary care main need to refer you to any ENT specialist. Return to the ER if the condition worsens or any other new concerns. Med/Other Pt SpecificInfo: Prescription(s) given Scripts Clindamycin (Clindamycin) 300 Mg Cap 300 MG PO TID for Infection for 10 Days, CAP 0 Refills Prov: Ry Keller MD 07/14/17 Disposition: 01 DISCHARGE HOME Condition: Stable Ry Keller MD Jul 14, 2017 12:17
[2017-07-14] MEDS ORDERED: SODIUM CHLOR 0.9% 1000 ML INJ 1,000 ML IV SCH (12:36)
[2017-07-14 12:40] VITALS: RESP 16; O2SAT 100
[2017-07-14] MEDS ORDERED: ONDANSETRON HCL 4 MG/2 ML VIAL IVP ONE (12:45)
[2017-07-14] MEDS ORDERED: SODIUM CHLORIDE 0.9% FLUSH 10 ML FLUSH IV FLUSH PRN (12:45)
[2017-07-14 13:03] LABS: BACTERIA, URINE FEW /hpf; BILIRUBIN, URINE NEG (NEG); BLOOD, URINE NEG (NEG); GLUCOSE,URINE NEG (NEG); KETONE, URINE NEG (NEG); MUCUS URINE FEW /lpf (OCC); NITRITE,URINE NEG (NEG); PH, URINE 5.5 (5.0-8.5); SQUAMOUS EPITHELIAL CELL URINE 9 /hpf (0-5); URINE COLOR LIGHT-YELLOW (YELLW/STRAW); URINE LEUKOCYTE ESTERASE LARGE (NEG)
--- NOTE | 2017-07-14 13:25 | RADRPT ---
EXAM DATE/TIME: 07/14/2017 12:58 [facility] COMPARISON: CT ABDOMEN & PELVIS W/O CONTRAST, June 18, 2017, 10:55. INDICATIONS : Left upper and lower quadrant pain, intermittent nausea. ORAL CONTRAST: No oral contrast ingested. RADIATION DOSE: 14.23 CTDIvol (mGy) MEDICAL HISTORY : Renal calculi. SURGICAL HISTORY : None. ENCOUNTER: Initial ACUITY: 1 day PAIN SCALE: 6/10 LOCATION: Left upper quadrant TECHNIQUE: Volumetric scanning of the abdomen and pelvis was performed. Using automated exposure control and ad justment of the mA and/or kV according to patient size, radiation dose was kept as low as reasonably achievable to obtain optimal diagnostic quality images. DICOM format image data is available electro nically for review and comparison. FINDINGS: Lung base is are clear. The liver and spleen are unremarkable Minimal wall thickening of the gallbladder without gallstones Pancreas, adrenals and kidneys are unremarkable. There are no renal stones There is no adenopathy or ascites There is no inflammatory changes in the mesentery. Fluid within the pelvis CONCLUSION: Small gallbladder with minimal wall thickening present without gallstones or inflammatory changes. C orrelation is suggested. No other abnormality. Fabian Modi MD FACR on July 14, 2017 at 13:21 Board Certified Radiologist. This report was verified electronically.
[2017-07-14 13:54] LABS: AUTOMATED NEUTROPHIL # 7.4 TH/MM3 (1.8-7.7); BASOPHIL # 0.1 TH/MM3 (0-0.2); BASOPHIL % 0.6 % (0.0-2.0); EOSINOPHIL # 0.3 TH/MM3 (0-0.4); EOSINOPHIL % 1.9 % (0.0-4.0); HEMATOCRIT 41.8 % (35.0-46.0); HEMOGLOBIN 14.5 GM/DL (11.6-15.3); LYMPH % 36.7 % (9.0-44.0); MEAN CELL VOLUME 88.6 FL (80.0-100.0); MEAN CORPUSCULAR HEMOGLOBIN 30.6 PG (27.0-34.0); MEAN CORPUSCULAR HGB CONC 34.6 % (32.0-36.0); MEAN PLATELET VOLUME 8.9 FL (7.0-11.0); MONO % 6.5 % (0.0-8.0); MONOCYTE # 0.9 TH/MM3 (0-0.9); NEUT % 54.3 % (16.0-70.0); PLATELET COUNT 263 TH/MM3 (150-450); RED BLOOD COUNT 4.72 MIL/MM3 (4.00-5.30); RED CELL DISTRIBUTION WIDTH 13.9 % (11.6-17.2); WHITE BLOOD COUNT 13.6 TH/MM3 (4.0-11.0)
[2017-07-14 14:16] LABS: ALKALINE PHOSPHATASE 91 U/L (45-117); TOTAL BILIRUBIN ADULT 0.5 MG/DL (0.2-1.0); TOTAL PROTEIN 7.4 GM/DL (6.4-8.2)
[2017-07-14 14:21] LABS: ALBUMIN 3.7 GM/DL (3.4-5.0); ALT (GPT) 31 U/L (10-53); AST (GOT) 18 U/L (15-37); BICARBONATE 24.8 MEQ/L (21.0-32.0); BLOOD UREA NITROGEN 9 MG/DL (7-18); CALCIUM 8.8 MG/DL (8.5-10.1); CHLORIDE 111 MEQ/L (98-107); CREATININE 0.74 MG/DL (0.50-1.00); GLOMERULAR FILTRATION RATE 88 ML/MIN (>89); GLUCOSE,RANDOM 77 MG/DL (74-106); SODIUM (NA) 140 MEQ/L (136-145)
[2017-07-14] MEDS ORDERED: CLIN300C5 PO (14:43)
[2017-07-29] MEDS ORDERED: IBUP1TAB7 PO (11:09)
== END 2017-07-14 14:56 | disposition home or self-care (01) ==
LOC: NEPD 12:04
DX: R10.9 Unspecified abdominal pain (principal); H66.91 Otitis media, unspecified, right ear; H91.91 Unspecified hearing loss, right ear; R11.0 Nausea; R19.7 Diarrhea, unspecified; F31.9 Bipolar disorder, unspecified; F20.9 Schizophrenia, unspecified; F17.210 Nicotine dependence, cigarettes, uncomplicated; Z87.442 Personal history of urinary calculi
CPT/HCPCS: 69210; 74176; 80053; 81001; 84703; 85025; 96374; 99285; J2405; J7030

== ENCOUNTER 2017-07-29 17:18 | Emergency (ER) | payer MEDICAID ==
[~2017-07-29 17:18] MED LIST changes: +CLIN300C5 PO
[2017-07-29 17:22] VITALS: BP 130/60; PULSE 95; RESP 18; TEMP 98.2; O2SAT 99
[2017-07-30] MEDS ORDERED: OSEL75 PO (19:02)
== END 2017-07-29 17:29 | disposition left against medical advice (07) ==
LOC: NED 17:18
DX: Z04.3 Encounter for examination and observation following other accident (principal); Z53.21 Procedure and treatment not carried out due to patient leaving prior to being seen by health care provider
CPT/HCPCS: 99281

== ENCOUNTER 2017-07-30 17:03 | Emergency (ER) | payer MEDICAID ==
[~2017-07-30] VITALS: Ht 160 cm; Wt 101.5 kg
[2017-07-30 17:04] VITALS: BP 122/58; PULSE 92; RESP 20; TEMP 98.9; O2SAT 98
--- NOTE | 2017-07-30 17:54 | RADRPT ---
EXAM DATE/TIME: 07/30/2017 17:23 [facility] COMPARISON: No previous studies available for comparison. INDICATIONS : Shortness of breath. MEDICAL HISTORY : Asthma. SURGICAL HISTORY : None. ENCOUNTER: Initial ACUITY: 2 days PAIN SCORE: 10/10 LOCATION: Bilateral chest. FINDINGS: The cardiac silhouette is enlarged in transverse diameter. The lungs are free of acute parenchymal op acity. No effusions are identified. Osseous structures are intact. CONCLUSION: Cardiomegaly. No acute cardiopulmonary disease. Tho Otoole MD on July 30, 2017 at 17:51 Board Certified Radiologist. This report was verified electronically.
[2017-07-30] MEDS ORDERED: OSEL75 PO (19:02)
--- NOTE | 2017-07-30 19:03 | PD ---
HPI Chief Complaint: Cold / Flu Symptoms Time Seen by Provider: 18:46 Travel History International Travel<30 days: No Contact w/Intl Traveler<30days: No Traveled to known affect area: No History of Present Illness HPI 37 yo F c/o rhinorrhea, cough, subjective fever and chills for approximately 2 days. pt fell while disassembling her [place] tree causing severe back pain which has not improved with ibuprofen. pt denies sick contacts. no n/v or diarrhea. no abdominal pain. back pain is moderate and worse with some changes in position. no weakness or paresthesias. no incontinence. no chest pain or shortness of breath. URI symptom onset was gradual. PFSH Past Medical History Arthritis: Yes Bipolar Disorder: Yes Anxiety: Yes Depression: Yes Cancer: No Cardiovascular Problems: No Diabetes: No Diminished Hearing: No Endocrine: No Gastrointestinal Disorders: No Genitourinary: No Headaches: No Immune Disorder: No Musculoskeletal: No Neurologic: No Psychiatric: Yes (Reports treatment for bipolar disorder since age 13) Reproductive: No Respiratory: No Schizophrenia: Yes Seizures: No Tetanus Vaccination: < 5 Years Influenza Vaccination: No ?: Unknown : 8 Para: 5 Past Surgical History Surgical History: No Previous Surgery Social History Alcohol Use: No Tobacco Use: Yes (3-4 cigarretes/day) Substance Use: Yes (etoh) Allergies-Medications (Allergen,Severity, Reaction): Coded Allergies: erythromycin base (Verified Allergy, Severe, Anaphylaxis, 07/30/17) penicillin G (Verified Allergy, Severe, Anaphylaxis, 07/30/17) clindamycin (Verified Allergy, Intermediate, Nausea/Vomiting, 07/30/17) naproxen (Verified Allergy, Intermediate, Hives, 07/30/17) Sulfa (Sulfonamide Antibiotics) (Verified Allergy, Unknown, 07/30/17) Reported Meds & Prescriptions Reported Meds & Active Scripts Active Tamiflu (Oseltamivir Phosphate) 75 Mg Cap 75 Mg PO BID 7 Days Review of Systems Except as stated in HPI: all other systems reviewed are Neg Physical Exam Narrative GENERAL: 37 yo F, mild distress 2/2 pain, pleasant SKIN: Warm and dry. HEAD: Atraumatic. Normocephalic. EYES: Pupils equal and round. No scleral icterus. No injection or drainage. ENT: No nasal bleeding or discharge. Mucous membranes pink and moist. TM on right appears to have chronic changes without erythema or effusion. L TM normal. posterior oropharynx pink without erythema, exudate, deviation or soft palate NECK: Trachea midline. No JVD. no anterior neck adenopathy. CARDIOVASCULAR: Regular rate and rhythm. RESPIRATORY: No accessory muscle use. Clear to auscultation. Breath sounds equal bilaterally. GASTROINTESTINAL: Abdomen soft, non-tender, nondistended. Hepatic and splenic margins not palpable. MUSCULOSKELETAL: Extremities without clubbing, cyanosis, or edema. No obvious deformities. no focus of spinal tenderness, NEUROLOGICAL: Awake and alert. No obvious cranial nerve deficits. Motor grossly within normal limits. Five out of 5 muscle strength in the arms and legs. Normal speech. PSYCHIATRIC: Appropriate mood and affect; insight and judgment normal. Data Data Last Documented VS Vital Signs Date Time Temp Pulse Resp B/P (MAP) Pulse Ox O2 Delivery O2 Flow Rate FiO2 07/30/17 19:28 07/30/17 18:49 99 Room Air 07/30/17 17:04 98.9 92 20 Vital Signs Date Time Temp Pulse Resp B/P (MAP) Pulse Ox O2 Delivery O2 Flow Rate FiO2 07/30/17 19:28 07/30/17 18:49 99 Room Air 07/30/17 17:04 98.9 92 20 122/58 (79) 98 Room Air Orders Orders Chest, Pa & Lat (07/30/17 ) Oseltamivir (Tamiflu) (07/30/17 19:15) Ed Discharge Order (07/30/17 19:01) [facility] Medical Decision Making Medical Screen Exam Complete: Yes Emergency Medical Condition: Yes Medical Record Reviewed: Yes Differential Diagnosis influenza, uri, allergies, strep pharyngitis, pna, fracture, contusion Narrative Course URI symptoms c/w with non-specific viral URI or potentially influenza and given apparent high rate of flse negative influenza assays empiric treatment will be offered here. back pain appears a combination of pain from fall plus hyperalgesic state and/ or potentially opioid seeking conduct. pt understands that some pain is unavoidable and that risk of opioid dependence and addiction precludes their use for nature of patient's complaint today. pt also educated regarding institutional policy and national effort to curb opioid dependence. Diagnosis Primary Impression: URI (upper respiratory infection) Qualified Codes: J06.9 - Acute upper respiratory infection, unspecified Additional Impressions: Fall Qualified Codes: W19.XXXA - Unspecified fall, initial encounter Back pain Qualified Codes: M54.6 - Pain in thoracic spine Med/Other Pt SpecificInfo: Prescription(s) given Scripts Oseltamivir (Tamiflu) 75 Mg Cap 75 MG PO BID for Mgmt Viral Infection for 7 Days, #14 CAP 0 Refills Prov: Salvador Canales MD 07/30/17 Disposition: 01 DISCHARGE HOME Condition: Stable Salvador Canales MD Jul 30, 2017 19:03
[2017-07-30] MEDS ORDERED: OSELTAMIVIR PHOSPHATE 75 MG CAP PO ONE (19:15)
== END 2017-07-30 19:28 | disposition home or self-care (01) ==
LOC: NEPD 17:03
DX: J06.9 Acute upper respiratory infection, unspecified (principal); M54.6 Pain in thoracic spine; F17.210 Nicotine dependence, cigarettes, uncomplicated; W19.XXXA Unspecified fall, initial encounter
CPT/HCPCS: 71046; 99283

== ENCOUNTER 2017-08-25 02:32 | Emergency (ER) | payer MEDICAID ==
[~2017-08-25] VITALS: Ht 162.6 cm; Wt 104.5 kg
[~2017-08-25 02:32] MED LIST changes: -CLIN300C5 PO; -CYCL10TA PO; -NABU1TAB37 PO
[2017-08-25 02:35] VITALS: BP 132/58; PULSE 90; RESP 16; TEMP 98; O2SAT 99
[2017-08-25] MEDS ORDERED: SODIUM CHLOR 0.9% 1000 ML INJ 1,000 ML IV SCH (02:55)
[2017-08-25] MEDS ORDERED: CLON.5 PO (02:58)
[2017-08-25] MEDS ORDERED: CELE40TA PO (02:58)
[2017-08-25] MEDS ORDERED: SODIUM CHLORIDE 0.9% FLUSH 10 ML FLUSH IV FLUSH PRN (03:00)
[2017-08-25] MEDS ORDERED: ONDANSETRON HCL 4 MG/2 ML VIAL IVP ONE (03:00)
[2017-08-25] MEDS ORDERED: MORPHINE SULFATE 4 MG/ML INJ IV PUSH ONE (03:00)
--- NOTE | 2017-08-25 03:03 | PD ---
HPI Chief Complaint: Abdominal Pain Time Seen by Provider: 02:47 Travel History International Travel<30 days: No Contact w/Intl Traveler<30days: No Traveled to known affect area: No History of Present Illness HPI The patient is a 37-year-old female who presents to the emergency department for lower abdominal pain. The patient states she has a 3 week history of lower abdominal pain which has progressed over the last 24 hours. The pain is located lower aspect of the abdomen, nonradiating, associated with one episode of urinary and fecal incontinence. The patient states she was sleeping and when she awakened she has small amount of loose stool as well as urine in the bed. She does have a history of stress incontinence with coughing. She does have a history of 6 previous vaginal deliveries, denies any history of previous abdominal surgeries. The patient is scheduled for possible tubal ligation in the future. She also was referred to see a school services officer , however, is waiting for her paperwork to see a school services officer on an outpatient basis. She also notes mild epigastric pain, denies any current nausea or vomiting. She denies any associated dysuria, frequency, or urgency. She just finished her last menstrual cycle. Symptoms are moderate without any alleviating or exacerbating factors. PFSH Past Medical History Arthritis: Yes Bipolar Disorder: Yes Anxiety: Yes Depression: Yes Cancer: No Cardiovascular Problems: No Diabetes: No Diminished Hearing: No Endocrine: No Gastrointestinal Disorders: No Genitourinary: No Headaches: No Immune Disorder: No Kidney Stones: Yes Musculoskeletal: No Neurologic: No Psychiatric: Yes (Reports treatment for bipolar disorder since age 13) Reproductive: No Respiratory: No Schizophrenia: Yes (effective) Seizures: No Tetanus Vaccination: < 5 Years Influenza Vaccination: No ?: Not LMP: 08/24/17 : 8 Para: 5 Social History Alcohol Use: No Tobacco Use: Yes (1PPD) Substance Use: No Allergies-Medications (Allergen,Severity, Reaction): Coded Allergies: erythromycin base (Verified Allergy, Severe, Anaphylaxis, 08/09/17) penicillin G (Verified Allergy, Severe, Anaphylaxis, 08/09/17) clindamycin (Verified Allergy, Intermediate, Nausea/Vomiting, 08/09/17) naproxen (Verified Allergy, Intermediate, Hives, 08/09/17) Sulfa (Sulfonamide Antibiotics) (Verified Allergy, Unknown, 1/15/18) Reported Meds & Prescriptions Reported Meds & Active Scripts Active Reported Celexa (Citalopram Hydrobromide) 40 Mg Tab 40 Mg PO DAILY Klonopin (Clonazepam) 0.5 Mg Tab 0.5 Mg PO TID Review of Systems Except as stated in HPI: all other systems reviewed are Neg General / Constitutional: No: Fever Cardiovascular: No: Chest Pain or Discomfort Respiratory: No: Shortness of Breath Gastrointestinal: Positive: Diarrhea, Abdominal Pain, No: Nausea, Vomiting Genitourinary: Positive: Incontinence, No: Dysuria Neurologic: No: Dizziness Physical Exam Narrative GENERAL: Awake, alert, nontoxic-appearing 37-year-old female who appears her stated age and is in no acute respiratory distress. SKIN: Focused skin assessment warm/dry. HEAD: Atraumatic. Normocephalic. EYES: Pupils equal and round. No scleral icterus. No injection or drainage. ENT: No nasal bleeding or discharge. Mucous membranes pink and moist. NECK: Trachea midline. No JVD. CARDIOVASCULAR: Regular rate and rhythm. No murmur appreciated. RESPIRATORY: No accessory muscle use. Clear to auscultation. Breath sounds equal bilaterally. GASTROINTESTINAL: Abdomen soft, obese, mild tenderness epigastrium and left lower quadrant suprapubic area. Rectal: Exam was performed in the presence of a female nurse. No gross blood. Positive tone. MUSCULOSKELETAL: No obvious deformities. No clubbing. No cyanosis. No edema. NEUROLOGICAL: Awake and alert. No obvious cranial nerve deficits. Motor grossly within normal limits. Normal speech. PSYCHIATRIC: Appropriate mood and affect; insight and judgment normal. Data Data Last Documented VS Vital Signs Date Time Temp Pulse Resp B/P (MAP) Pulse Ox O2 Delivery O2 Flow Rate FiO2 08/25/17 03:49 88 20 98 Room Air 08/25/17 02:35 98.0 Orders Orders Complete Blood Count With Diff (08/25/17 02:55) Comprehensive Metabolic Panel (08/25/17 02:55) Lipase (08/25/17 02:55) Urinalysis - C+S If Indicated (08/25/17 02:55) Ct Abd/Pel W/O Iv Contrast (08/25/17 02:55) Iv Access Insert/Monitor (08/25/17 02:55) Ecg Monitoring (08/25/17 02:55) Oximetry (08/25/17 02:55) Morphine Inj (Morphine Inj) (08/25/17 03:00) Ondansetron Inj (Zofran Inj) (08/25/17 03:00) Sodium Chlor 0.9% 1000 Ml Inj (Ns 1000 M (08/25/17 02:55) Sodium Chloride 0.9% Flush (Ns Flush) (08/25/17 03:00) Ed Urine Pregnancytest Poc (08/25/17 02:55) Dicyclomine (Bentyl) (08/25/17 03:45) Ed Discharge Order (08/25/17 05:02) Labs Laboratory Tests Test 08/25/17 03:20 08/25/17 04:00 White Blood Count 13.9 TH/MM3 Red Blood Count 3.98 MIL/MM3 Hemoglobin 11.8 GM/DL Hematocrit 34.7 % Mean Corpuscular Volume 87.1 FL Mean Corpuscular Hemoglobin 29.7 PG Mean Corpuscular Hemoglobin Concent 34.1 % Red Cell Distribution Width 14.6 % Platelet Count 294 TH/MM3 Mean Platelet Volume 9.4 FL Neutrophils (%) (Auto) 58.0 % Lymphocytes (%) (Auto) 32.8 % Monocytes (%) (Auto) 5.4 % Eosinophils (%) (Auto) 3.1 % Basophils (%) (Auto) 0.7 % Neutrophils # (Auto) 8.1 TH/MM3 Lymphocytes # (Auto) 4.6 TH/MM3 Monocytes # (Auto) 0.7 TH/MM3 Eosinophils # (Auto) 0.4 TH/MM3 Basophils # (Auto) 0.1 TH/MM3 CBC Comment DIFF FINAL Differential Comment Blood Urea Nitrogen 12 MG/DL Creatinine 0.81 MG/DL Random Glucose 97 MG/DL Total Protein 6.9 GM/DL Albumin 3.4 GM/DL Calcium Level 8.3 MG/DL Alkaline Phosphatase 105 U/L Aspartate Amino Transf (AST/SGOT) 16 U/L Alanine Aminotransferase (ALT/SGPT) 16 U/L Total Bilirubin 0.2 MG/DL Sodium Level 143 MEQ/L Potassium Level 3.8 MEQ/L Chloride Level 112 MEQ/L Carbon Dioxide Level 21.8 MEQ/L Anion Gap 9 MEQ/L Estimat Glomerular Filtration Rate 79 ML/MIN Lipase 93 U/L Urine Color YELLOW Urine Turbidity HAZY Urine pH 5.5 Urine Specific [place] 1.011 Urine Protein NEG mg/dL Urine Glucose (UA) NEG mg/dL Urine Ketones NEG mg/dL Urine Occult Blood SMALL Urine Nitrite NEG Urine Bilirubin NEG Urine Urobilinogen LESS THAN 2.0 MG/DL Urine Leukocyte Esterase NEG Urine RBC 1 /hpf Urine WBC 1 /hpf Urine Squamous Epithelial Cells 8 /hpf Urine Bacteria OCC /hpf Urine Mucus FEW /lpf Microscopic Urinalysis Comment CULT NOT INDICATED MDM Medical Decision Making Medical Screen Exam Complete: Yes Emergency Medical Condition: Yes Medical Record Reviewed: Yes Interpretation(s) CT abdomen and pelvis without contrast revealed no acute findings. Calcified gallstones in tiny nonobstructing cackles right kidney. No evidence of diverticulitis or appendicitis. Last Impressions Abdomen/Pelvis CT 08/25/17 0255 Signed Impressions: Service Date/Time: Friday, August 25, 2017 03:26 - CONCLUSION: 1. No acute findings. Again seen are calcified gallstones and tiny nonobstructing calculus in the right kidney. No evidence of diverticulitis or appendicitis. Hill Cotto MD Laboratory Tests Test 08/25/17 03:20 08/25/17 04:00 White Blood Count 13.9 TH/MM3 Red Blood Count 3.98 MIL/MM3 Hemoglobin 11.8 GM/DL Hematocrit 34.7 % Mean Corpuscular Volume 87.1 FL Mean Corpuscular Hemoglobin 29.7 PG Mean Corpuscular Hemoglobin Concent 34.1 % Red Cell Distribution Width 14.6 % Platelet Count 294 TH/MM3 Mean Platelet Volume 9.4 FL Neutrophils (%) (Auto) 58.0 % Lymphocytes (%) (Auto) 32.8 % Monocytes (%) (Auto) 5.4 % Eosinophils (%) (Auto) 3.1 % Basophils (%) (Auto) 0.7 % Neutrophils # (Auto) 8.1 TH/MM3 Lymphocytes # (Auto) 4.6 TH/MM3 Monocytes # (Auto) 0.7 TH/MM3 Eosinophils # (Auto) 0.4 TH/MM3 Basophils # (Auto) 0.1 TH/MM3 CBC Comment DIFF FINAL Differential Comment Blood Urea Nitrogen 12 MG/DL Creatinine 0.81 MG/DL Random Glucose 97 MG/DL Total Protein 6.9 GM/DL Albumin 3.4 GM/DL Calcium Level 8.3 MG/DL Alkaline Phosphatase 105 U/L Aspartate Amino Transf (AST/SGOT) 16 U/L Alanine Aminotransferase (ALT/SGPT) 16 U/L Total Bilirubin 0.2 MG/DL Sodium Level 143 MEQ/L Potassium Level 3.8 MEQ/L Chloride Level 112 MEQ/L Carbon Dioxide Level 21.8 MEQ/L Anion Gap 9 MEQ/L Estimat Glomerular Filtration Rate 79 ML/MIN Lipase 93 U/L Urine Color YELLOW Urine Turbidity HAZY Urine pH 5.5 Urine Specific [place] 1.011 Urine Protein NEG mg/dL Urine Glucose (UA) NEG mg/dL Urine Ketones NEG mg/dL Urine Occult Blood SMALL Urine Nitrite NEG Urine Bilirubin NEG Urine Urobilinogen LESS THAN 2.0 MG/DL Urine Leukocyte Esterase NEG Urine RBC 1 /hpf Urine WBC 1 /hpf Urine Squamous Epithelial Cells 8 /hpf Urine Bacteria OCC /hpf Urine Mucus FEW /lpf Microscopic Urinalysis Comment CULT NOT INDICATED Differential Diagnosis Differential diagnosis includes diverticulitis, UTI, pyelonephritis, ectopic , PID, cervicitis, atypical appendicitis, cauda equina syndrome. Narrative Course IV was established, labs are drawn and sent, and the patient was placed on cardiac telemetry monitoring and continuous pulse oximetry monitoring. The patient was administered morphine, Zofran, and IV fluids. Bedside UA test was obtained and UA was sent to lab. CT of the abdomen and pelvis was obtained. UA is unremarkable. White count is mildly elevated, however, LFTs are unremarkable. CT of the abdomen and pelvis reveals no acute findings. The patient has a follow-up appointment with Dr. Lopez for possible Pap smear and future tubal ligation, also has a future appointment with GI for colonoscopy. She is stable for outpatient follow-up. Diagnosis Primary Impression: Abdominal pain Qualified Codes: R10.84 - Generalized abdominal pain Patient Instructions: General Instructions Additional Instructions: Follow-up with your primary physician. Please provide the patient a copy of her CT results and lab results at discharge. Return if symptoms worsen or progress. Med/Other Pt SpecificInfo: No Change to Meds Disposition: 01 DISCHARGE HOME Condition: Stable James Al MD Aug 25, 2017 03:03
[2017-08-25 03:08] VITALS: RESP 16; O2SAT 98
[2017-08-25 03:18] VITALS: BP 119/55; PULSE 86; RESP 20; O2SAT 98
--- NOTE | 2017-08-25 03:36 | RADRPT ---
EXAM DATE/TIME: 08/25/2017 03:26 [facility] COMPARISON: No previous studies available for comparison. INDICATIONS : Lower abdomen pain today. ORAL CONTRAST: No oral contrast ingested. RADIATION DOSE: 13.75 CTDIvol (mGy) MEDICAL HISTORY : Renal calculi. SURGICAL HISTORY : None. ENCOUNTER: Initial ACUITY: 1 day PAIN SCALE: 7/10 LOCATION: Bilateral lower quadrant TECHNIQUE: Volumetric scanning of the abdomen and pelvis was performed. Using automated exposure control and ad justment of the mA and/or kV according to patient size, radiation dose was kept as low as reasonably achievable to obtain optimal diagnostic quality images. DICOM format image data is available electro nically for review and comparison. FINDINGS: Linear scarring right lung base. Left lung base is clear. No acute findings in the liver, spleen, adrenals, kidneys or pancreas. Tiny nonobstructing lower pole right renal calculus. Numerous calcified gallstones. No biliary ductal dilatation. No bowel obstruction. No free fluid or free air. No adenopathy. CONCLUSION: 1. No acute findings. Again seen are calcified gallstones and tiny nonobstructing calculus in the rig ht kidney. No evidence of diverticulitis or appendicitis. Hill Cotto MD on August 25, 2017 at 3:31 Board Certified Radiologist. This report was verified electronically.
[2017-08-25] MEDS ORDERED: DICYCLOMINE HCL 10 MG CAP PO ONE (03:45)
[2017-08-25 03:49] VITALS: PULSE 88; RESP 20; O2SAT 98
[2017-08-25 03:53] LABS: AUTOMATED NEUTROPHIL # 8.1 TH/MM3 (1.8-7.7); BASOPHIL # 0.1 TH/MM3 (0-0.2); BASOPHIL % 0.7 % (0.0-2.0); EOSINOPHIL # 0.4 TH/MM3 (0-0.4); EOSINOPHIL % 3.1 % (0.0-4.0); HEMATOCRIT 34.7 % (35.0-46.0); HEMOGLOBIN 11.8 GM/DL (11.6-15.3); LYMPH % 32.8 % (9.0-44.0); LYMPHOCYTE # 4.6 TH/MM3 (1.0-4.8); MEAN CELL VOLUME 87.1 FL (80.0-100.0); MEAN CORPUSCULAR HEMOGLOBIN 29.7 PG (27.0-34.0); MEAN CORPUSCULAR HGB CONC 34.1 % (32.0-36.0); MEAN PLATELET VOLUME 9.4 FL (7.0-11.0); MONO % 5.4 % (0.0-8.0); MONOCYTE # 0.7 TH/MM3 (0-0.9); PLATELET COUNT 294 TH/MM3 (150-450); RED BLOOD COUNT 3.98 MIL/MM3 (4.00-5.30); RED CELL DISTRIBUTION WIDTH 14.6 % (11.6-17.2); WHITE BLOOD COUNT 13.9 TH/MM3 (4.0-11.0)
[2017-08-25 03:55] LABS: ALKALINE PHOSPHATASE 105 U/L (45-117); TOTAL BILIRUBIN ADULT 0.2 MG/DL (0.2-1.0); TOTAL PROTEIN 6.9 GM/DL (6.4-8.2)
[2017-08-25 04:07] LABS: ALBUMIN 3.4 GM/DL (3.4-5.0); ALT (GPT) 16 U/L (10-53); AST (GOT) 16 U/L (15-37); BICARBONATE 21.8 MEQ/L (21.0-32.0); BLOOD UREA NITROGEN 12 MG/DL (7-18); CALCIUM 8.3 MG/DL (8.5-10.1); CHLORIDE 112 MEQ/L (98-107); CREATININE 0.81 MG/DL (0.50-1.00); GLOMERULAR FILTRATION RATE 79 ML/MIN (>89); GLUCOSE,RANDOM 97 MG/DL (74-106); LIPASE 93 U/L (73-393); SODIUM (NA) 143 MEQ/L (136-145)
[2017-08-25 04:49] LABS: BACTERIA, URINE OCC /hpf; BILIRUBIN, URINE NEG (NEG); BLOOD, URINE SMALL (NEG); GLUCOSE,URINE NEG (NEG); KETONE, URINE NEG (NEG); MUCUS URINE FEW /lpf (OCC); NITRITE,URINE NEG (NEG); PH, URINE 5.5 (5.0-8.5); SQUAMOUS EPITHELIAL CELL URINE 8 /hpf (0-5); URINE COLOR YELLOW (YELLW/STRAW); URINE LEUKOCYTE ESTERASE NEG (NEG)
[2017-08-25 05:15] VITALS: BP 141/64
[2017-08-25] MEDS ORDERED: NORC5TAB PO (05:19)
[2017-08-31] MEDS ORDERED: DOXY1TAB PO (14:22)
[2017-08-31] MEDS ORDERED: VITA500C18 PO (14:22)
== END 2017-08-25 05:30 | disposition home or self-care (01) ==
LOC: NEPE 02:32
DX: R10.84 Generalized abdominal pain (principal); K80.20 Calculus of gallbladder without cholecystitis without obstruction; F31.9 Bipolar disorder, unspecified; F41.9 Anxiety disorder, unspecified; F17.200 Nicotine dependence, unspecified, uncomplicated
CPT/HCPCS: 74176; 80053; 81001; 83690; 84703; 85025; 96361; 96374; 96375; 99285; J2270; J2405; J7030

== ENCOUNTER 2017-08-29 01:08 | Emergency (ER) | payer MEDICAID ==
[~2017-08-29] VITALS: Ht 160 cm; Wt 85.0 kg
[~2017-08-29 01:08] MED LIST changes: +CELE40TA PO; +CLON.5 PO; -IBUP1TAB7 PO; +NORC5TAB PO
[2017-08-29 01:10] VITALS: BP 106/91; PULSE 125; RESP 18; TEMP 98.3; O2SAT 99
[2017-08-29] MEDS ORDERED: SODIUM CHLOR 0.9% 1000 ML INJ 1,000 ML IV SCH (01:25)
[2017-08-29] MEDS ORDERED: MORPHINE SULFATE 2 MG/ML INJ IV PUSH ONE (01:30)
[2017-08-29] MEDS ORDERED: SODIUM CHLORIDE 0.9% FLUSH 10 ML FLUSH IV FLUSH PRN (01:30)
[2017-08-29] MEDS ORDERED: DICYCLOMINE HCL 10 MG CAP PO ONE (01:30)
--- NOTE | 2017-08-29 01:32 | PD ---
HPI Chief Complaint: Abdominal Pain Time Seen by Provider: 01:18 Travel History International Travel<30 days: No Contact w/Intl Traveler<30days: No Traveled to known affect area: No History of Present Illness HPI 37-year-old female here for evaluation of abdominal pain, diarrhea, and dental pain. The patient reports ongoing abdominal pain and diarrhea for the last 2 months. Pain is periumbilical and in her pelvis, described as cramping, moderate to severe, constant, worse with movements. She was seen in the emergency department on 08/25 for evaluation of these symptoms and chart review shows that she had a slight leukocytosis of 13.[address] abdomen pelvis that showed calcified gallstones and tiny nonobstructing calculus in the right kidney , no acute findings. Patient reports left upper tooth pain which she has seen a dentist for and was started on clindamycin about a week ago. She states her diarrhea started 2 months ago and has not been changed since starting the clindamycin. She describes sharp pain in her left cheek and jaw. No fevers. No vomiting. No respiratory difficulty. She is scheduled to have a bilateral tubal ligation with android framework developer Dr. Lopez and reports taht she also has a retirement administrator whom she has not yet followed with. No dysuria. No vaginal bleeding or discharge. PFSH Past Medical History Arthritis: Yes Bipolar Disorder: Yes Anxiety: Yes Depression: Yes Cancer: No Cardiovascular Problems: No Diabetes: No Diminished Hearing: No Endocrine: No Gastrointestinal Disorders: No Genitourinary: No Headaches: No Immune Disorder: No Implanted Vascular Access Dvce: No Kidney Stones: Yes Musculoskeletal: No Neurologic: No Psychiatric: Yes (Reports treatment for bipolar disorder since age 13) Reproductive: No Respiratory: No Immunizations Current: Yes Schizophrenia: Yes (effective) Seizures: No Tetanus Vaccination: Unknown Influenza Vaccination: No ?: Unknown LMP: 08/27/17 : 8 Para: 5 Past Surgical History Other Surgery: No Social History Alcohol Use: No Tobacco Use: Yes (1PPD) Substance Use: No Allergies-Medications (Allergen,Severity, Reaction): Coded Allergies: erythromycin base (Verified Allergy, Severe, Anaphylaxis, 08/29/17) penicillin G (Verified Allergy, Severe, Anaphylaxis, 08/29/17) clindamycin (Verified Allergy, Intermediate, Nausea/Vomiting, 08/29/17) naproxen (Verified Allergy, Intermediate, Hives, 08/29/17) Sulfa (Sulfonamide Antibiotics) (Verified Allergy, Unknown, 08/29/17) Reported Meds & Prescriptions Reported Meds & Active Scripts Active Reported Clindamycin (Clindamycin HCl) 300 Mg Cap 300 Mg PO TID Celexa (Citalopram Hydrobromide) 40 Mg Tab 40 Mg PO DAILY Klonopin (Clonazepam) 0.5 Mg Tab 0.5 Mg PO TID Review of Systems Except as stated in HPI: all other systems reviewed are Neg Physical Exam Narrative GENERAL: Well-developed, well-nourished, overweight, no apparent distress. SKIN: Focused skin assessment warm/dry. HEAD: Atraumatic. Normocephalic. EYES: Pupils equal and round. No scleral icterus. No injection or drainage. ENT: Mucous membranes pink and moist. Severely decayed left upper canine. No intraoral swelling. No trismus. No drooling or stridor. No submandibular swelling or induration. NECK: Trachea midline. No JVD. CARDIOVASCULAR: Regular rate and rhythm. RESPIRATORY: No accessory muscle use. Clear to auscultation. Breath sounds equal bilaterally. GASTROINTESTINAL: Abdomen soft, nondistended. Mild diffuse tenderness without peritoneal signs. Normal bowel sounds. FIBER PICKER: Exam performed in the presence of a female nurse. Normal external genitalia. Normal appearing cervix. Scant/whitish/physiologic/non-foul- smelling vaginal discharge. No CMT. No adnexal masses or tenderness. MUSCULOSKELETAL: No obvious deformities. No clubbing. No cyanosis. No edema. NEUROLOGICAL: Awake and alert. No obvious cranial nerve deficits. Motor grossly within normal limits. Normal speech. PSYCHIATRIC: Appropriate mood and affect; insight and judgment normal. Data Data Last Documented VS Vital Signs Date Time Temp Pulse Resp B/P (MAP) Pulse Ox O2 Delivery O2 Flow Rate FiO2 08/29/17 02:52 97 16 122/61 (81) 97 Room Air 08/29/17 01:10 98.3 Orders Orders Beta Hcg (Quant/Titer) (08/29/17 01:25) Complete Blood Count With Diff (08/29/17 01:25) Comprehensive Metabolic Panel (08/29/17 01:25) Lipase (08/29/17 01:25) Prothrombin Time / Inr (Pt) (08/29/17 01:25) Act Partial Throm Time (Ptt) (08/29/17 01:25) Urinalysis - C+S If Indicated (08/29/17 01:25) Iv Access Insert/Monitor (08/29/17 01:25) Ecg Monitoring (08/29/17 01:25) Oximetry (08/29/17 01:25) Sodium Chlor 0.9% 1000 Ml Inj (Ns 1000 M (08/29/17 01:25) Sodium Chloride 0.9% Flush (Ns Flush) (08/29/17 01:30) Dicyclomine (Bentyl) (08/29/17 01:30) Morphine Inj (Morphine Inj) (08/29/17 01:30) Gc And Chlamydia Pcr (08/29/17 01:25) Wet Prep Profile (08/29/17 01:25) Drug Screen, Random Urine (08/29/17 02:09) Alcohol (Ethanol) (08/29/17 01:40) Ketorolac Inj (Toradol Inj) (08/29/17 03:00) Labs Laboratory Tests Test 08/29/17 01:40 08/29/17 02:15 08/29/17 02:35 White Blood Count 13.1 TH/MM3 Red Blood Count 3.98 MIL/MM3 Hemoglobin 12.0 GM/DL Hematocrit 34.5 % Mean Corpuscular Volume 86.6 FL Mean Corpuscular Hemoglobin 30.2 PG Mean Corpuscular Hemoglobin Concent 34.9 % Red Cell Distribution Width 14.3 % Platelet Count 312 TH/MM3 Mean Platelet Volume 8.9 FL Neutrophils (%) (Auto) 51.9 % Lymphocytes (%) (Auto) 38.8 % Monocytes (%) (Auto) 5.2 % Eosinophils (%) (Auto) 3.1 % Basophils (%) (Auto) 1.0 % Neutrophils # (Auto) 6.8 TH/MM3 Lymphocytes # (Auto) 5.1 TH/MM3 Monocytes # (Auto) 0.7 TH/MM3 Eosinophils # (Auto) 0.4 TH/MM3 Basophils # (Auto) 0.1 TH/MM3 CBC Comment DIFF FINAL Differential Comment Prothrombin Time 9.8 SEC Prothromb Time International Ratio 1.0 RATIO Activated Partial Thromboplast Time 25.8 SEC Blood Urea Nitrogen 9 MG/DL Creatinine 0.84 MG/DL Random Glucose 128 MG/DL Total Protein 6.8 GM/DL Albumin 3.1 GM/DL Calcium Level 8.3 MG/DL Alkaline Phosphatase 108 U/L Aspartate Amino Transf (AST/SGOT) 32 U/L Alanine Aminotransferase (ALT/SGPT) 22 U/L Total Bilirubin 0.3 MG/DL Sodium Level 146 MEQ/L Potassium Level 4.6 MEQ/L Chloride Level 115 MEQ/L Carbon Dioxide Level 23.2 MEQ/L Anion Gap 8 MEQ/L Estimat Glomerular Filtration Rate 75 ML/MIN Lipase 71 U/L Human Chorionic Gonadotropin, Quant LESS THAN 1 MIU/ML Ethyl Alcohol Level LESS THAN 3 MG/DL Clue Cells (Wet Prep) NONE SEEN Vaginal Trichomonas (Wet Prep) NONE SEEN Vaginal Yeast (Wet Prep) NONE SEEN Urine Color YELLOW Urine Turbidity CLEAR Urine pH 5.5 Urine Specific [place] 1.008 Urine Protein NEG mg/dL Urine Glucose (UA) NEG mg/dL Urine Ketones NEG mg/dL Urine Occult Blood NEG Urine Nitrite NEG Urine Bilirubin NEG Urine Urobilinogen LESS THAN 2.0 MG/DL Urine Leukocyte Esterase NEG Urine WBC 1 /hpf Urine Squamous Epithelial Cells 1 /hpf Urine Bacteria RARE /hpf Microscopic Urinalysis Comment CULT NOT INDICATED Urine Opiates Screen NEG Urine Barbiturates Screen NEG Urine Amphetamines Screen NEG Urine Benzodiazepines Screen NEG Urine Cocaine Screen NEG Urine Cannabinoids Screen POS MDM Medical Decision Making Medical Screen Exam Complete: Yes Emergency Medical Condition: Yes Differential Diagnosis Chronic abdominal pain, diarrhea, colitis, diverticulitis, appendicitis, UTI, cystitis, BV, Trichomonas, PID, Narrative Course Vital signs reviewed. CBC: WBC 13.1, hemoglobin 12, hematocrit 34.5, platelets 312. CMP is remarkable for sodium 146, chloride 115, random glucose 128. Lipase is 71. Beta hCG is negative. UA is not suggestive of UTI. Wet prep is negative for yeast, negative for clue cells, negative for Trichomonas. The patient has had 5 [address] abdomen pelvis is performed at this facility since , the first of which showed a 2 mm UVJ stone which has since passed. Her most recent CT abdomen pelvis was performed 4 days ago and showed gallstones, no acute abnormality. Based on the patient's clinical exam and laboratory findings, I do not believe that there is no acute intra-abdominal process to warrant CT abdomen pelvis at this time. The patient also has dental decay without signs of deep space infection. There is no trismus. No drooling or stridor. She is already on clindamycin and is followed by a dentist. I advised that she follow-up with her dentist for further treatment. Patient also has an appointment with FIBER PICKER doctor John for evaluation for bilateral tubal ligation and states that she has a retirement administrator. I advised that she follow-up with all of her physicians this week for further evaluation. Diagnosis Primary Impression: Chronic abdominal pain Additional Impression: Dental caries Referrals: Retail Asset Protection Specialist 3 days New Car Salesperson 3 days Primary Care Physician 3 days Additional Instructions: Follow-up with your primary care physician, android framework developer, and retirement administrator this week. Return to the emergency department for worsening symptoms or any other concerns. Scripts Dicyclomine (Bentyl) 10 Mg Cap 10 MG PO TID Y for Bowel Management, #20 CAP 0 Refills Prov: Primitivo Quiles MD 08/29/17 Tramadol (Tramadol) 50 Mg Tab 50 MG PO Q6H Y for PAIN, #10 TAB 0 Refills Prov: Primitivo Quiles MD 08/29/17 Disposition: 01 DISCHARGE HOME Condition: Stable Primitivo Quiles MD Aug 29, 2017 01:32
[2017-08-29] MEDS ORDERED: CLIN300C5 PO (01:38)
[2017-08-29 01:46] VITALS: RESP 17; O2SAT 98
[2017-08-29 02:03] LABS: AUTOMATED NEUTROPHIL # 6.8 TH/MM3 (1.8-7.7); BASOPHIL # 0.1 TH/MM3 (0-0.2); EOSINOPHIL # 0.4 TH/MM3 (0-0.4); EOSINOPHIL % 3.1 % (0.0-4.0); HEMATOCRIT 34.5 % (35.0-46.0); LYMPH % 38.8 % (9.0-44.0); LYMPHOCYTE # 5.1 TH/MM3 (1.0-4.8); MEAN CELL VOLUME 86.6 FL (80.0-100.0); MEAN CORPUSCULAR HEMOGLOBIN 30.2 PG (27.0-34.0); MEAN CORPUSCULAR HGB CONC 34.9 % (32.0-36.0); MEAN PLATELET VOLUME 8.9 FL (7.0-11.0); MONO % 5.2 % (0.0-8.0); MONOCYTE # 0.7 TH/MM3 (0-0.9); NEUT % 51.9 % (16.0-70.0); PLATELET COUNT 312 TH/MM3 (150-450); RED BLOOD COUNT 3.98 MIL/MM3 (4.00-5.30); RED CELL DISTRIBUTION WIDTH 14.3 % (11.6-17.2); WHITE BLOOD COUNT 13.1 TH/MM3 (4.0-11.0)
[2017-08-29 02:09] LABS: PROTHROMBIN TIME - PATIENT 9.8 SEC (9.8-11.6)
[2017-08-29 02:20] LABS: ALKALINE PHOSPHATASE 108 U/L (45-117); TOTAL BILIRUBIN ADULT 0.3 MG/DL (0.2-1.0); TOTAL PROTEIN 6.8 GM/DL (6.4-8.2)
[2017-08-29 02:33] LABS: ALBUMIN 3.1 GM/DL (3.4-5.0); ALT (GPT) 22 U/L (10-53); AST (GOT) 32 U/L (15-37); BICARBONATE 23.2 MEQ/L (21.0-32.0); BLOOD UREA NITROGEN 9 MG/DL (7-18); CALCIUM 8.3 MG/DL (8.5-10.1); CHLORIDE 115 MEQ/L (98-107); CREATININE 0.84 MG/DL (0.50-1.00); GLOMERULAR FILTRATION RATE 75 ML/MIN (>89); GLUCOSE,RANDOM 128 MG/DL (74-106); SODIUM (NA) 146 MEQ/L (136-145)
[2017-08-29 02:52] VITALS: BP 122/61; PULSE 97; RESP 16; O2SAT 97
[2017-08-29] MEDS ORDERED: KETOROLAC TROMETHAMINE 30 MG/ML (IVP) VIAL IV PUSH ONE (03:00)
[2017-08-29 03:41] LABS: BACTERIA, URINE RARE /hpf; BILIRUBIN, URINE NEG (NEG); BLOOD, URINE NEG (NEG); GLUCOSE,URINE NEG (NEG); KETONE, URINE NEG (NEG); NITRITE,URINE NEG (NEG); PH, URINE 5.5 (5.0-8.5); SQUAMOUS EPITHELIAL CELL URINE 1 /hpf (0-5); URINE COLOR YELLOW (YELLW/STRAW); URINE LEUKOCYTE ESTERASE NEG (NEG)
[2017-08-29] MEDS ORDERED: TRAM50TA PO (03:49)
[2017-08-29] MEDS ORDERED: DICY10 PO (03:49)
[2017-08-31] MEDS ORDERED: DOXY1TAB PO (14:22)
[2017-08-31] MEDS ORDERED: VITA500C18 PO (14:22)
[2017-09-03] MEDS ORDERED: IBUP-1129 PO (07:41)
[2017-09-03] MEDS ORDERED: BUSP15TA PO (07:41)
== END 2017-08-29 04:17 | disposition home or self-care (01) ==
LOC: NEPE 01:08
DX: R10.9 Unspecified abdominal pain (principal); G89.29 Other chronic pain; K02.9 Dental caries, unspecified; M19.90 Unspecified osteoarthritis, unspecified site; F31.9 Bipolar disorder, unspecified; F41.9 Anxiety disorder, unspecified; F20.9 Schizophrenia, unspecified; F17.200 Nicotine dependence, unspecified, uncomplicated; Z87.442 Personal history of urinary calculi
CPT/HCPCS: 80053; 80307; 81001; 83690; 84702; 85025; 85610; 85730; 87210; 87491; 87591; 96361; 96374; 96375; 99284; J1885; J2270; J7030

== ENCOUNTER → 2017-08-31 | Outpatient (CLI) | payer MEDICAID ==
[~2017-08-31] MED LIST changes: +BUSP15TA PO; +CLIN300C5 PO; +DICY10 PO; +DOXY1TAB PO; +IBUP-1129 PO; -NORC5TAB PO; +TRAM50TA PO; +VITA500C18 PO
[2017-08-31 15:11] LABS: AUTOMATED NEUTROPHIL # 8.1 TH/MM3 (1.8-7.7); BASOPHIL # 0.1 TH/MM3 (0-0.2); BASOPHIL % 0.4 % (0.0-2.0); EOSINOPHIL # 0.4 TH/MM3 (0-0.4); EOSINOPHIL % 2.7 % (0.0-4.0); HEMATOCRIT 33.3 % (35.0-46.0); HEMOGLOBIN 11.1 GM/DL (11.6-15.3); LYMPH % 32.9 % (9.0-44.0); LYMPHOCYTE # 4.5 TH/MM3 (1.0-4.8); MEAN CELL VOLUME 87.3 FL (80.0-100.0); MEAN CORPUSCULAR HEMOGLOBIN 29.1 PG (27.0-34.0); MEAN CORPUSCULAR HGB CONC 33.4 % (32.0-36.0); MEAN PLATELET VOLUME 8.9 FL (7.0-11.0); MONO % 4.4 % (0.0-8.0); MONOCYTE # 0.6 TH/MM3 (0-0.9); NEUT % 59.6 % (16.0-70.0); PLATELET COUNT 284 TH/MM3 (150-450); RED BLOOD COUNT 3.81 MIL/MM3 (4.00-5.30); WHITE BLOOD COUNT 13.5 TH/MM3 (4.0-11.0)
[2017-08-31 15:18] LABS: BILIRUBIN, URINE NEG (NEG); BLOOD, URINE NEG (NEG); GLUCOSE,URINE NEG (NEG); KETONE, URINE NEG (NEG); NITRITE,URINE NEG (NEG); PH, URINE 5.5 (5.0-8.5); SQUAMOUS EPITHELIAL CELL URINE 3 /hpf (0-5); URINE COLOR YELLOW (YELLW/STRAW); URINE LEUKOCYTE ESTERASE NEG (NEG)
[2017-08-31 15:33] LABS: ALBUMIN 3.2 GM/DL (3.4-5.0); ALT (GPT) 17 U/L (10-53); AST (GOT) 18 U/L (15-37); BICARBONATE 26.8 MEQ/L (21.0-32.0); BLOOD UREA NITROGEN 11 MG/DL (7-18); CALCIUM 7.8 MG/DL (8.5-10.1); CHLORIDE 105 MEQ/L (98-107); CREATININE 0.62 MG/DL (0.50-1.00); GLOMERULAR FILTRATION RATE 107 ML/MIN (>89); GLUCOSE,FASTING 81 MG/DL (74-99); SODIUM (NA) 137 MEQ/L (136-145)
[2017-08-31 15:36] LABS: ALKALINE PHOSPHATASE 100 U/L (45-117); TOTAL BILIRUBIN ADULT 0.3 MG/DL (0.2-1.0); TOTAL PROTEIN 6.6 GM/DL (6.4-8.2)
== END ==
LOC: CPRE 13:55
PROVIDERS: ATTEND Obstetrics & Gynecology Gynecology
DX: Z01.812 Encounter for preprocedural laboratory examination (principal)
CPT/HCPCS: 36415; 80053; 81001; 84703; 85025

== ENCOUNTER → 2017-09-03 | Day surgery (SDC) | payer MEDICAID ==
--- NOTE | 2017-09-01 10:36 | MH ---
cc: XOCHITL GARZA MD, JESSE S. MD DATE OF ADMISSION: 09/03/2017 DATE OF : 1980 REASON FOR ADMISSION She is scheduled for admission on September 03 for tubal ligation. HISTORY OF PRESENT ILLNESS The patient is a 37-year-old white female, 8, para 6, who has completed childbearing and wants to proceed with tubal ligation. PAST MEDICAL HISTORY The patient's medical history is notable for schizoaffective disorder. Otherwise, negative for heart, lung, liver disease, hypertension, diabetes or stroke. MEDICATIONS None. ALLERGIES ERYTHROMYCIN, PENICILLIN, CLINDAMYCIN, NAPROXEN, SULFA. SOCIAL HISTORY Denies alcohol, tobacco or drugs. with good social support. OBSTETRICAL HISTORY As above. Six vaginal deliveries. PAST SURGICAL HISTORY Noncontributory. SOCIAL HISTORY Smokes a pack a day, otherwise negative. FAMILY HISTORY Noncontributory. GYNECOLOGIC HISTORY No STDs or abnormal Pap smears. REVIEW OF SYSTEMS As above. No chest pain, orthopnea, PND. No nausea, vomiting, fever or chills. No vaginal bleeding or discharge. No change in bladder or bowel. Remainder of 14-point review negative. PHYSICAL EXAMINATION VITAL SIGNS: She is afebrile, vital signs stable. Blood pressure is 120/70, height is 5 feet 4 inches, weight 2__ pounds, BMI is 40. GENERAL: Patient is alert and oriented, in no acute distress, no sign of cognitive dysfunction or depression. HEENT: Within normal limits. NECK: Supple. No JVD. CHEST: Clear. HEART: Regular rate and rhythm. ABDOMEN: Soft, nontender. No hepatosplenomegaly. No CVA tenderness. PELVIC: Exam will be detailed under anesthesia. EXTREMITIES: Normal skin without rashes. NEURO: Nonfocal. No DVT signs. ASSESSMENT Patient with multiparity, desires sterilization. We discussed extensively risks, benefits and alternatives to planned procedure including damage to surrounding organs, bleeding, infection, failure rate, irreversibility of procedure and other surgical risks germane to the procedure. At this point she has extensive medication allergies. We will use Flagyl 500 mg IV for prophylaxis. DVT prophylaxis with sequential compression device. With her allergy listed to Naproxen we will most likely avoid Toradol in this setting. Anticipate outpatient procedure. MD PALAK Quach/RHIANNAL /9:52 AM /10:11 AM
[~2017-09-03] VITALS: Ht 162.6 cm; Wt 107.7 kg
[~2017-09-03] MED LIST changes: +CHLORHEXIDINE GLUCONATE 2 % 1 PACK (2 CLOTHS) TOPICAL PRN; -CLIN300C5 PO; +DEXAMETHASONE SOD PHOS 4 MG/ML VIAL IV ONE; +DO NOT ADM ANY ANTICOAGULANT DRUGS PRN; +ESMOLOL HCL 100 MG/10 ML VIAL IV ONE; +FAMOTIDINE 20 MG/2 ML VIAL ONE; +GLYCOPYRROLATE 1 MG/5 ML SYRINGE IV PUSH ONE; +HYDROmorphone HCL PF 2 MG/ML VIAL ONE; +INSULIN HUMAN REGULAR 1,000 UNITS/10 ML VIAL SQ PRN; +LACTATED RINGER'S 1000 ML IV PRN; +LIDOCAINE 1%/EPINEPHrine 1:100,000 SOLN 30 ML VIAL ONE; +LIDOCAINE HCL 1% PF 5 ML SYRINGE OTHER ONE; +LORazepam 2 MG/ML VIAL ONE; +METOPROLOL TARTRATE 25 MG TAB PO PRN; +METRONIDAZOLE 500 MG/100 ML ISONTONIC SOLN IV SCH; +MIDAZOLAM HCL 2 MG/2 ML VIAL ONE; +MORPHINE SULFATE 4 MG/ML INJ ONE; +MORPHINE SULFATE 8 MG/ML INJ IM PRN; +NEOSTIGMINE 5 MG/5 ML SYRINGE IV PUSH ONE; +ONDANSETRON HCL 4 MG/2 ML VIAL IV ONE; +ONDANSETRON HCL 4 MG/2 ML VIAL IV PUSH PRN; +POVIDONE IODINE 5% (ANTISEPSIS KIT) 4 APPLICATIONS EACH NARE PRN; +PROPOFOL 200 MG/20 ML AMP IV ONE; +RESP: ALBUTEROL 2.5 MG/3 ML NEB (PRN) ONE; +ROCURONIUM INJ 50 MG/5 ML SYRINGE IV PUSH ONE; +SODIUM CHLORID 0.9% 500 ML IV PRN; +traMADol HCL 50 MG TAB PO PRN
[2017-09-03 11:18] VITALS: BP 124/76; PULSE 76; RESP 18; TEMP 97.6; O2SAT 99
--- NOTE | 2017-09-06 08:31 | MP ---
cc: SPENCER GARZA MD, JESSE DATE OF SURGERY 09/03/2017 PREOPERATIVE DIAGNOSES Multiparity desires sterilization. Code Z01.818 POSTOPERATIVE DIAGNOSES 1. Multiparity desires sterilization. Code Z01.818. 2. Paratubal cysts bilaterally. Code N81.3. PROCEDURE Bilateral salpingectomy. Code 29971. SURGEON Spencer Garza MD ANESTHESIA General endotracheal with OG tube. REFRIGERATION ENGINEER [place] staff x1 BLOOD LOSS 5 mL FLUIDS 1000 mL crystalloid. URINE OUTPUT 200 mL clear FINDINGS External genitalia normal. Pop Q score Aa is -1, Ap is -1. Point C is -10. Total vaginal length is 10. Genital hiatus is 6. Perineal body is 4. Uterus is normal size, ante ____ anteflexed. Tubes with paratubal cysts bilaterally. Small 3 cm simple cyst on the left ovary. Right ovary mobile. Upper abdomen normal. SPECIMENS Right and left tubes. COMPLICATIONS None. DISPOSITION To the recovery room stable. COUNTS Needle and sponge counts correct. DRAINS Colón catheter. PROPHYLAXIS Antibiotic prophylaxis Flagyl 500 mg IV. DVT prophylaxis sequential compression device. Time-out procedure and identification per protocol. SUMMARY OF INDICATION AND PROCEDURE The patient with multiparity desires sterilization. The patient had made informed choice to proceed with surgical sterilization. The patient taken to the operating theater, identified, prepped and draped in a fashion appropriate for the planned procedure. She was in dorsolithotomy position, with careful attention paid to placement of legs in stirrups to avoid undue stress to sensitive neurovascular structures. Above findings noted. Neurovascular documented. Colón catheter was placed. Umbilicus was infiltrated with epinephrine and lidocaine solution. Small incision was made and a 5-mm scope was placed under direct visualization. Auxiliary trocars were placed in the left lower quadrant and suprapubically. Using a needle as a guide tubes were identified. Paratubal cysts were noted. These did not appear to be ominous but were removed in toto with the tubes. Tubes were taken down with Harmonic energy in a standard fashion without complication. There was no damage to the bladder, bowel, ovaries. Ureters were clear. Hemostasis was confirmed with expression of CO2 gas. All areas were hemostatic with and without gas pressure. The procedure was concluded. The scopes were repositioned to identify all ports. Gas expressed. Incisions were closed with 4-0 Monocryl and Dermabond. The patient to recovery in stable condition. MD PALAK Quach/CHANDU /9:59 AM /8:28 AM GUILLERMINA
== END | disposition home or self-care (01) ==
LOC: HSDC 07:05
PROVIDERS: ATTEND Obstetrics & Gynecology Gynecology
DX: Z30.2 Encounter for sterilization (principal); F25.9 Schizoaffective disorder, unspecified; F17.210 Nicotine dependence, cigarettes, uncomplicated; N83.8 Other noninflammatory disorders of ovary, fallopian tube and broad ligament
CPT/HCPCS: 00840; 58661; 88302; J1100; J1170; J2060; J2250; J2270; J2405; J2710; J3010; J7120; J7613

== ENCOUNTER 2017-12-26 20:41 | Emergency (ER) | payer MEDICAID ==
[~2017-12-26] VITALS: Ht 160 cm; Wt 95.5 kg
[~2017-12-26 20:41] MED LIST changes: -CHLORHEXIDINE GLUCONATE 2 % 1 PACK (2 CLOTHS) TOPICAL PRN; -CLON.5 PO; -DEXAMETHASONE SOD PHOS 4 MG/ML VIAL IV ONE; -DO NOT ADM ANY ANTICOAGULANT DRUGS PRN; -ESMOLOL HCL 100 MG/10 ML VIAL IV ONE; -FAMOTIDINE 20 MG/2 ML VIAL ONE; -GLYCOPYRROLATE 1 MG/5 ML SYRINGE IV PUSH ONE; -HYDROmorphone HCL PF 2 MG/ML VIAL ONE; -INSULIN HUMAN REGULAR 1,000 UNITS/10 ML VIAL SQ PRN; -LACTATED RINGER'S 1000 ML IV PRN; -LIDOCAINE 1%/EPINEPHrine 1:100,000 SOLN 30 ML VIAL ONE; -LIDOCAINE HCL 1% PF 5 ML SYRINGE OTHER ONE; -LORazepam 2 MG/ML VIAL ONE; -METOPROLOL TARTRATE 25 MG TAB PO PRN; -METRONIDAZOLE 500 MG/100 ML ISONTONIC SOLN IV SCH; -MIDAZOLAM HCL 2 MG/2 ML VIAL ONE; -MORPHINE SULFATE 4 MG/ML INJ ONE; -MORPHINE SULFATE 8 MG/ML INJ IM PRN; -NEOSTIGMINE 5 MG/5 ML SYRINGE IV PUSH ONE; -ONDANSETRON HCL 4 MG/2 ML VIAL IV ONE; -ONDANSETRON HCL 4 MG/2 ML VIAL IV PUSH PRN; -POVIDONE IODINE 5% (ANTISEPSIS KIT) 4 APPLICATIONS EACH NARE PRN; -PROPOFOL 200 MG/20 ML AMP IV ONE; -RESP: ALBUTEROL 2.5 MG/3 ML NEB (PRN) ONE; -ROCURONIUM INJ 50 MG/5 ML SYRINGE IV PUSH ONE; -SODIUM CHLORID 0.9% 500 ML IV PRN; -TRAM50TA PO; -traMADol HCL 50 MG TAB PO PRN
[2017-12-26 20:43] VITALS: BP 151/67; PULSE 72; RESP 16; TEMP 98.3; O2SAT 98
--- NOTE | 2017-12-26 21:20 | PD ---
HPI Chief Complaint: Flank/Kidney Pain Time Seen by Provider: 21:19 Travel History International Travel<30 days: No Contact w/Intl Traveler<30days: No Traveled to known affect area: No History of Present Illness HPI 37-year-old female came to the emergency room with history of lower back pain and flank pain left worse than the right for past 1 week. Patient says the pain worsens when she is standing and ambulating or lifts her child. Currently she says the pain is 7 out of 10. Occasionally it comes to the front of her abdomen. She has had this kind of pain in the past with kidney infections but usually at that time there is associated dysuria. There is no dysuria or hematuria at this time. No history of fever or chills. No history of nausea vomiting. Patient has history of kidney stones one time in the past. Vital signs are stable. She does not appear to be in any significant distress. Patient has had back surgery in the past as per her past medical history. [facility] Past Medical History Narrative Medical List of her past medical, surgical, social and family history is reviewed from the nursing note. Arthritis: Yes Bipolar Disorder: Yes Anxiety: Yes Depression: Yes Cancer: No Cardiovascular Problems: No Diabetes: No Diminished Hearing: No Endocrine: No Gastrointestinal Disorders: Yes (IBS) Genitourinary: No Headaches: No Hiatal Hernia: No Immune Disorder: No Implanted Vascular Access Dvce: No Kidney Stones: Yes Musculoskeletal: No Neurologic: No Psychiatric: Yes (Reports treatment for bipolar disorder since age 13) Reproductive: No Respiratory: Yes (asthma) Immunizations Current: Yes Schizophrenia: Yes (effective) Seizures: No Thyroid Disease: No ?: Unknown LMP: 12/23/17 : 8 Para: 5 Tubal Ligation: Yes Past Surgical History Abdominal Surgery: No AICD: No Cardiac Surgery: No Ear Surgery: No Endocrine Surgery: No Eye Surgery: No Genitourinary Surgery: No Gynecologic Surgery: No Joint Replacement: No Neurologic Surgery: Yes (LUMBAR LAMINECTOMY) Oral Surgery: No Pacemaker: No Thoracic Surgery: No Other Surgery: No Social History Alcohol Use: No Tobacco Use: Yes (1/2PPD) Substance Use: No Allergies-Medications (Allergen,Severity, Reaction): Coded Allergies: erythromycin base (Verified Allergy, Severe, Anaphylaxis, 09/03/17) penicillin G (Verified Allergy, Severe, Anaphylaxis, 09/03/17) clindamycin (Verified Allergy, Intermediate, Nausea/Vomiting, 09/03/17) naproxen (Verified Allergy, Intermediate, Hives, 09/03/17) Sulfa (Sulfonamide Antibiotics) (Verified Allergy, Unknown, 09/03/17) Comments List of her allergies reviewed from the nursing Reported Meds & Prescriptions Reported Meds & Active Scripts Active Flexeril (Cyclobenzaprine HCl) 5 Mg Tab 5 Mg PO TID Ibuprofen 600 Mg Tab 600 Mg PO Q6H PRN Bentyl (Dicyclomine HCl) 10 Mg Cap 10 Mg PO TID PRN Reported Motrin Ib (Ibuprofen) 200 Mg Tablet 400 Mg PO Q6HR Buspirone (Buspirone HCl) 15 Mg Tab 15 Mg PO BID Vitamin C Sr (Ascorbic Acid) 500 Mg Caper 500 Mg PO DAILY Doxycycline Hyclate DR (Doxycycline Hyclate) 200 Mg Tab 200 Mg PO BID Celexa (Citalopram Hydrobromide) 40 Mg Tab 40 Mg PO DAILY Narrative Medication List of her home medications reviewed from the nursing note Review of Systems Except as stated in HPI: all other systems reviewed are Neg Genitourinary: Positive: Flank Pain Musculoskeletal: Positive: Pain Physical Exam Narrative GENERAL: Awake, alert, obese, no obvious distress SKIN: Focused skin assessment warm/dry. HEAD: Atraumatic. Normocephalic. EYES: Pupils equal and round. No scleral icterus. No injection or drainage. ENT: No nasal bleeding or discharge. Mucous membranes pink and moist. NECK: Trachea midline. No JVD. CARDIOVASCULAR: Regular rate and rhythm. No murmur appreciated. RESPIRATORY: No accessory muscle use. Clear to auscultation. Breath sounds equal bilaterally. GASTROINTESTINAL: Abdomen soft, non-tender, nondistended. Hepatic and splenic margins not palpable. MUSCULOSKELETAL: No obvious deformities. No clubbing. No cyanosis. No edema. NEUROLOGICAL: Awake and alert. No obvious cranial nerve deficits. Motor grossly within normal limits. Normal speech. PSYCHIATRIC: Appropriate mood and affect; insight and judgment normal. Data Data Last Documented VS Vital Signs Date Time Temp Pulse Resp B/P (MAP) Pulse Ox O2 Delivery O2 Flow Rate FiO2 12/26/17 20:43 98.3 72 16 151/67 (95) 98 Orders Orders Complete Blood Count With Diff (12/26/17 21:30) Basic Metabolic Panel (Bmp) (12/26/17 21:30) Urinalysis - C+S If Indicated (12/26/17 21:30) Ct Abd/Pel W/O Iv Contrast (12/26/17 21:30) Ecg Monitoring (12/26/17 21:30) Iv Access Insert/Monitor (12/26/17 21:30) Ketorolac Inj (Toradol Inj) (12/26/17 21:30) Sodium Chloride 0.9% Flush (Ns Flush) (12/26/17 21:30) Ed Urine Pregnancytest Poc (12/26/17 21:30) Ed Discharge Order (12/26/17 23:02) Labs Laboratory Tests Test 12/26/17 22:10 White Blood Count 13.4 TH/MM3 Red Blood Count 4.65 MIL/MM3 Hemoglobin 13.5 GM/DL Hematocrit 40.2 % Mean Corpuscular Volume 86.6 FL Mean Corpuscular Hemoglobin 29.0 PG Mean Corpuscular Hemoglobin Concent 33.5 % Red Cell Distribution Width 14.2 % Platelet Count 263 TH/MM3 Mean Platelet Volume 9.2 FL Neutrophils (%) (Auto) 55.7 % Lymphocytes (%) (Auto) 36.4 % Monocytes (%) (Auto) 5.3 % Eosinophils (%) (Auto) 2.0 % Basophils (%) (Auto) 0.6 % Neutrophils # (Auto) 7.5 TH/MM3 Lymphocytes # (Auto) 4.9 TH/MM3 Monocytes # (Auto) 0.7 TH/MM3 Eosinophils # (Auto) 0.3 TH/MM3 Basophils # (Auto) 0.1 TH/MM3 CBC Comment DIFF FINAL Differential Comment Urine Color YELLOW Urine Turbidity CLEAR Urine pH 6.0 Urine Specific [place] 1.016 Urine Protein NEG mg/dL Urine Glucose (UA) NEG mg/dL Urine Ketones NEG mg/dL Urine Occult Blood NEG Urine Nitrite NEG Urine Bilirubin NEG Urine Urobilinogen LESS THAN 2.0 MG/DL Urine Leukocyte Esterase NEG Urine RBC LESS THAN 1 /hpf Urine WBC LESS THAN 1 /hpf Urine Squamous Epithelial Cells 1 /hpf Urine Mucus FEW /lpf Microscopic Urinalysis Comment CULT NOT INDICATED Blood Urea Nitrogen 12 MG/DL Creatinine 0.80 MG/DL Random Glucose 83 MG/DL Calcium Level 9.1 MG/DL Sodium Level 138 MEQ/L Potassium Level 4.2 MEQ/L Chloride Level 109 MEQ/L Carbon Dioxide Level 20.2 MEQ/L Anion Gap 9 MEQ/L Estimat Glomerular Filtration Rate 80 ML/MIN MDM Medical Decision Making Medical Screen Exam Complete: Yes Emergency Medical Condition: Yes Medical Record Reviewed: Yes Differential Diagnosis Pyelonephritis, ureteral colic, acute on chronic back pain Narrative Course 9:49 PM awaiting for blood test results, UA and CT scan to be done and resulted. She has been medicated for pain. Procedures EKG Prior to Arrival: No Diagnosis Primary Impression: Acute exacerbation of chronic low back pain Additional Impressions: Cholelithiasis Qualified Codes: K80.20 - Calculus of gallbladder without cholecystitis without obstruction Hepatomegaly Ovarian cyst Qualified Codes: N83.201 - Unspecified ovarian cyst, right side Leukocytosis Qualified Codes: D72.829 - Elevated white blood cell count, unspecified Referrals: Primary Care Physician 3 days Additional Instructions: Take the medication as per the prescription direction. Drink lots of fluid. Follow-up with your primary care next couple days. Return to the ER if condition worsens or any other new concerns. There were a few incidental findings on the CAT scan including a right ovarian cyst of 2.1 cm and gallstones. Nothing needs to be done about it in the emergency room or emergently. This is for your information. Med/Other Pt SpecificInfo: Prescription(s) given Scripts Cyclobenzaprine (Flexeril) 5 Mg Tab 5 MG PO TID for Muscle Spasm, #12 TAB 0 Refills Prov: Ry Keller MD 12/26/17 Ibuprofen (Ibuprofen) 600 Mg Tab 600 MG PO Q6H Y for Pain/Inflammation, #40 TAB 0 Refills Prov: Ry Keller MD 12/26/17 Disposition: 01 DISCHARGE HOME Condition: Stable Ry Keller MD Dec 26, 2017 21:20
[2017-12-26] MEDS ORDERED: SODIUM CHLORIDE 0.9% FLUSH 10 ML FLUSH IVF PRN (21:30)
[2017-12-26] MEDS ORDERED: KETOROLAC TROMETHAMINE 30 MG/ML (IVP) VIAL IV PUSH ONE (21:30)
--- NOTE | 2017-12-26 22:08 | RADRPT ---
EXAM DATE: 12/26/2017 10:00 PM EDT AGE/SEX: 37 years / Female INDICATIONS: Left flank pain x 4 days. CLINICAL DATA: This is the patient's initial encounter. Patient reports that signs and symptoms have been present for 4 - 6 days and indicates a pain score of 8/10. MEDICAL/SURGICAL HISTORY: Renal calculi. Tubal ligation. RADIATION DOSE: 14.36 CTDI (mGy) [place] [facility] [place], [place] [facility] [place] CONT RAST[place] 07/14/2017. . TECHNIQUE: Multiple contiguous axial images were obtained through the abdomen. Images were obtained using multiple row detector helical technique. Using dose reduction techniques, radiation dose was ke pt as low as reasonably achievable to obtain optimal diagnostic quality images. FINDINGS: Lower Lungs: The visualized lower lungs are clear. Small hiatal hernia is noted. Liver: The liver is enlarged. The liver has a homogeneous density without space-occupying lesion. The re is no dilation of the biliary tree. Tiny calcified gallstones are noted. Spleen: Homogeneous density without enlargement. Pancreas: Unremarkable without mass or calcification. Kidneys: Normal in size and shape. No evidence of mass or hydronephrosis. There is a tiny 2-3 mm brianna cified nonobstructing lower pole right renal calculus. Adrenal Glands: Unremarkable. Aorta: The aorta and proximal iliac vessels are grossly unremarkable without aneurysmal dilation. Bowel/Mesentery: The bowel loops are grossly unremarkable. The cecum and sigmoid colon have a normal configuration. Appendix is normal. Abdominal Wall: Intact. Retroperitoneum: No evidence of adenopathy in the retrocrural, para-aortic, or deep pelvic regions. Bladder: Contours are smooth. Reproductive Organs: No abnormal masses or calcifications seen. There is a 2.1 cm right ovarian cyst . Inguinal: The inguinal region is unremarkable without evidence of adenopathy. Bony Structures: Mild degenerative changes and scoliosis of the thoracolumbar spine are noted. CONCLUSION: 1. No acute obstructive uropathy. 2. Hepatomegaly. 3. Tiny calcified gallstones. 4. 2-3 mm calcified nonobstructing lower pole right renal calculus. 5. 2.1 cm right ovarian cyst. 6. Degenerative changes and scoliosis of the thoracolumbar spine. Electronically signed by: Pedro Wilder MD 12/26/2017 10:06 PM EDT
[2017-12-26 22:28] LABS: AUTOMATED NEUTROPHIL # 7.5 TH/MM3 (1.8-7.7); BASOPHIL # 0.1 TH/MM3 (0-0.2); BASOPHIL % 0.6 % (0.0-2.0); EOSINOPHIL # 0.3 TH/MM3 (0-0.4); HEMATOCRIT 40.2 % (35.0-46.0); HEMOGLOBIN 13.5 GM/DL (11.6-15.3); LYMPH % 36.4 % (9.0-44.0); LYMPHOCYTE # 4.9 TH/MM3 (1.0-4.8); MEAN CELL VOLUME 86.6 FL (80.0-100.0); MEAN CORPUSCULAR HGB CONC 33.5 % (32.0-36.0); MEAN PLATELET VOLUME 9.2 FL (7.0-11.0); MONO % 5.3 % (0.0-8.0); MONOCYTE # 0.7 TH/MM3 (0-0.9); NEUT % 55.7 % (16.0-70.0); PLATELET COUNT 263 TH/MM3 (150-450); RED BLOOD COUNT 4.65 MIL/MM3 (4.00-5.30); RED CELL DISTRIBUTION WIDTH 14.2 % (11.6-17.2); WHITE BLOOD COUNT 13.4 TH/MM3 (4.0-11.0)
[2017-12-26 22:32] LABS: BILIRUBIN, URINE NEG (NEG); BLOOD, URINE NEG (NEG); GLUCOSE,URINE NEG (NEG); KETONE, URINE NEG (NEG); MUCUS URINE FEW /lpf (OCC); NITRITE,URINE NEG (NEG); SQUAMOUS EPITHELIAL CELL URINE 1 /hpf (0-5); URINE COLOR YELLOW (YELLW/STRAW); URINE LEUKOCYTE ESTERASE NEG (NEG)
[2017-12-26 22:50] LABS: BICARBONATE 20.2 MEQ/L (21.0-32.0); CALCIUM 9.1 MG/DL (8.5-10.1); CREATININE 0.8 MG/DL (0.50-1.00)
[2017-12-26] MEDS ORDERED: CYCL5TAB PO (23:02)
[2017-12-26] MEDS ORDERED: IBUP-232 PO (23:02)
== END 2017-12-27 00:15 | disposition home or self-care (01) ==
LOC: NEPD 20:41
DX: M54.5 Low back pain (principal); G89.29 Other chronic pain; K80.20 Calculus of gallbladder without cholecystitis without obstruction; R16.0 Hepatomegaly, not elsewhere classified; N83.201 Unspecified ovarian cyst, right side; D72.829 Elevated white blood cell count, unspecified; N20.0 Calculus of kidney; J45.909 Unspecified asthma, uncomplicated; Z87.19 Personal history of other diseases of the digestive system
CPT/HCPCS: 74176; 80048; 81001; 84703; 85025; 96374; 99284; J1885